=== PATIENT | male | born 1935 | race Caucasian/White ===

== ENCOUNTER → 2018-12-11 10:19 | Outpatient (CLI) | payer MEDICARE, SELFPAY ==
--- NOTE | 2018-12-11 10:28 | XR_ITS ---
XR foot wt bearing LT 3V HISTORY: Pain, ulceration ITS.REASON: Pressure ulcer ORDERING PHYSICIAN: La Colon DPM PATIENT AGE: 83 years COMPARISON: None FINDINGS: There is generalized vascular calcification. There is some increased density within Kagers fat pad suggesting some underlying inflammation or fluid. A small focal defect is present involving the first or aspect of the cuboid as seen on the lateral view. This does appear present well-circumscribed and may be chronic. Mild osteoarthritic changes are present at the first metatarsal tarsal joint. Normal alignment. No fracture or dislocation. IMPRESSION: Nonspecific findings with no definite acute finding
--- NOTE | 2018-12-11 10:28 | XR_ITS ---
XR calcaneus LT min 2V CLINICAL INDICATION: Pain, evaluate foreign body ITS.REASON: Pain, r/o FB ORDERING PHYSICIAN: La Colon DPM PATIENT AGE: 83 years Comparison: None FINDINGS: No radio opaque foreign body is evident over the calcaneus. There are small surgical clips along the lower tibia. There is vascular calcification noted. No evidence of osteomyelitis of the calcaneus. IMPRESSION: No acute finding of the calcaneus
== END ==
PROVIDERS: PCP Internal Medicine; Visit Provider Podiatrist
DX: L97.922 Non-pressure chronic ulcer of unspecified part of left lower leg with fat layer exposed (principal); L89.629 Pressure ulcer of left heel, unspecified stage
CPT/HCPCS: 73630; 73650

== ENCOUNTER → 2019-04-08 11:16 | Outpatient (CLI) | payer MEDICARE, SELFPAY ==
--- NOTE | 2019-04-08 11:33 | XR_ITS ---
XR chest 2V HISTORY: ITS.REASON: CHEST PAIN,HTN ORDERING PHYSICIAN: Oseas Kemp PATIENT AGE: 83 years COMPARISON: 12/12/1716 FINDINGS: There has been a prior median sternotomy and CABG. There is COPD with scattered fibrotic changes with elevation of the right hemidiaphragm. No lobar consolidation or collapse. The atelectatic/fibrotic changes appear slightly worse in the right lung base. 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 IMPRESSION: COPD with scattered fibrotic changes which appear slightly worse in the right lung base
[2019-04-08 14:26] LABS: Basophils % 0.4 % (0.1-2.0); Eosinophils # 0.1 K/mm3 (0.0-0.4); Eosinophils % 1.8 % (0.1-12.0); Hematocrit 40.4 % (42.0-52.0); Hemoglobin 12.6 g/dL (14.1-18.0); Lymphocytes # 1.6 K/mm3 (0.7-4.5); Lymphocytes % 25.8 % (10-50); Mean Corpuscular HGB Conc 31.3 g/dL (31.8-35.4); Mean Corpuscular Hemoglobin 30.4 pg (27.0-31.2); Mean Corpuscular Volume 97.1 fl (80-94); Monocytes # 0.5 K/mm3 (0.1-1.0); Monocytes % 7.5 % (1.7-9.3); Neutrophils # 4.1 K/mm3 (1.8-7.8); Neutrophils % 64.6 % (37.0-80.0); Platelet Count 193 K/mm3 (142-424); Red Blood Count 4.16 M/mm3 (4.60-6.20); Red Cell Distribution Width 12.7 % (11.5-17.5); White Blood Count 6.3 K/mm3 (4.8-10.8)
[2019-04-08 15:24] LABS: Glucose 105 mg/dL (74-106)
[2019-04-08 15:31] LABS: Anion Gap 12.1 mEq/L (5-15); Blood Urea Nitrogen 41 mg/dL (7-18); Calcium 8.9 mg/dL (8.5-10.1); Carbon Dioxide 27 mmol/L (21.0-32.0); Chloride 103 mmol/L (98-107); Creatinine,Serum 2.07 mg/dL (0.70-1.30); Estimated Glomerular Filt Rate 31 ml/min (>60); GFR (African American) 37 ML/MIN (>60); Potassium 5.1 mmoL/L (3.5-5.1); Sodium 137 mmol/L (136-145)
== END ==
PROVIDERS: PCP Internal Medicine; Visit Provider Internal Medicine
DX: R07.9 Chest pain, unspecified (principal); I25.10 Atherosclerotic heart disease of native coronary artery without angina pectoris; I10 Essential (primary) hypertension
CPT/HCPCS: 36415; 71046; 80048; 84484; 85025; 93005

== ENCOUNTER → 2021-05-19 14:57 | Outpatient (CLI) | payer MEDICARE, SELFPAY ==
--- NOTE | 2021-05-19 15:03 | XR_ITS ---
PROCEDURE: XR CERVICAL SPINE 5V CLINICAL INDICATION: LT NECK PAIN COMPARISON: No exams were available for comparison FINDINGS: There is slight reversal of the cervical lordosis. There is 3 mm anterolisthesis of C3 on C4 and 2 mm anterolisthesis of C2 on C3. Degenerative disc disease present at C4-C5 and C5-C6 with loss of disc space and anterior osteophytes. C7 is not well visualized despite a swimmer's view. Foraminal narrowing is present on the right from C3-T1 and on the left from C2-T1. Prominent facet hypertrophic changes are present from C3 to the C7. the patient's head is tilted toward the left. Incidental carotid artery calcifications noted on the left. No obvious acute fracture or dislocation. No lytic or blastic change. IMPRESSION: Multilevel cervical spondylosis as described above. Dictated by: Suman Finney MD 05/19/2021 15:35 Suman Finney MD in [facility] 05/19/2021 15:35
[2021-05-19 18:15] LABS: Basophils % 0.4 % (0.1-2.0); Eosinophils # 0.1 K/mm3 (0.0-0.4); Eosinophils % 0.9 % (0.1-12.0); Hematocrit 38.9 % (42.0-52.0); Hemoglobin 12.8 g/dL (14.1-18.0); Lymphocytes # 1.9 K/mm3 (0.7-4.5); Lymphocytes % 27.4 % (10-50); Mean Corpuscular HGB Conc 32.9 g/dL (31.8-35.4); Mean Corpuscular Hemoglobin 32.3 pg (27.0-31.2); Mean Corpuscular Volume 98.3 fl (80-94); Mean Platelet Volume 10.6 fl (7.4-10.4); Monocytes # 0.5 K/mm3 (0.1-1.0); Monocytes % 6.5 % (1.7-9.3); Neutrophils # 4.4 K/mm3 (1.8-7.8); Neutrophils % 64.8 % (37.0-80.0); Platelet Count 188 K/mm3 (142-424); Red Blood Count 3.96 M/mm3 (4.60-6.20); Red Cell Distribution Width 13.3 % (11.5-17.5); White Blood Count 6.9 K/mm3 (4.8-10.8)
[2021-05-19 19:14] LABS: Anion Gap 14.9 mEq/L (5-15); Blood Urea Nitrogen 49 mg/dl (9-20); Calcium 8.9 mg/dl (8.4-10.2); Carbon Dioxide 22 mmol/L (22.0-30.0); Chloride 108 mmol/L (98-107); Estimated Glomerular Filt Rate 39 ml/min (>60); GFR (African American) 47 ML/MIN (>60); Glucose 97 mg/dl (74-100); Potassium 4.9 mmoL/L (3.5-5.1); Sodium 140 mmol/L (136-145)
[2021-05-19 21:57] LABS: Erythrocyte Sedimentation Rate 26 mm/hr (0-20)
== END ==
PROVIDERS: PCP Internal Medicine; Visit Provider Internal Medicine
DX: M54.2 Cervicalgia (principal)
CPT/HCPCS: 72050; 80048; 85025; 85651

== ENCOUNTER → 2021-06-01 14:42 | Outpatient (CLI) | payer MEDICARE, SELFPAY ==
--- NOTE | 2021-06-01 14:47 | MR_ITS ---
PROCEDURE: MR HEAD/BRAIN WO CON CLINICAL INDICATION: HEADACHE WITH JAW PAIN Left-sided headache COMPARISON: No exams were available for comparison TECHNIQUE: Routine multiplanar multi echo sequences are performed without gadolinium enhancement. FINDINGS: No midline shift, mass effect, intracranial hemorrhage, or hydrocephalus evident. The cerebellopontine angles, cerebellum, and brainstem have an unremarkable appearance. There are a few T2 white matter hyperintensities in the periventricular region and 1 in the right basal ganglia consistent with ischemic gliotic changes from microvascular disease. No evidence of acute infarction. The pituitary, optic chiasm, corpus callosum, and craniocervical junction have an unremarkable appearance. No mastoid effusion or sinus air-fluid level. IMPRESSION: No acute intracranial findings. Dictated by: Suman Finney MD 06/02/2021 08:06 Suman Finney MD in [facility] 06/02/2021 08:06
== END ==
PROVIDERS: PCP Internal Medicine; Visit Provider Internal Medicine
DX: R51.9 Headache, unspecified (principal); R68.84 Jaw pain
CPT/HCPCS: 70551

== ENCOUNTER → 2021-08-18 12:26 | Outpatient (CLI) | payer MEDICARE, SELFPAY ==
[2021-08-18 12:57] LABS: Basophils % 0.2 % (0.1-2.0); Eosinophils # 0.1 K/mm3 (0.0-0.4); Eosinophils % 1.6 % (0.1-12.0); Hematocrit 34.5 % (42.0-52.0); Hemoglobin 11.5 g/dL (14.1-18.0); Lymphocytes # 1.5 K/mm3 (0.7-4.5); Lymphocytes % 25.6 % (10-50); Mean Corpuscular HGB Conc 33.3 g/dL (31.8-35.4); Mean Corpuscular Hemoglobin 33.2 pg (27.0-31.2); Mean Corpuscular Volume 99.9 fl (80-94); Mean Platelet Volume 10.5 fl (7.4-10.4); Monocytes # 0.4 K/mm3 (0.1-1.0); Monocytes % 7.3 % (1.7-9.3); Neutrophils # 3.7 K/mm3 (1.8-7.8); Neutrophils % 65.2 % (37.0-80.0); Platelet Count 176 K/mm3 (142-424); Red Blood Count 3.45 M/mm3 (4.60-6.20); Red Cell Distribution Width 12.8 % (11.5-17.5); White Blood Count 5.7 K/mm3 (4.8-10.8)
[2021-08-18 13:34] LABS: Alanine Aminotransferase 4 U/L (12-78); Albumin Level 3.4 g/dl (3.5-5.0); Albumin/Globulin Ratio 1.4 (1.1-1.8); Alkaline Phosphatase 64 U/L (38-126); Anion Gap 9.5 mEq/L (5-15); Aspartate Amino Transferase 20 U/L (17-59); Bilirubin,Total 0.5 mg/dl (0.2-1.3); Blood Urea Nitrogen 34 mg/dl (9-20); Calcium 8.7 mg/dl (8.4-10.2); Carbon Dioxide 29 mmol/L (22.0-30.0); Chloride 108 mmol/L (98-107); Chol/HDL Ratio 3.2 (1-3.5); Cholesterol 108 mg/dl (140-200); Estimated Glomerular Filt Rate 38 ml/min (>60); GFR (African American) 47 ML/MIN (>60); Globulin 2.5 g/dL (1.3-3.2); Glucose 92 mg/dl (74-100); HDL Cholesterol 34 mg/dl (40-60); Potassium 4.5 mmoL/L (3.5-5.1); Sodium 142 mmol/L (136-145); Total Protein,Serum 5.9 g/dl (6.3-8.2); Triglycerides 98 mg/dl (30-150); VLDL Cholesterol 20 mg/dL (0-40)
[2021-08-18 13:37] LABS: Carbamazepine (Tegretol) < 3.0 ug/ml (4.0-12.0)
[2021-08-18 13:42] LABS: Direct LDL Cholesterol 52.64 mg/dL (100-129)
[2021-08-18 16:33] LABS: Hemoglobin A1C 5.5 % (4.0-6.0)
== END ==
PROVIDERS: Visit Provider Internal Medicine
DX: I25.110 Atherosclerotic heart disease of native coronary artery with unstable angina pectoris (principal); I10 Essential (primary) hypertension; E78.5 Hyperlipidemia, unspecified; R73.01 Impaired fasting glucose; N18.2 Chronic kidney disease, stage 2 (mild); G50.0 Trigeminal neuralgia; B02.8 Zoster with other complications; Z51.81 Encounter for therapeutic drug level monitoring
CPT/HCPCS: 80053; 80061; 80156; 83036; 85025

== ENCOUNTER → 2021-11-26 16:12 | Outpatient (CLI) | payer MEDICARE, SELFPAY ==
[2021-11-26 16:25] LABS: Microscopic, Urine URINE MICROSCOPIC (MICROSCOPIC)
--- NOTE | 2021-11-26 16:35 | CT_ITS ---
PROCEDURE INFORMATION: Exam: CT Abdomen And Pelvis Without Contrast Exam date and time: 11/26/2021 4:35 PM Age: 86 years old Clinical indication: Abdominal pain; Localized; Left lower quadrant (llq); Prior surgery; Surgery type: Appendix; Patient HX: Llq pain; Additional info: Pain in abd TECHNIQUE: Imaging protocol: Computed tomography of the abdomen and pelvis without contrast. Radiation optimization: All CT scans at this facility use at least one of these dose optimization techniques: automated exposure control; mA and/or kV adjustment per patient size (includes targeted exams where dose is matched to clinical indication); or iterative reconstruction. COMPARISON: No relevant prior studies available. FINDINGS: Tubes, catheters and devices: There are sternal wires consistent with previous sternotomy incision. Lungs: Scarring/atelectasis at the lung bases without acute findings. Diaphragm: There is nonspecific elevation of the right hemidiaphragm. A small hiatal hernia is present. Liver: Normal. No mass. Gallbladder and bile ducts: Normal. No calcified stones. No ductal dilation. Pancreas: Normal. No ductal dilation. Spleen: Normal. No splenomegaly. Adrenal glands: Normal. No mass. Kidneys and ureters: Subcentimeter right renal hypodense lesions are too small to characterize but most probably benign representing cysts. The right kidney is otherwise unremarkable. The right ureter is normal. The left ureter is normal. The left kidney is normal. Stomach and bowel: Right upper quadrant colonic and gastric interposition. Diffusely air-filled loops of large bowel, as can be seen with bloating. No bowel obstruction. Colonic diverticulosis. No bowel wall thickening. Appendix: A normal appendix is identified. Intraperitoneal space: No free fluid, fluid collections, or pneumoperitoneum. Vasculature: The vasculature demonstrates diffuse marked atherosclerotic calcification. Lymph nodes: No retroperitoneal, pelvic, or mesenteric adenopathy. Urinary bladder: The bladder is decompressed. Reproductive: Unremarkable as visualized. Bones/joints: Prior lumbosacral spine fixation without discrete complications. No acute skeletal pathology. Severe multilevel degenerative changes of the spine, as manifested by multilevel anterior osteophytes and multilevel decrease in intervertebral disc space. Soft tissues: No acute body wall soft tissue findings. IMPRESSION: 1. Bloating and constipation without bowel obstruction or bowel inflammatory changes. 2. No other acute abdominopelvic pathology identified. 3. Incidental findings as above. COMMENTS: Consistent with the [employer]'s Incidental Findings Committee white paper (J Am Tyra Radiol 2018): Any incidental renal lesion less than 1 cm or classified as too small to characterize, or any incidental cystic renal lesion characterized as simple-appearing, is likely benign. No follow-up imaging is recommended for these lesions per consensus recommendations based on imaging criteria.
[2021-11-26 16:53] LABS: Appearance,Urine CLEAR (Clear); Bilirubin,Urine Negative (Negative); Blood, Urine 1+ (Negative); Color,Urine YELLOW (Yellow); Glucose,Urine (UA) Negative (Negative); Ketones,Urine Negative (Negative); Leukocyte Esterase,Urine Negative (Negative); Nitrate,Urine Negative (Negative); Protein,Urine Negative (Negative)
[2021-11-26 17:06] LABS: WBC,Urine Occasional #/hpf (0-3)
[2021-11-26 17:07] LABS: Bacteria,Urine Trace /lpf
[2021-11-26 17:10] LABS: Basophils % 0.5 % (0.1-2.0); Eosinophils # 0.1 K/mm3 (0.0-0.4); Eosinophils % 0.6 % (0.1-12.0); Hematocrit 41.1 % (42.0-52.0); Hemoglobin 13.5 g/dL (14.1-18.0); Lymphocytes # 2.7 K/mm3 (0.7-4.5); Lymphocytes % 31.7 % (10-50); Mean Corpuscular HGB Conc 32.8 g/dL (31.8-35.4); Mean Corpuscular Hemoglobin 32.7 pg (27.0-31.2); Mean Corpuscular Volume 99.8 fl (80-94); Mean Platelet Volume 10.1 fl (7.4-10.4); Monocytes # 0.6 K/mm3 (0.1-1.0); Monocytes % 7.2 % (1.7-9.3); Neutrophils # 5.2 K/mm3 (1.8-7.8); Platelet Count 205 K/mm3 (142-424); Red Blood Count 4.12 M/mm3 (4.60-6.20); Red Cell Distribution Width 12.5 % (11.5-17.5); White Blood Count 8.6 K/mm3 (4.8-10.8)
== END ==
PROVIDERS: PCP Internal Medicine; Visit Provider Internal Medicine
DX: R10.32 Left lower quadrant pain (principal)
CPT/HCPCS: 36415; 74176; 81001; 85025

== ENCOUNTER → 2022-02-15 11:42 | Outpatient (CLI) | payer MEDICARE, SELFPAY ==
[2022-02-15 14:32] LABS: Alanine Aminotransferase 12 U/L (12-78); Albumin Level 3.4 g/dl (3.5-5.0); Albumin/Globulin Ratio 1.3 (1.1-1.8); Alkaline Phosphatase 70 U/L (38-126); Anion Gap 13.1 mEq/L (5-15); Aspartate Amino Transferase 18 U/L (17-59); Bilirubin,Total 0.4 mg/dl (0.2-1.3); Blood Urea Nitrogen 41 mg/dl (9-20); Calcium 8.4 mg/dl (8.4-10.2); Carbon Dioxide 24 mmol/L (22.0-30.0); Chloride 106 mmol/L (98-107); Chol/HDL Ratio 3.1 (1-3.5); Cholesterol 113 mg/dl (140-200); Estimated Glomerular Filt Rate 41 ml/min (>60); GFR (African American) 50 ML/MIN (>60); Globulin 2.6 g/dL (1.3-3.2); Glucose 97 mg/dl (74-100); HDL Cholesterol 37 mg/dl (40-60); Potassium 4.1 mmoL/L (3.5-5.1); Sodium 139 mmol/L (136-145); Triglycerides 85 mg/dl (30-150); VLDL Cholesterol 17 mg/dL (0-40)
== END ==
PROVIDERS: PCP Internal Medicine; Visit Provider Internal Medicine
DX: I25.10 Atherosclerotic heart disease of native coronary artery without angina pectoris (principal); I10 Essential (primary) hypertension; E78.5 Hyperlipidemia, unspecified; N18.30 Chronic kidney disease, stage 3 unspecified
CPT/HCPCS: 80053; 80061

== ENCOUNTER → 2022-05-17 15:45 | Outpatient (CLI) | payer MEDICARE, SELFPAY | PROVIDERS: PCP Internal Medicine; Visit Provider Internal Medicine | DX: U07.1 COVID-19 (principal) | CPT/HCPCS: C9803; U0003; U0005 ==

== ENCOUNTER → 2022-08-31 13:56 | Outpatient (CLI) | payer MEDICARE, SELFPAY ==
[2022-08-31 15:48] LABS: Basophils % 0.4 % (0.1-2.0); Eosinophils # 0.1 K/mm3 (0.0-0.4); Eosinophils % 1.5 % (0.1-12.0); Hematocrit 35.8 % (42.0-52.0); Hemoglobin 11.8 g/dL (14.1-18.0); Lymphocytes # 2.1 K/mm3 (0.7-4.5); Lymphocytes % 30.9 % (10-50); Mean Corpuscular Hemoglobin 33.2 pg (27.0-31.2); Mean Corpuscular Volume 100.6 fl (80-94); Mean Platelet Volume 10.4 fl (7.4-10.4); Monocytes # 0.6 K/mm3 (0.1-1.0); Neutrophils % 58.2 % (37.0-80.0); Platelet Count 191 K/mm3 (142-424); Red Blood Count 3.56 M/mm3 (4.60-6.20); Red Cell Distribution Width 12.8 % (11.5-17.5); White Blood Count 6.8 K/mm3 (4.8-10.8)
[2022-08-31 16:42] LABS: Alanine Aminotransferase 13 U/L (12-78); Albumin Level 3.7 g/dl (3.5-5.0); Albumin/Globulin Ratio 1.4 (1.1-1.8); Alkaline Phosphatase 98 U/L (38-126); Anion Gap 13.5 mEq/L (5-15); Aspartate Amino Transferase 19 U/L (17-59); Bilirubin,Total 0.6 mg/dl (0.2-1.3); Blood Urea Nitrogen 39 mg/dl (9-20); Calcium 8.5 mg/dl (8.4-10.2); Carbon Dioxide 26 mmol/L (22.0-30.0); Chloride 105 mmol/L (98-107); Chol/HDL Ratio 3.2 (1-3.5); Cholesterol 125 mg/dl (140-200); Estimated Glomerular Filt Rate 36 ml/min (>60); GFR (African American) 44 ML/MIN (>60); Globulin 2.6 g/dL (1.3-3.2); Glucose 92 mg/dl (74-100); HDL Cholesterol 39 mg/dl (40-60); Potassium 4.5 mmoL/L (3.5-5.1); Sodium 140 mmol/L (136-145); Total Protein,Serum 6.3 g/dl (6.3-8.2); Triglycerides 115 mg/dl (30-150); VLDL Cholesterol 23 mg/dL (0-40)
[2022-08-31 16:53] LABS: Direct LDL Cholesterol 58.16 mg/dL (100-129)
[2022-08-31 17:11] LABS: Prostate Specific Ag Screen 0.4 ng/ml (0.0-4.0)
[2022-08-31 23:50] LABS: Folate 5.94 ng/mL; Vitamin B12 239 pg/mL (239-931)
== END ==
PROVIDERS: PCP Internal Medicine; Visit Provider Internal Medicine
DX: I25.10 Atherosclerotic heart disease of native coronary artery without angina pectoris (principal); I10 Essential (primary) hypertension; E78.5 Hyperlipidemia, unspecified; D75.89 Other specified diseases of blood and blood-forming organs; N40.1 Benign prostatic hyperplasia with lower urinary tract symptoms; Z12.5 Encounter for screening for malignant neoplasm of prostate
CPT/HCPCS: 80053; 80061; 82607; 82746; 85025; G0103

== ENCOUNTER → 2023-02-28 12:30 | Outpatient (CLI) | payer MEDICARE, SELFPAY ==
[2023-02-28 16:21] LABS: Basophils % 0.3 % (0.1-2.0); Eosinophils # 0.2 K/mm3 (0.0-0.4); Eosinophils % 3.2 % (0.1-12.0); Hematocrit 33.8 % (42.0-52.0); Hemoglobin 10.8 g/dL (14.1-18.0); Lymphocytes # 1.3 K/mm3 (0.7-4.5); Lymphocytes % 22.4 % (10-50); Mean Corpuscular Volume 100.3 fl (80-94); Mean Platelet Volume 10.1 fl (7.4-10.4); Monocytes # 0.4 K/mm3 (0.1-1.0); Monocytes % 7.7 % (1.7-9.3); Neutrophils # 3.8 K/mm3 (1.8-7.8); Neutrophils % 66.5 % (37.0-80.0); Platelet Count 130 K/mm3 (142-424); Red Blood Count 3.37 M/mm3 (4.60-6.20); Red Cell Distribution Width 12.5 % (11.5-17.5); White Blood Count 5.8 K/mm3 (4.8-10.8)
[2023-02-28 16:48] LABS: Alanine Aminotransferase 15 U/L (12-78); Albumin Level 3.3 g/dl (3.5-5.0); Albumin/Globulin Ratio 1.4 (1.1-1.8); Alkaline Phosphatase 68 U/L (38-126); Anion Gap 15.4 mEq/L (5-15); Aspartate Amino Transferase 18 U/L (17-59); Bilirubin,Total 0.5 mg/dl (0.2-1.3); Blood Urea Nitrogen 47 mg/dl (9-20); Calcium 7.8 mg/dl (8.4-10.2); Carbon Dioxide 24 mmol/L (22.0-30.0); Chloride 107 mmol/L (98-107); Chol/HDL Ratio 2.5 (1-3.5); Cholesterol 96 mg/dl (140-200); Estimated Glomerular Filt Rate 36 ml/min (>60); GFR (African American) 44 ML/MIN (>60); Globulin 2.4 g/dL (1.3-3.2); Glucose 93 mg/dl (74-100); HDL Cholesterol 38 mg/dl (40-60); Potassium 4.4 mmoL/L (3.5-5.1); Sodium 142 mmol/L (136-145); Total Protein,Serum 5.7 g/dl (6.3-8.2); Triglycerides 87 mg/dl (30-150); VLDL Cholesterol 17 mg/dL (0-40)
[2023-02-28 16:59] LABS: Direct LDL Cholesterol 45.75 mg/dL (100-129)
== END ==
PROVIDERS: PCP Internal Medicine; Visit Provider Internal Medicine
DX: I25.10 Atherosclerotic heart disease of native coronary artery without angina pectoris (principal); I10 Essential (primary) hypertension; E78.5 Hyperlipidemia, unspecified; M15.0 Primary generalized (osteo)arthritis; N18.9 Chronic kidney disease, unspecified
CPT/HCPCS: 80053; 80061; 85025

== ENCOUNTER → 2023-08-30 11:54 | Outpatient (CLI) | payer MEDICARE, SELFPAY ==
[2023-08-30 14:27] LABS: Alanine Aminotransferase 14 U/L (12-78); Albumin Level 3.6 g/dl (3.5-5.0); Albumin/Globulin Ratio 1.4 (1.1-1.8); Alkaline Phosphatase 58 U/L (38-126); Anion Gap 10.4 mEq/L (5-15); Aspartate Amino Transferase 18 U/L (17-59); Bilirubin,Total 0.6 mg/dl (0.2-1.3); Blood Urea Nitrogen 44 mg/dl (9-20); Calcium 7.8 mg/dl (8.4-10.2); Carbon Dioxide 26 mmol/L (22.0-30.0); Chloride 106 mmol/L (98-107); Chol/HDL Ratio 2.4 (1-3.5); Cholesterol 92 mg/dl (140-200); Estimated Glomerular Filt Rate 34 ml/min (>60); GFR (African American) 41 ML/MIN (>60); Globulin 2.5 g/dL (1.3-3.2); Glucose 98 mg/dl (74-100); HDL Cholesterol 39 mg/dl (40-60); Potassium 4.4 mmoL/L (3.5-5.1); Sodium 138 mmol/L (136-145); Total Protein,Serum 6.1 g/dl (6.3-8.2); Triglycerides 69 mg/dl (30-150); VLDL Cholesterol 14 mg/dL (0-40)
[2023-08-30 14:38] LABS: Direct LDL Cholesterol 46.41 mg/dL (100-129)
[2023-08-30 14:57] LABS: Prostate Specific Ag Screen 0.4 ng/ml (0.0-4.0)
== END ==
PROVIDERS: PCP Internal Medicine; Visit Provider Internal Medicine
DX: I25.10 Atherosclerotic heart disease of native coronary artery without angina pectoris (principal); I10 Essential (primary) hypertension; E78.5 Hyperlipidemia, unspecified; M15.0 Primary generalized (osteo)arthritis; N40.1 Benign prostatic hyperplasia with lower urinary tract symptoms; Z12.5 Encounter for screening for malignant neoplasm of prostate
CPT/HCPCS: 80053; 80061; G0103

== ENCOUNTER 2023-12-11 15:36 | Outpatient (CLI) | payer MEDICARE, SELFPAY ==
[2023-12-11 16:00] LABS: Basophils % 0.4 % (0.1-2.0); Eosinophils # 0.1 K/mm3 (0.0-0.4); Eosinophils % 1.1 % (0.1-12.0); Hematocrit 34.9 % (42.0-52.0); Hemoglobin 11.3 g/dL (14.1-18.0); Lymphocytes # 1.2 K/mm3 (0.7-4.5); Lymphocytes % 19.8 % (10-50); Mean Corpuscular HGB Conc 32.4 g/dL (31.8-35.4); Mean Corpuscular Hemoglobin 34.3 pg (27.0-31.2); Mean Corpuscular Volume 105.8 fl (80-94); Mean Platelet Volume 10.4 fl (7.4-10.4); Monocytes # 0.4 K/mm3 (0.1-1.0); Monocytes % 5.7 % (1.7-9.3); Neutrophils # 4.5 K/mm3 (1.8-7.8); Neutrophils % 73.1 % (37.0-80.0); Platelet Count 142 K/mm3 (142-424); Red Cell Distribution Width 12.9 % (11.5-17.5); White Blood Count 6.1 K/mm3 (4.8-10.8)
--- NOTE | 2023-12-11 16:03 | XR_ITS ---
FINAL REPORT CLINICAL HISTORY: HEADACHE; SHORTNESS OF BREATH; COUGH COMPARISON: 04/08/2019 FINDINGS: Two views of the chest were obtained. There is cardiomegaly. The patient is status post median sternotomy. There is elevation of the right hemidiaphragm. Right basilar opacities are favored to represent atelectasis over pneumonia. There is no pneumothorax. The bony thorax is intact. IMPRESSION: Right basilar opacities are favored to represent atelectasis over pneumonia. Reviewed, Interpreted and Dictated by Chilango Canales III, MD Transcribed by Aria Schultz Authenticated and [facility]
[2023-12-11 16:11] LABS: Alanine Aminotransferase 13 U/L (12-78); Albumin Level 3.7 g/dl (3.5-5.0); Albumin/Globulin Ratio 1.3 (1.1-1.8); Alkaline Phosphatase 66 U/L (38-126); Anion Gap 12.2 mEq/L (5-15); Aspartate Amino Transferase 17 U/L (17-59); Blood Urea Nitrogen 41 mg/dl (9-20); Calcium 8.9 mg/dl (8.4-10.2); Carbon Dioxide 23 mmol/L (22.0-30.0); Chloride 109 mmol/L (98-107); Estimated Glomerular Filt Rate 34 ml/min (>60); GFR (African American) 41 ML/MIN (>60); Globulin 2.9 g/dL (1.3-3.2); Glucose 109 mg/dl (74-100); Potassium 4.2 mmoL/L (3.5-5.1); Sodium 140 mmol/L (136-145); Total Protein,Serum 6.6 g/dl (6.3-8.2)
[2023-12-11 16:22] LABS: NT Pro Brain Natriuretic Pep. 6980 pg/mL (0-450)
[2023-12-11 17:04] LABS: Erythrocyte Sedimentation Rate 53 mm/hr (0-20)
== END 2023-12-11 23:59 ==
LOC: LAB 15:38
PROVIDERS: PCP Internal Medicine; Visit Provider Internal Medicine
DX: R06.02 Shortness of breath (principal); R05.1 Acute cough; R51.9 Headache, unspecified
CPT/HCPCS: 36415; 71046; 80053; 83880; 85025; 85651

== ENCOUNTER 2023-12-16 20:12 | Emergency (ER) | payer MEDICARE, SELFPAY ==
[2023-12-16 20:20] VITALS: BP 160/80; PULSE 104; RESP 24; TEMP 36.4; O2SAT 94; BMI 33.5
--- NOTE | 2023-12-16 20:23 | ECG_ITS ---
APPROVED REPORT Exam: Resting ECG HR:105 bpm ECG Measurements Heart Rate 105 AXES TX 148 P 45 QRSd 85 QRS 45 QT 339 T 2 QTc 400 Critical Notification Critical Value: No Conclusion SINUS TACHYCARDIA WITH FREQUENT VENTRICULAR PREMATURE COMPLEXES NONSPECIFIC T-WAVE ABNORMALITY ABNORMAL RHYTHM ECG Electronically signed by : ABRAHAN COMBS, 12/17/2023 01:48:06
--- NOTE | 2023-12-16 20:35 | XR_ITS ---
PROCEDURE INFORMATION: Exam: XR Right Shoulder Exam date and time: 12/16/2023 9:30 PM Age: 88 years old Clinical indication: Pain; Shoulder; Right; Additional info: Severe atraumatic pain TECHNIQUE: Imaging protocol: Radiologic exam of the right shoulder. Views: 2 or more views. COMPARISON: CT SHOULDER RT W CON 12/16/2023 9:13 PM FINDINGS: Bones/joints: Severe degenerative change of the acromioclavicular and glenohumeral joints. No fracture or destructive lesion. Soft tissues: Normal. IMPRESSION: Severe degenerative change of the acromioclavicular and glenohumeral joints.
--- NOTE | 2023-12-16 20:35 | CT_ITS ---
PROCEDURE INFORMATION: Exam: CTA Chest With Contrast Exam date and time: 12/16/2023 9:13 PM Age: 88 years old Clinical indication: Pain; Right-sided; Additional info: Recent cap R, severe R upper and shoulder pain TECHNIQUE: Imaging protocol: Computed tomographic angiography of the chest with contrast. Exam focused on the arteries. 3D rendering (Not supervised by radiologist): MIP and/or 3D reconstructed images were created by the technologist. Radiation optimization: All CT scans at this facility use at least one of these dose optimization techniques: automated exposure control; mA and/or kV adjustment per patient size (includes targeted exams where dose is matched to clinical indication); or iterative reconstruction. Contrast material: ISOVUE 370; Contrast volume: 70 ml; Contrast route: INTRAVENOUS (IV); COMPARISON: CR XR CHEST 2V 12/11/2023 4:05 PM FINDINGS: Limitations: Significant motion artifact could obscure segmental or subsegmental pulmonary emboli. Pulmonary arteries: Normal caliber pulmonary arteries. No central pulmonary emboli. Aorta: Mild thoracic aortic and arch vessel atherosclerotic disease without aneurysm or dissection. Lungs: Bibasilar atelectasis, right greater than left. Elevated right hemidiaphragm. Pleural spaces: Unremarkable. No pneumothorax. No pleural effusion. Heart: Unremarkable. No cardiomegaly. No pericardial effusion. Heart RV/LV ratio: 1.0. Coronary arteries: Status post CABG. Densely calcified [place] coronary arteries. Lymph nodes: Calcified subcarinal and left hilar lymph nodes. No adenopathy. Bones/joints: Severe degenerative change of the right acromioclavicular and bilateral glenohumeral joints. Sternal wires in place. Soft tissues: Unremarkable. IMPRESSION: 1. Significant motion artifact could obscure segmental or subsegmental pulmonary emboli. 2. Normal caliber pulmonary arteries. No central pulmonary emboli. 3. Bibasilar atelectasis. 4. Status post CABG.
--- NOTE | 2023-12-16 20:42 | ED_ITS ---
Discharge Plan Disposition Patient Disposition: Home, Self-Care Prescriptions Prescriptions: New prednisone 50 mg tablet 50 mg PO DAILY 5 Days Qty: 5 0RF methocarbamol 500 mg tablet 1,000 mg PO Q8H PRN (Reason: muscle spasm) Qty: 30 0RF No Action finasteride 5 mg tablet 5 mg PO DAILY atorvastatin 40 mg tablet 40 mg PO DAILY naproxen 500 mg tablet 500 mg PO BID esomeprazole magnesium 40 mg capsule,delayed release(DR/EC) 40 mg PO DAILY metoprolol tartrate 100 mg tablet 100 mg PO BID doxazosin 2 mg tablet 2 mg PO DAILY lisinopril 20 mg tablet 20 mg PO DAILY hydrochlorothiazide 25 mg tablet 25 mg PO DAILY aspirin [Adult Low Dose Aspirin] 81 mg tablet,delayed release (DR/EC) 81 mg PO DAILY Referrals Follow up/Referrals: Oseas Kemp MD [Primary Care Provider] - See instructions Dominic Colunga DO [Staff Physician] - See instructions Activity Restrictions/Add. Instructions Additional Instructions/Restrictions: At this time it was felt you are safe to be discharged home. If new or worsening symptoms please do not hesitate to return the emergency department. Please call and schedule appoint with Dr. Colunga as soon as you are able. Please take your medication as prescribed. Clinical Impressions Clinical Impression: Acute shoulder pain, Joint effusion Discharge ED Provider: Praneeth Montilla Adult HPI General Chief complaint: Extremity Injury, Upper Stated complaint: RT shoulder pain Time Seen by Provider: 12/16/23 20:22 Mode of Arrival: Family Vehicle Source of Information: Patient Limitations: No Limitations Description of Symptoms (Recalled from ER Triage Doc. by RN): 88 yo male presents with right shoulder pain with movement. PMH: includes arthritis in that area, however he states that he typically wakes up sore and once he moves it some he is pretty independent. Today however without injuring the arm, he has woken up with 10/10 pain with movement. Recent dx: atelectasis vs pneumonia on 12/10 CXR. Patient is currently taking antibiotics per his pcp. Denies injury/fall. History of Present Illness HPI narrative: Patient is a 88-year-old male with past medical history of arthritis, CKD, hypertension, hyperlipidemia, previous coronary artery bypass who presents emergency department for evaluation of shoulder pain. Patient intermittently does have some pain with arthritis in his shoulder however he is typically able to range it freely without significant symptoms. Patient denies trauma. His functional baseline is poor with difficulty ambulating. He awoke today with spontaneous right shoulder pain which has significantly limited his range of motion. Even the slightest movement causes excruciating pain in his right shoulder. Denies chest pain, abdominal pain, other extremity pain. Due to persistent symptoms he presents here for continued evaluation. Related Data Home Medications Medication Instructions Recorded Confirmed aspirin 81 mg tablet,delayed 81 mg PO DAILY 11/27/18 12/11/18 release (Adult Low Dose Aspirin) atorvastatin 40 mg tablet 40 mg PO DAILY 11/27/18 12/11/18 doxazosin 2 mg tablet 2 mg PO DAILY 11/27/18 12/11/18 esomeprazole magnesium 40 mg 40 mg PO DAILY 11/27/18 12/11/18 capsule,delayed release finasteride 5 mg tablet 5 mg PO DAILY 11/27/18 12/11/18 hydrochlorothiazide 25 mg tablet 25 mg PO DAILY 11/27/18 12/11/18 lisinopril 20 mg tablet 20 mg PO DAILY 11/27/18 12/11/18 metoprolol tartrate 100 mg tablet 100 mg PO BID 11/27/18 12/11/18 naproxen 500 mg tablet 500 mg PO BID 11/27/18 12/11/18 Previous Rx's Medication Instructions Recorded prednisone 50 mg tablet 50 mg PO DAILY 5 days #5 tabs 12/16/23 methocarbamol 500 mg tablet 1,000 mg (2 x 500 mg) PO Q8H PRN 12/17/23 muscle spasm #30 tabs Allergies Allergy/AdvReac Type Severity Reaction Status Date / Time No Known Allergies Allergy Verified 12/11/18 09:54 [facility] Disclaimer: The information contained in this section may have been updated after the patient was seen, as this information can be updated by other users. Social History Smoking Status: Unknown if ever smoked alcohol intake: never current occupational status: retired Travel in the last 8 weeks: None ROS Obtained: Yes Systems reviewed as appropriate & no additional complaints except as documented Physical Exam General General appearance: alert and other (Appearing in pain in bed.) Head Head exam: atraumatic and normocephalic Eye Eye exam: Present PERRL ENT ENT exam: Present mucous membranes moist Neck Neck exam: Present normal inspection Chest Chest inspection: Present normal inspection and symmetric chest wall rise Respiratory Respiratory exam: Present normal lung sounds bilaterally; Absent respiratory distress Cardiovascular Cardiovascular exam: Present regular rate, normal rhythm and other (Palpable right radial pulse.) Abdominal Exam Abdominal exam: Present soft; Absent tenderness Extremities Exam Extremities exam: Present normal inspection and other (Severely limited range of motion right shoulder secondary to pain. No tenderness or limited range of motion at the right elbow, wrist, hand.) Neurological Exam Neurological exam: Present alert Psychiatric Psychiatric exam: Present normal affect Skin Skin exam: Present warm and dry Medical Decision Making Jerome Inquiry Pt receiving controlled substance: No Vital Signs: 12/16/23 20:20 12/16/23 22:01 12/16/23 22:35 Temperature 97.6 F Temperature Source Oral Pulse Rate 85 75 Pulse Rate [Left Radial] 104 H Respiratory Rate 24 Blood Pressure 187/76 H 158/68 H Blood Pressure [Left Arm] 160/80 H Blood Pressure Mean 89 98 Blood Pressure Mean [Left Arm] 106 Blood Pressure Source [Left Arm] Automatic Cuff Blood Pressure Position [Left Arm] Sitting 02 Sat by Pulse Oximetry 94 L 94 L 96 Oxygen Delivery Method Room Air Room Air Room Air 12/16/23 23:00 12/16/23 23:30 12/17/23 00:00 Temperature Temperature Source Pulse Rate 76 75 98 H Pulse Rate [Left Radial] Respiratory Rate Blood Pressure 135/78 133/76 146/69 H Blood Pressure [Left Arm] Blood Pressure Mean 97 107 105 Blood Pressure Mean [Left Arm] Blood Pressure Source [Left Arm] Blood Pressure Position [Left Arm] 02 Sat by Pulse Oximetry 95 93 L 94 L Oxygen Delivery Method Lab Data Lab Results 12/16/23 20:29: WBC 10.5, RBC 3.30 L, Hgb 11.2 L, Hct 34.9 L, MCV 105.7 H, MCH 33.9 H, MCHC 32.1, RDW 13.0, Plt Count 144, MPV 10.4, Neut % (Auto) 76.6, Lymph % (Auto) 14.1, [place] % (Auto) 9.0, Eos % (Auto) 0.1, Baso % (Auto) 0.2, Neut # (Auto) 8.1 H, Lymph # (Auto) 1.5, [place] # (Auto) 0.9, Eos # (Auto) 0.0, Baso # (Auto) 0.0, ESR 55 H, Sodium 140, Potassium 4.1, Chloride 110 H, Carbon Dioxide 26, Anion Gap 8.1, BUN 34 H, Creatinine 2.00 H, Estimated Creat Clear 40, E stimated GFR 32 L, Est GFR ( Amer) 38 L, Glucose 116 H, Calcium 8.8, Total Bilirubin 1.0, AST 25, ALT 19, Alkaline Phosphatase 67, Troponin I 0.07 H, Total Protein 6.6, Albumin 3.7, Globulin 2.9, Albumin/Globulin Ratio 1.3 12/16/23 23:30: Troponin I 0.08 H 12/16/23 20:29 12/16/23 20:29 Orders (Tests/Meds): ED MEDICATIONS Generic Name Dose Route Start Last Admin Trade Name Freq PRN Reason Stop Dose Admin Methocarbamol 1,000 mg 12/17/23 00:28 12/17/23 00:29 Methocarbamol 500mg Tablet PO 12/17/23 00:29 1,000 mg ONCE ONE Administration Discontinued Medications Generic Name Dose Route Start Last Admin Trade Name Freq PRN Reason Stop Dose Admin Acetaminophen 1,000 mg 12/16/23 20:35 12/16/23 20:46 Acetaminophen 1,000mg/100ml Vial IV 12/16/23 20:36 1,000 mg ONCE ONE Administration Iopamidol 70 ml 12/16/23 21:42 12/16/23 21:45 Iopamidol-370 (76%);100ml Bottle IV 12/16/23 21:43 70 ml ONCE ONE Administration Morphine Sulfate 4 mg 12/16/23 20:35 12/16/23 20:46 Morphine 4mg/Ml Syringe IV 12/16/23 20:36 4 mg ONCE ONE Administration Prednisone 40 mg 12/16/23 23:55 12/17/23 00:26 Prednisone 20mg Tab PO 12/16/23 23:56 Not Given ONCE ONE Sodium Chloride 10 ml 12/16/23 21:42 12/16/23 21:45 Sodium Chloride 0.9% 10ml Syr (Rad Only) IV 12/16/23 21:43 10 ml ONCE ONE Administration Sodium Chloride 50 ml 12/16/23 21:42 12/16/23 21:45 0.9 % Sodium Chloride 50 Ml Vial IV 03/23/24 21:43 50 ml ONCE ONE Administration ORDERS Category Date Time Status CT angio chest PE protocol Stat Cat Scan 12/16/23 20:[address] shoulder RT w con Stat Cat Scan 12/16/23 20:46 Completed Shoulder XR right miminum 2 views [XR shoulder RT min Exams 12/16/23 20:35 Completed 2V] Stat CBC w/Auto Diff [Complete Blood Count Auto Diff] Stat Lab 12/16/23 20:29 Completed CMP [Comprehensive Metabolic Panel] Stat Lab 12/16/23 20:29 Completed ESR [Erythrocyte Sedimentation Rate] Stat Lab 12/16/23 20:29 Completed Trop I [Troponin I] Stat Lab 12/16/23 20:29 Completed Troponin I Q3H Lab 12/16/23 23:30 Completed Troponin I Q3H Lab 12/17/23 02:45 Ordered Troponin I Q3H Lab 12/17/23 02:46 Ordered ECG Data Tracing #1: Independently interpreted by me, rate is 105, rhythm is irregular, sinus with frequent PVCs, QTc 400, no ST elevation in anatomical contiguous leads. Medical Decision Narrative: In summary patient is 88-year-old male with past medical history described above presents emergency department for evaluation of atraumatic right shoulder pain. Patient is hemodynamically stable and appearing in significant pain upon arrival, slight tachycardia. Given patient was diagnosed with pneumonia could be that he has upper lobe pneumonia with resultant inflammatory changes extending in his shoulder, he may have adhesive capsulitis however this severe precipitous decline makes that less likely. Septic arthritis is on the differential as well as atypical ACS and pulmonary embolism. Workup will be conducted with hematologic labs, CTA chest, plain film right shoulder. Initial inventions include Tylenol, morphine. Initial workup reviewed by me, hematologic labs are nonactionable, ESR is mildly elevated at 55, stable CKD. Initial troponin is elevated in the setting of CKD however patient does not have chest pain and will be trended. CT imaging shows no evidence of dissection or pulmonary embolus, status post CABG. CT shoulder shows severe degenerative disc disease, intra-articular osseous bodies in the glenohumeral joint with a moderate right glenohumeral joint effusion. Patient's shoulder is not red or hot. The case was discussed with orthopedics who agrees that it is very unlikely to represent septic arthritis or crystal arthropathy. Given this patient will be placed in a sling for comfort and will follow-up with orthopedics on an outpatient basis. Serial troponins have no significant delta. Patient has no chest pain and has never had chest pain. Given this ACS is incredibly unlikely and further workup or imaging is not indicated at this time. Patient is appropriate for discharge at this time will be discharged with a course of steroids and methocarbamol. Critical Care Critical Care Time Critical Care Time: No
[2023-12-16] MEDS: MORPHINE 4MG/ML SYRINGE 4 MG IV (20:46)
[2023-12-16] MEDS: ACETAMINOPHEN 1,000MG/100ML VIAL 1000 MG IV (20:46)
--- NOTE | 2023-12-16 20:46 | CT_ITS ---
PROCEDURE INFORMATION: Exam: CT Right Upper Extremity With Contrast, Shoulder Exam date and time: 12/16/2023 9:13 PM Age: 88 years old Clinical indication: Pain; Shoulder; Right; Additional info: Severe pain atraumatic TECHNIQUE: Imaging protocol: Computed tomography of the right upper extremity with contrast. Exam focused on the shoulder Radiation optimization: All CT scans at this facility use at least one of these dose optimization techniques: automated exposure control; mA and/or kV adjustment per patient size (includes targeted exams where dose is matched to clinical indication); or iterative reconstruction. Contrast material: ISOVUE; Contrast volume: 70 ml; Contrast route: IV; COMPARISON: CT ANGIO CHEST PE PROTOCOL 12/16/2023 9:13 PM FINDINGS: Bones/joints: Severe degenerative joint disease of the right acromioclavicular and glenohumeral joints. No fracture or destructive lesion. Moderate right glenohumeral joint effusion. Several intra-articular osseous loose bodies in the glenohumeral joint. Soft tissues: Normal. IMPRESSION: 1. Severe degenerative joint disease of the right acromioclavicular and glenohumeral joints. 2. No fracture or destructive lesion. Moderate right glenohumeral joint effusion. 3. Several intra-articular osseous loose bodies in the glenohumeral joint.
[2023-12-16 21:00] LABS: Basophils % 0.2 % (0.1-2.0); Eosinophils % 0.1 % (0.1-12.0); Hematocrit 34.9 % (42.0-52.0); Hemoglobin 11.2 g/dL (14.1-18.0); Lymphocytes # 1.5 K/mm3 (0.7-4.5); Lymphocytes % 14.1 % (10-50); Mean Corpuscular HGB Conc 32.1 g/dL (31.8-35.4); Mean Corpuscular Hemoglobin 33.9 pg (27.0-31.2); Mean Corpuscular Volume 105.7 fl (80-94); Mean Platelet Volume 10.4 fl (7.4-10.4); Monocytes # 0.9 K/mm3 (0.1-1.0); Neutrophils # 8.1 K/mm3 (1.8-7.8); Neutrophils % 76.6 % (37.0-80.0); Platelet Count 144 K/mm3 (142-424); White Blood Count 10.5 K/mm3 (4.8-10.8)
[2023-12-16 21:01] LABS: Chloride 110 mmol/L (98-107); Potassium 4.1 mmoL/L (3.5-5.1); Sodium 140 mmol/L (136-145)
[2023-12-16 21:03] LABS: Alanine Aminotransferase 19 U/L (12-78); Aspartate Amino Transferase 25 U/L (17-59); Blood Urea Nitrogen 34 mg/dl (9-20); Creatinine Clearance Estimated 40 mL/min (50-200); Estimated Glomerular Filt Rate 32 ml/min (>60); GFR (African American) 38 ML/MIN (>60)
[2023-12-16 21:04] LABS: Albumin Level 3.7 g/dl (3.5-5.0); Albumin/Globulin Ratio 1.3 (1.1-1.8); Alkaline Phosphatase 67 U/L (38-126); Anion Gap 8.1 mEq/L (5-15); Calcium 8.8 mg/dl (8.4-10.2); Carbon Dioxide 26 mmol/L (22.0-30.0); Globulin 2.9 g/dL (1.3-3.2); Glucose 116 mg/dl (74-100); Total Protein,Serum 6.6 g/dl (6.3-8.2)
--- NOTE | 2023-12-16 21:12 | PC.NURSE ---
rounded on patient, states he is feeling better
[2023-12-16 21:16] LABS: Troponin I 0.07 ng/ml (0.00-0.034)
--- NOTE | 2023-12-16 21:22 | PC.NURSE ---
pt to radiology at this time
--- NOTE | 2023-12-16 21:23 | PC.NURSE ---
pat to ct
[2023-12-16 21:45] LABS: Erythrocyte Sedimentation Rate 55 mm/hr (0-20)
[2023-12-16] MEDS: SODIUM CHLORIDE 0.9% 10ML SYR (RAD ONLY) 10 ML IV (21:45)
[2023-12-16] MEDS: 0.9 % SODIUM CHLORIDE 50 ML VIAL IV (21:45)
[2023-12-16] MEDS: IOPAMIDOL-370 (76%);100ML BOTTLE 70 ML IV (21:45)
[2023-12-16 22:01] VITALS: BP 187/76; PULSE 85; O2SAT 94
[2023-12-16 22:35] VITALS: BP 158/68; PULSE 75; O2SAT 96
--- NOTE | 2023-12-16 22:44 | PC.NURSE ---
rounded on pt at this time, pt given bottle of water
[2023-12-16 23:00] VITALS: BP 135/78; PULSE 76; O2SAT 95
--- NOTE | 2023-12-16 23:24 | PC.NURSE ---
Adenike from lab drawing 2nd trop at this time
[2023-12-16 23:30] VITALS: BP 133/76; PULSE 75; O2SAT 93
[2023-12-17] VITALS: BP 146/69; PULSE 98; O2SAT 94
--- NOTE | 2023-12-17 00:03 | PC.NURSE ---
per Adenike in lab, 2nd trop should be ready in 6 mins
[2023-12-17 00:09] LABS: Troponin I 0.08 ng/ml (0.00-0.034)
[2023-12-17] MEDS: METHOCARBAMOL 500MG TABLET 1000 MG PO (00:29)
[2023-12-17 00:41] VITALS: BP 146/69; PULSE 88; RESP 20; TEMP 36.4; O2SAT 92
== END 2023-12-17 00:42 | disposition home or self-care (01) ==
PROVIDERS: Emergency Medicine; Emergency Provider Emergency Medicine; PCP Internal Medicine
DX: M25.511 Pain in right shoulder (principal); M25.411 Effusion, right shoulder; I49.3 Ventricular premature depolarization; I12.9 Hypertensive chronic kidney disease with stage 1 through stage 4 chronic kidney disease, or unspecified chronic kidney disease; E78.5 Hyperlipidemia, unspecified; N18.9 Chronic kidney disease, unspecified
CPT/HCPCS: 36415; 71275; 73030; 73201; 80053; 84484; 85025; 85651; 93005; 96374; 96375; 99285; J0131; Q9967

== ENCOUNTER 2024-01-18 14:52 | Outpatient (RCR) | payer MEDICARE, SELFPAY ==
--- NOTE | 2024-01-18 16:04 | HMH.PTOPEV ---
PT Outpatient Evaluation Rehab PT Outpatient Evaluation Start: 01/18/24 15:01 Freq: Status: Active Protocol: Document 01/18/24 15:01 PDESEROUX (Rec: 01/18/24 16:03 PDESEROUX [id number]) E-signed By Nima Paz, PT Outpatient Therapy Subjective History Subjective History Pt. is a 88 year old male who presents to [facility] Outpatient Physical Therapy Services in [place] for the initial evaluation this date(01/18/24) w/ c/o subacute and intermittnet RUE shldr and LLE hip P!, decreased endurance, and muscle weakness of insidious onset that has progressively been getting worse since 1 month ago. Pt. reports, I sit in my recliner for most of the day because that's where it doesn't hurt. Pt. reports having an increase in LLE hip P! w/ ambulation and getting up and down. Pt. reports requiring his rollator w/ ADLs otherwise I can't get around. Pt. also c/o intermittent LLE numbness. See chart for current list of medications. PMH includes S/P L-spine fusion, S/P B/L TKA, Coronary Artery Bypass Surgeries x 4, Appendectomy, hernia repair, CTS. New diagnosis of cancer in past 12 No months? Chief Complaint Pain,Stiff,Gives out/Unstable, Paresthesia,Weakness Symptom Type Ache,Sharp,Stabbing Symptoms Relieved By Rest/Positioning Symptoms Aggravated By Supine,Standing,Physical Activity,Walking Prior Functional Limitations None Current Functional Limitations Standing,Walking,Stairs Symptom Description Activity Dependent Level of pain today (0-10) 0 Pain scale - at its best (0-10) 0 Pain scale - at its worst (0-10) 7 Hip/Knee Eval Gait Observation General Gait Pattern Observation Antalgic Gait,Decrease Weight Bear (L),Decrease Stride Lngth (R) Assistive Device Assistive Devices Rolling / Wheeled Walker Palpation Tenderness left Knee Palpation Overall Comment L greater trochanter, piriformis mm. Hip Palpation Findings Tenderness,Trigger Point MMT bilateral Hip Flexion Strength Grade 4- Good- Hip Abduction Strength Grade 4- Good- Hip Adduction Strength Grade 4- Good- Hip Extension Strength Grade 4- Good- Gluteus Guerrero Strength Grade 4- Good- Hip External Rotation Strength Grade 4- Good- Hip Internal Rotation Strength Grade 4- Good- Knee Extension Strength Grade 4- Good- Knee Flexion Strength Grade 4- Good- Hip Extensors Muscle Tone Description Severe Hypertonicity Hip Flexors Muscle Tone Description Severe Hypertonicity Outpatient Therapy Assessment Impairments Problems/Impairmments Palpation Tenderness,Impaired Range of Motion,Impaired Strength,Impaired Endurance, Impaired Transfers,Impaired Gait Pattern,Impaired Walking, Impaired Standing,Impaired Household Care,Impaired Squatting,Subjective C/O Pain, Impaired Self Care/Self Management Prognosis Rehab Potential Good Comment w/ HEP compliancy Clinical Impression Consistent with Diagnosis Yes Consistent with generalized weakness, OA, strength Short Term Goals Number of Weeks 2 Improve Self Care/Self Management Yes Usp Goals Number of Weeks 4-6 Increase Strength Yes: 4+ to 5/5 BLE MMT scores grossly Improve Transfers Yes Improve Gait Pattern without Assistive Yes Device Increase Ability to Walk Yes Increase Ability to Stand Yes Improve Incline Stepping Ability Yes: Pt. will be able to negotiate ramp to enter/exit house using AD w/o difficu Improve LEFI Score Yes Improve Self Care/Self Management Yes Patient to be Ind w/ Advanced HEP Yes Outpatient Therapy Plan of Care Treatment Plan May Include Therapeutic Exercise Including Home Yes Exercise Program Manual Therapy Techniques Yes Neuromuscular Re-education Yes Therapeutic Activities to Return to Yes Previous Functional/Work Level Gait Training Yes ADL/Self Care Education Yes Thermal Modalities Yes Electrical Stimulation Yes Ultrasound/Phonophoresis Yes Iontophoresis Yes Vasopneumatic Compression Pump Yes Massage Yes Eval/Re-Eval Yes Frequency Times per week 2 Duration Number of Weeks 4-6 Addendums This patient is a candidate for social No or vocational rehab? Patient/Guardian verbally acknowledges Yes understanding of treatment program and consents to further treatment? Patient/Guardian verbally acknowledges Yes understanding of diagnosis, prognosis and goals for treatment? Eval Complexity PT Charges 55559 - Low Complexity Shoulder/Elbow Eval Shoulder Objective Measurements Elbow Objective Measurements PHYSICIAN CERTIFICATION: I certify the specified therapy services for Douglas Hughes are required, authorized, and reviewed every 30 days.
== END 2024-02-13 17:55 | disposition home or self-care (01) ==
LOC: PT 14:52
PROVIDERS: Visit Provider Internal Medicine
DX: R53.1 Weakness (principal)
CPT/HCPCS: 97110; 97163

== ENCOUNTER 2024-01-30 10:56 | Outpatient (CLI) | payer MEDICARE, SELFPAY ==
--- NOTE | 2024-01-30 10:59 | FL_ITS ---
FINAL REPORT CLINICAL HISTORY: 2.49 min 43.89 mGy FINDINGS: MODIFIED BARIUM SWALLOW History: Dysphagia FINDINGS: Fluoroscopy was provided for the speech pathologist to evaluate the swallowing mechanism. The patient was given several different consistencies of barium while the swallow was visualized fluoroscopically. The report of the speech pathologist should be consulted prior to making dietary decisions. Fluoroscopy time: 2.49 minutes Radiation exposure in Reference air Kerma: 43.89 mGy IMPRESSION: Modified barium swallow under fluoroscopic guidance. Please see the report of the speech pathologist for Dietary recommendations. Films reviewed , interpreted and dictated by Dr. Canales Transcribed by Luis Whelan PA-C. Reviewed, Interpreted and Dictated by Chilango Canales III, MD Transcribed by BASIA Wahl Authenticated and [facility]
--- NOTE | 2024-01-30 11:56 | HMH.SLMBS2 ---
Speech & Language Evaluation Speech/Language Mod Barium Swallow Start: 01/30/24 11:41 Freq: once Status: Complete Protocol: Document 01/30/24 11:41 SRAVANI (Rec: 01/30/24 11:56 [facility] [id number]) General Information General Current Food Consistancy Regular,Thin Liquids Dentition Good Dentition Oxygen Status Room Air Patient Orientation Person,Place,Time,Situation Ability to Follow Directions Good Communication Ability No Impairment MBS Recommendations Diet Dietary Recommendations Regular,Thin Liquids Treatment/Strategies Treatment Recommendation Compens. Strategy Educat. Strategy/Precaution Recommend Sitting Upright (90 deg), Double Swallow,No Straw,Small Bites and Sips,Alternate Liquids/Solids Referrals/Other Recommended Referrals GI Consult Other Recommendations GI consult 2' complaints of globus sensation Mod Barium Swallow Impressions Summary and Impressions Oral Phase Impression Mild Impairment Oral Phase Summary Mild impairment of the oral preparatory and oral transit phases of the swallow 2' increased latency time with mastication of solids, oral residual present after initial swallow and decreased tongue ROM. Pharyngeal Phase Impression Moderate Impairment Pharyngeal Phase Summary Mild to oderate impairment of the pharyngeal phase of the swallow. Diffuse residuals across the pharynx was noted when presented with a straw sip of thin liquids, gabriele residuals noted in vallecular space with consecutive sips of a thin liquid. Pt performed better when presented with smaller sips and no straw. Premature spillage and A/P spills noted when presented with solids causing gabriele residual in vallecular space. Residuals also observed on BOT and pyriform sinus. They were cleared with a secondary swallow. Education provided to both patient and son regarding compensatory strategies, aspiration precautions, and GI consult referrall. They expressed understanding. No aspiration noted, however, trace penetration seen with barium tablet. Speech/Language MBS Assessment/Goals/Plan Assessment Date of Evaluation: 01/30/24 Evaluation Type Initial Certification Assessment/Problems difficulty swallowing/ aspiration concerns per MD order. Does Patient Qualify for Service No Qualify/Failure Comment With implementation of compensatory strategies and compliance with aspiration precautions no further skilled speech therapy services are warranted at this time. Pt would benefit from GI consult to further asseess globus sensation concerns. Recommendations PHYSICIAN CERTIFICATION: The specified therapy services are required, authorized, and reviewed every 30 days. Diet Recommendations Normal Liquid Type Recommendations Normal/Thin SL Swallow Guidelines Alt bite w/sip thru meal, Standard Aspiration Prec.,Eat at slow rate,Reflux precautions Dysphagia Swallow Precautions/Strategies Sitting Upright (90 deg), Double Swallow,No Straw,Small Bites and Sips,Alternate Liquids/Solids Plan Pt/Guardian verbally ack understanding Yes of dx/prognosis/goals G -code Required No Education Instructions provided Discussed compensatory strategies, aspiration precautions, and GI consult referrall with pt and son both of which expressed understanding. Pt/Caregiver able to recall information Able to recall/restate Reinforcement needed No Mod Barium Swallow Setup Exam Setup Radiologist Chilango Canales Level of Consciousness Awake,Alert,Appropriate, Follows Commands Mod Barium Swallow-Lat View Textures Lateral View Food Presentation Thin Liquid via Cup,Thin Liquid via Straw,Pureed Food- Thin,Mech. Soft Food- Regular, Barium Tablet,Regular Food, Pudding Oral Phase Labial Closure No Impairment (WFL) Bolus Formation Pooling L/R No Impairment (WFL) Bolus Formation Scattered Loss Minimal Impairment Mastication Rotary Chew Mild Impairment Mastication Munching Mild Impairment Mastication Lateralization Mild Impairment Lingual Movement Mild Impairment Residue Clearing Mild Impairment Pharyngeal Phase A/P Lingual Propulsion Spills Moderate Impairment Swallow Response Delay Moderate Impairment Base of Tongue Mild Impairment Epiglottic Coverage Mild Impairment Laryngeal Elevation Mild Impairment Vallecular Retention Clearing Moderate Impairment Pharyn. Wall Residue Clearing Minimal Impairment Piriform Sinus Retention Minimal Impairment Aspiration? No Silent aspiration? No Mod Barium Swallow-AP View Performed Mod Barium Swallow A/P View Test Not Applicable/Performed PHYSICIAN CERTIFICATION: I certify the specified therapy services for Douglas Hughes are required, authorized, and reviewed every 30 days.
== END 2024-01-30 23:59 | disposition home or self-care (01) ==
LOC: RAD 10:56
PROVIDERS: PCP Internal Medicine; Visit Provider Internal Medicine
DX: R13.10 Dysphagia, unspecified (principal)
CPT/HCPCS: 70371; 92611

== ENCOUNTER 2024-02-12 09:54 | Outpatient (POV) | payer MEDICARE, SELFPAY ==
--- NOTE | 2024-02-12 11:21 | EXP.PAIN.OV ---
HPI Data of Consult Patient: new to practice Consult date: 02/12/24 Requesting Physician: Juliann Colunga APRN Primary Care Provider: Oseas Kemp MD Consult Narrative Reason for consult: Low back pain history, left hip pain, left buttocks pain History of present illness: Mr. Hughes is a 88 year old male who presents today as a new patient. He has a referral from Bayron Colunga's office. Today he rates his pain a 9 out of 10. He describes it as a sharp pain sensation that has been going on the last 2 months unrelated to any specific injury or trauma. Patient does state he has a history of low back issues and has had back surgery with rods placed. Patient does state the pain interferes with his ability perform activities of daily living such as cooking or cleaning. He states that it is much worse with any type of pressure and so he is very limited on how he can even sit. Patient states that he has to change positions frequently and has to put more pressure on the right side due to the pain all along the left buttocks and hip area. Patient has tried [id number] medications such as Tylenol along with heat and ice and topicals with minimal relief. Patient states he has had multiple steroid packs with minimal relief. Physical therapy made his pain worse. Patient is interested in any help we may be able to provide. He did recently have a bursa injection at his orthopedic doctor's office however this made no Additional change. He is interested in any help we may be able to provide. He does state he has even tried muscle relaxers. He was recently given tramadol. His Jerome has been reviewed and is appropriate. CC: Juliann Colunga APRN [facility] Disclaimer: The information contained in this section may have been updated after the patient was seen, as this information can be updated by other users. Social History Smoking Status: Unknown if ever smoked alcohol intake: never current occupational status: retired Travel in the last 8 weeks: None Review of Systems Review of Systems Review of systems:: pertinent systems reviewed and negative unless documented below Review of systems (narrative): Review of Systems: General: No recent weight changes, no fever, no sleep disturbances Respiratory: No cough, no shortness of air, no recurring pulmonary infections Cardiovascular/peripheral vascular: No chest pain, no palpitations, no edema, no shortness of breath Gastrointestinal: No new onset incontinence, normal bowel movements reported Genitourinary: No new onset incontinence Musculoskeletal: Left buttocks pain, left hip pain Psychiatric: [Normal mood/affect] Neurological: [Denies weakness in extremities], [denies balance issues] Meds Home Medications and Allergies Home Medications Medication Instructions Recorded Confirmed Type aspirin 81 mg tablet,delayed 81 mg PO DAILY 11/27/18 01/25/24 History release (Adult Low Dose Aspirin) atorvastatin 40 mg tablet 40 mg PO DAILY 11/27/18 01/25/24 History doxazosin 2 mg tablet 2 mg PO DAILY 11/27/18 01/25/24 History esomeprazole magnesium 40 mg 40 mg PO DAILY 11/27/18 01/25/24 History capsule,delayed release finasteride 5 mg tablet 5 mg PO DAILY 11/27/18 01/25/24 History hydrochlorothiazide 25 mg tablet 25 mg PO DAILY 11/27/18 01/25/24 History lisinopril 20 mg tablet 20 mg PO DAILY 11/27/18 01/25/24 History metoprolol tartrate 100 mg tablet 100 mg PO BID 11/27/18 01/25/24 History methocarbamol 500 mg tablet 1,000 mg (2 x 500 mg) PO Q8H PRN 12/17/23 01/25/24 Rx muscle spasm #30 tabs methylprednisolone 4 mg tablets in See Rx Instructions PO PER PKG DIR 01/25/24 01/25/24 Rx a dose pack (Medrol (Dusty)) #21 tabs methylprednisolone 4 mg tablets in See Rx Instructions PO PER PKG DIR 01/25/24 01/25/24 Rx a dose pack (Medrol (Dusty)) #21 tabs New Prescriptions to Start Prescriptions: Allergies Allergy/AdvReac Type Severity Reaction Status Date / Time No Known Allergies Allergy Verified 01/25/24 13:43 Objective Narrative: Physical Exam: General: Alert and oriented x3, no acute distress, pleasant and cooperative Lungs: Respirations even and unlabored, symmetrical chest expansion Eyes: PERRL Musculoskeletal: Flexion and extension of lumbar [spine] somewhat guarded secondary to pain, [antalgic gait noted] point tenderness along left piriformis muscle Neurological: Speech clear, no gross sensory deficit Assessment and Plan *Assessment and plan (1) Low back pain: Status: Acute Qualifiers: Chronicity: chronic Back pain laterality: left Sciatica presence: without sciatica Qualified Code(s): M54.50 - Low back pain, unspecified; G89.29 - Other chronic pain Category: Medical Code(s): M54.50 - Low back pain, unspecified (2) Left buttock pain: Status: Acute Category: Medical Code(s): M79.18 - Myalgia, other site (3) Left hip pain: Status: Acute Category: Medical Code(s): M25.552 - Pain in left hip Plan Patient is experiencing significant pain in and around his low back, left hip and left buttocks. Patient did have limited range of motion of his lumbar spine and point tenderness along the left piriformis muscle. I have discussed with patient that he may benefit from a left piriformis injection. Risk and benefits were discussed with the patient and he would like to proceed forward with this option. I will also order the patient compounded cream. Patient has not had any updated imaging for his low back or hip. I will order x-ray of his lumbar spine, left hip and left SI joint as well as advanced imaging without contrast of his hip and lumbar spine. Patient will be scheduled for a left piriformis muscle injection. I will also send in 2-week dose of baclofen 10 mg 3 times daily. Patient has been instructed to contact the clinic with any concerns before the next appointment. Dr. Chavez has reviewed this note and agrees with this plan of care. This note was dictated using voice recognition software and make contain errors or omissions.
[2024-02-12 12:36] VITALS: BP 140/65; PULSE 80; RESP 18; O2SAT 95; BMI 32.1
== END 2024-02-12 23:59 | disposition home or self-care (01) ==
PROVIDERS: PCP Internal Medicine; Visit Provider Nurse Practitioner Family
DX: M54.50 Low back pain, unspecified (principal); G89.29 Other chronic pain; M79.18 Myalgia, other site; M25.552 Pain in left hip
CPT/HCPCS: 99202; G0463

== ENCOUNTER 2024-02-12 11:13 | Outpatient (CLI) | payer MEDICARE, SELFPAY ==
--- NOTE | 2024-02-12 11:17 | XR_ITS ---
FINAL REPORT CLINICAL HISTORY: LOW BACK PAIN,LT HIP PAIN FINDINGS: LEFT HIP 2 views were obtained. There is no acute fracture or dislocation. Patient is status post interbody fusion at L3-4 and L4-5. There are advanced degenerative changes at L5-S1. There is a sclerotic focus in the right iliac wing measuring 1.8 x 1.2 cm which is indeterminate but stable from prior exam. Visualized joint spaces are normally aligned. Soft tissues are unremarkable. IMPRESSION: No acute bony abnormality. Reviewed, Interpreted and Dictated by Jassi Chaudhry MD Transcribed by Fatou Yoder Authenticated and [facility]
--- NOTE | 2024-02-12 11:17 | XR_ITS ---
FINAL REPORT CLINICAL HISTORY: LOW BACK PAIN,LT HIP PAIN FINDINGS: LUMBAR SPINE 5 views were obtained. There is no acute fracture. There is posterior fusion hardware bridging L3-4 and L4-5. There is moderate vacuum disc phenomenon at L5-S1. There is minimal spondylolisthesis of L4 on L5 which is probably degenerative. There is no malalignment. There is no soft tissue abnormality. IMPRESSION: Postoperative and degenerative changes with no acute bony abnormality. Reviewed, Interpreted and Dictated by Jassi Chaudhry MD Transcribed by Aria Schultz Authenticated and [facility][1]
--- NOTE | 2024-02-12 11:17 | XR_ITS ---
FINAL REPORT CLINICAL HISTORY: LOW BACK PAIN,LT HIP PAIN COMPARISON: CT performed November 2021 FINDINGS: SI JOINTS 3 views were obtained. There is no acute fracture or dislocation. Patient is status post interbody fusion at L3-4 and L4-5. There are advanced degenerative changes at L5-S1. There is a sclerotic focus in the right iliac wing measuring 1.8 x 1.2 cm which is indeterminate but stable from prior exam. Visualized joint spaces are normally aligned. Soft tissues are unremarkable. IMPRESSION: No acute bony abnormality. Reviewed, Interpreted and Dictated by Jassi Chaudhry MD Transcribed by Fatou Yoder Authenticated and [facility]
== END 2024-02-12 23:59 | disposition home or self-care (01) ==
LOC: RAD 11:14
PROVIDERS: PCP Internal Medicine; Visit Provider Anesthesiology
DX: M54.50 Low back pain, unspecified (principal); G89.29 Other chronic pain; M79.18 Myalgia, other site; M25.552 Pain in left hip
CPT/HCPCS: 72110; 72202; 73502; 99202; G0463

== ENCOUNTER 2024-02-27 11:47 | Day surgery (SDC) | payer MEDICARE, SELFPAY ==
--- OUTSIDE RECORDS SUMMARY | 2024-02-27 11:50 | XMS_ITS ---
Author Name Unknown Organization Unknown ALLERGIES AND ADVERSE REACTIONS No information ASSESSMENT No information CHIEF COMPLAINT No information MEDICATIONS No information OBJECTIVE DATA No information PHYSICAL EXAMINATION No information TREATMENT PLAN Planned Care Start Date Provider Encounter for Check-up [id number] [facility] PROBLEMS No information RESULTS No information REVIEW OF SYSTEMS No information SUBJECTIVE DATA No information VITAL SIGNS No information
[2024-02-27 12:02] VITALS: BP 134/58; PULSE 80; RESP 20; TEMP 36.7; O2SAT 95; BMI 32.1
[2024-02-27] MEDS: BUPIVACAINE 0.25% 10ML INJ 25 MG IJ (12:03)
[2024-02-27] MEDS: methylPREDNISolone ACETATE 80MG/ML VIAL 80 MG (12:04)
[2024-02-27] MEDS: LIDOCAINE 1% 5ML PF VIAL 5 ML (12:04)
--- NOTE | 2024-02-27 12:09 | EXP.PAIN.PRO ---
Procedure Date: 02/27/24 Time: 12:00 Anesthesiologist:: Nima Benz CRNA Complications:: None Pre-procedure Diagnosis:: Left buttock pain. 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 Post-procedure Diagnosis:: Same. Indications for Procedure:: Patient is a 88-year-old male that comes our clinic today for a left piriformis injection. However, patient presents in a wheelchair and is unable to access the fluoroscopy table. I discussed in detail with the patient regarding the injection. He agrees to me giving him the shot without fluoroscopy guidance. Patient has a left low lumbar back pain. Left buttock pain. Left lateral calf pain. He describes these areas as constant, dull, aching. He reports sitting in his recliner does help with the pain. However, ambulation is out of the question due to the pain. Procedure Details:: Details of the procedure explained to the patient. The patient to procedure room placed in the standing position leaning over the fluoroscopy table. The left buttock was cleaned using chlorhexidine as a cleansing solution. Using a 22-gauge 3 and half inch spinal needle the inferior margin of the sacroiliac joint was palpated and the needle was inserted at this level. After the needle came into contact with bone it was gently walked off inferiorly. After negative aspiration 6 cc of a solution containing 60 cc of 1% lidocaine and 40 mg of Depo-Medrol. The needle was removed. Band-Aid applied. Patient tolerated procedure without difficulty. There are no complications. Plan and Disposition:: Patient was discharged without incident.
[2024-02-27 12:11] VITALS: BP 129/85; PULSE 107; RESP 20; O2SAT 95
== END 2024-02-27 12:12 | disposition home or self-care (01) ==
PROVIDERS: PCP Internal Medicine; Visit Provider Nurse Anesthetist, Certified Registered
DX: M79.18 Myalgia, other site (principal)
CPT/HCPCS: 20552; J1010

== ENCOUNTER 2024-02-29 10:53 | Outpatient (CLI) | payer MEDICARE, SELFPAY ==
--- NOTE | 2024-02-29 10:56 | MR_ITS ---
FINAL REPORT CLINICAL HISTORY: HIP PAIN LEFT FINDINGS: Multiplanar MR imaging of the left hip was performed without contrast. There are mild degenerative changes. There is no evidence of fracture or dislocation. There is no evidence of avascular necrosis. No bony mass is identified. There are bilateral superior labral tears. A paralabral cyst is seen on the right measuring 15 mm. There is a small left hip joint effusion. No significant right hip joint effusion is seen. There is a chronic partial tear of the distal left gluteus minimus tendon. Small chronic tears are seen at the origin of the left hamstring tendons. The musculature is intact. No soft tissue mass or cyst is identified. IMPRESSION: Bilateral superior labral tears with right paralabral cyst measuring 15 mm. 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 Chronic tear at the origin of the left hamstring tendons. Reviewed, Interpreted and Dictated by Chilango Canales III, MD Transcribed by Fatou Yoder Authenticated and [facility]
--- NOTE | 2024-02-29 10:56 | MR_ITS ---
FINAL REPORT CLINICAL HISTORY: LBP FINDINGS: Multiplanar MR imaging of the lumbar spine was performed without contrast. On the sagittal T2-weighted images, disc degeneration is seen throughout. There is mild retrolisthesis of L2 on L3. Endplate changes are seen at multiple levels. There are postoperative changes of fusion from L3-L5. There is no evidence of fracture. No bony mass is identified. The conus is seen at approximately the L1 level and has an unremarkable appearance. L1-2: Annular disc bulge with facet arthropathy and osteophytes. There is severe bilateral neuroforaminal narrowing. L2-3: Annular disc bulge with facet arthropathy and osteophytes. There is severe bilateral neuroforaminal narrowing. L2 laminectomies are noted. L3-4: Postoperative changes of fusion with L3 laminectomies. There is mild left neuroforaminal narrowing. L4-5: Postoperative changes of fusion and L4 laminectomies. There is severe bilateral neuroforaminal narrowing. L5-S1: Annular disc bulge with facet arthropathy and osteophytes. There is a central superiorly extruded disc which contacts the S1 nerve root. There is severe bilateral neuroforaminal narrowing. IMPRESSION: Multilevel postoperative and degenerative changes with central superiorly extruded disc at L5-S1 which contacts the S1 nerve root with severe bilateral neuroforaminal narrowing at this level. Reviewed, Interpreted and Dictated by Chilango Canales III, MD Transcribed by Fatou Yoder Authenticated and [facility]
== END 2024-02-29 23:59 | disposition home or self-care (01) ==
LOC: RAD 10:53
PROVIDERS: PCP Internal Medicine; Visit Provider Nurse Practitioner Family
DX: M25.552 Pain in left hip (principal); M54.50 Low back pain, unspecified
CPT/HCPCS: 72148; 73721

== ENCOUNTER 2024-03-18 10:25 | Outpatient (POV) | payer MEDICARE, SELFPAY ==
[2024-03-18 10:34] VITALS: BP 125/78; PULSE 71; RESP 18; TEMP 36.8; O2SAT 98; BMI 32.1
--- NOTE | 2024-03-18 10:54 | EXP.PAIN.SOA ---
[facility] Pain Management SOAP Note Subjective:: Patient is a pleasant 88-year-old male who presents today for follow-up left piriformis injection on 02/27/2024. Today he rates his pain a 3 out of 10 however states his pain will get much worse when he gets up and walks. He states he continues to have significant weakness all along his left leg. Patient states the pain is unbearable even for the simplest activity. He states he gets up and walks to the bathroom By the time he gets back he is in excruciating pain. Patient is here for imaging follow-up of his left hip and lumbar spine. Patient does state that he is on a fluid pill however he only takes this from time to time. Patient does have significant complaints on his lower left calf. He does state interferes with his ability perform activities of daily living such as cooking and cleaning. Patient is interested in manage healthy negative for provide. Patient states he is not interested in surgery. He has continued at home exercise and stretching with no additional change. His Jerome has been reviewed and is appropriate. Review of Systems: General: No recent weight changes, no fever, no sleep disturbances Respiratory: No cough, no shortness of air, no recurring pulmonary infections Cardiovascular/peripheral vascular: No chest pain, no palpitations, no edema, no shortness of breath Gastrointestinal: No new onset incontinence, normal bowel movements reported Genitourinary: No new onset incontinence Musculoskeletal: Low back pain, left leg pain Psychiatric: [Normal mood/affect] Neurological: [Denies weakness in extremities], [denies balance issues] Objective:: Physical Exam: General: Alert and oriented x3, no acute distress, pleasant and cooperative Lungs: Respirations even and unlabored, symmetrical chest expansion Eyes: PERRL Musculoskeletal: Flexion and extension of lumbar [spine] somewhat guarded secondary to pain, [antalgic gait noted] positive left leg raise with decreased sensation to light touch and decreased reflexes Neurological: Speech clear, no gross sensory deficit Skin: Bilateral lower extremities have pitting edema 2+ Assessment:: Degenerative disc disease of lumbar spine with lumbar radiculopathy symptoms, lumbar spinal stenosis, lumbar postlaminectomy syndrome, left buttocks pain, left hip pain Plan:: I did review over the MRI findings of his left hip and lumbar spine. Patient did have limited range of motion of his lumbar spine with a positive left leg raise and decreased sensation to light touch and decreased reflexes. Patient did also have 2+ pitting edema in his bilateral lower extremities during today's exam. Patient was counseled due to his worsening pain with weakness and numbness down his entire left extremity that he may benefit from a left transforaminal epidural steroid injection. Risk and benefits were discussed with patient and he would like to proceed forward with this plan of care. Patient is not on any blood thinners. Patient has tried and failed conservative therapies with continued at home exercising and stretching between injections. I did discuss with the patient that I can always send him over to orthopedics for he has chronic tears noted around his left hip or neurosurgery for his chronic degenerative disc with multilevel severe neuroforaminal narrowing. Patient and his sons are not interested in surgical intervention. I did veterans rehabilitation counselor the patient with the extent of edema in his legs that I do recommend that he follow-up with primary care and take his fluid pill daily and that it may still need additional adjustment by his PCP. Patient was also counseled to elevate his legs above the level of his heart as frequently as possible and that compression socks may be helpful in addition. Patient and family acknowledge understanding. Will send in a 2-week dose of [place] 5 mg twice daily. Patient will be scheduled for a left transforaminal epidural steroid injection L4-L5 and L5-S1. Risks and benefits of the medication have been explained in detail to the patient. The patient does understand the risk of dependence on the medication when given over a prolonged period. Patient has been advised of risks of oversedation with the prescribed medication. Narcan has been offered to the paitent in the event of oversedation. Patient has been advised that a family member should also be educated regarding administration of Narcan. The patient has been advised to consult with his/her primary care provider and pharmacist regarding drug-drug interaction of medications currently prescribed. Patient has been prescribed a controlled substance after being counseled on the medication, medication safety, and possible side effects. Opioid contract was reviewed and signed by the patient, and that they have agreed to all of the terms set forth by our compliance program. Patient has been instructed to contact the clinic with any concerns before the next appointment. Dr. Chavez has reviewed this note and agrees with this plan of care. This note was dictated using voice recognition software and make contain errors or omissions. [facility] Disclaimer: The information contained in this section may have been updated after the patient was seen, as this information can be updated by other users. Medical History Thrombocytopenia Kidney failure Primary osteoarthritis, right shoulder Primary generalized (osteo)arthritis Constipation Atherosclerotic heart disease of [place] coronary artery without angina pectoris HTN (hypertension) GERD (gastroesophageal reflux disease) HLD (hyperlipidemia) Family History Other Unknown family medical history Social History Smoking Status: Unknown if ever smoked alcohol intake: never current occupational status: other Travel in the last 8 weeks: None
== END 2024-03-18 23:59 | disposition home or self-care (01) ==
PROVIDERS: PCP Internal Medicine; Visit Provider Nurse Practitioner Family
DX: M25.552 Pain in left hip (principal); M51.36 Other intervertebral disc degeneration, lumbar region; M54.16 Radiculopathy, lumbar region; M96.1 Postlaminectomy syndrome, not elsewhere classified; M48.061 Spinal stenosis, lumbar region without neurogenic claudication
CPT/HCPCS: 99212; G0463

== ENCOUNTER 2024-03-27 12:52 | Outpatient (CLI) | payer MEDICARE, SELFPAY ==
--- NOTE | 2024-03-27 12:52 | CA_ITS ---
FINAL REPORT TECHNIQUE: Color Doppler, duplex Doppler and compression sonography of the left lower extremity deep venous systems was performed. CLINICAL HISTORY: Pain and swelling left leg x 4 months. Denies trauma, states he walked up and down steps at [employer] November 2023 and had pain in left hip and back since. HTN, HLD. FINDINGS: There is no evidence of deep venous thrombosis from the level of the groin to the calf. The veins are patent and compressible. IMPRESSION: No evidence of deep venous thrombosis left lower extremity. Reviewed, Interpreted and Dictated by Chilango Canales III, MD Transcribed by Aria Schultz Authenticated and [facility]
== END 2024-03-27 23:59 | disposition home or self-care (01) ==
LOC: RT 12:52
PROVIDERS: PCP Internal Medicine; Visit Provider Internal Medicine
DX: M79.605 Pain in left leg (principal)
CPT/HCPCS: 93971

== ENCOUNTER → 2024-04-09 09:47 | Day surgery (SDC) | payer MEDICARE, SELFPAY ==
[2024-04-09 10:13] VITALS: BP 122/61; PULSE 70; RESP 18; TEMP 36.3; O2SAT 95; BMI 32.1
--- NOTE | 2024-04-09 10:42 | A.OFFVIS_ITS ---
[facility] Disclaimer: The information contained in this section may have been updated after the patient was seen, as this information can be updated by other users. Medical History Thrombocytopenia Kidney failure Primary osteoarthritis, right shoulder Primary generalized (osteo)arthritis Constipation Atherosclerotic heart disease of [place] coronary artery without angina pectoris HTN (hypertension) GERD (gastroesophageal reflux disease) HLD (hyperlipidemia) Family History Other Unknown family medical history Social History Smoking Status: Unknown if ever smoked alcohol intake: never substance use type: denies use current occupational status: other Travel in the last 8 weeks: None PM Subjective & Objective Subjective Subjective:: Patient arrives today for transforaminal epidural steroid injection bilateral L4-5, L5-S1 on the left. However, patient refuses to be on the table in a prone position. An alternative would be an intralaminar lumbar epidural steroid injection at the L4-5. This would not require C arm. We will seek approval for interlaminar L4-5 epidural steroid injection. He will return next Monday. Pain at rest (0-10 scale): 10 Objective Has patient had previous pain injection?: No Conservative treatment options previously tried: NSAIDS (Meloxicam) Length of treatment: DC'd due to kidneys and Home exercise plan Length of treatment: 10 Meds Home Medications and Allergies Home Medications Medication Instructions Recorded Confirmed Type aspirin 81 mg tablet,delayed 81 mg PO DAILY 11/27/18 03/26/24 History release (Adult Low Dose Aspirin) doxazosin 2 mg tablet 2 mg PO DAILY 11/27/18 03/26/24 History esomeprazole magnesium 40 mg 40 mg PO DAILY 11/27/18 03/26/24 History capsule,delayed release finasteride 5 mg tablet 5 mg PO DAILY 11/27/18 03/26/24 History lisinopril 20 mg tablet 20 mg PO DAILY 11/27/18 03/26/24 History metoprolol tartrate 100 mg tablet 100 mg PO BID 11/27/18 03/26/24 History methocarbamol 500 mg tablet 1,000 mg (2 x 500 mg) PO Q8H PRN 12/17/23 03/26/24 Rx muscle spasm #30 tabs baclofen 10 mg tablet 10 mg PO TID #42 tabs 02/12/24 03/26/24 Rx carbamazepine 100 mg 100 mg PO DAILY #30 tabs 02/16/24 03/26/24 Rx tablet,extended release,12 hr furosemide 40 mg tablet 40 mg PO Q OTHER DAY #15 tabs 02/16/24 03/26/24 Rx isosorbide dinitrate 30 mg tablet 30 mg PO BID #60 tabs 02/16/24 03/26/24 Rx hydrochlorothiazide 25 mg tablet 25 mg PO DAILY #90 tabs 03/05/24 03/26/24 Rx hydrocodone 5 mg-acetaminophen 325 1 tab PO BID #28 tabs 03/18/24 03/26/24 Rx mg tablet atorvastatin 40 mg tablet 40 mg PO DAILY #90 tabs 03/20/24 03/26/24 Rx zinc oxide 10 %-white petrolatum See Rx Instructions topical BID 03/26/24 03/26/24 Rx 78 % topical cream ([place] #99 grams Moist Barrier-Zinc) hydrocodone 5 mg-acetaminophen 325 1 tab PO BID #60 tabs 04/08/24 Rx mg tablet New Prescriptions to Start Prescriptions: Allergies Allergy/AdvReac Type Severity Reaction Status Date / Time No Known Allergies Allergy Verified 03/26/24 16:41
== END ==
LOC: SC.PAINP 09:49
PROVIDERS: PCP Internal Medicine; Visit Provider Nurse Anesthetist, Certified Registered
DX: M51.16 Intervertebral disc disorders with radiculopathy, lumbar region (principal); M48.062 Spinal stenosis, lumbar region with neurogenic claudication; M96.1 Postlaminectomy syndrome, not elsewhere classified; M25.552 Pain in left hip; Z53.8 Procedure and treatment not carried out for other reasons

== ENCOUNTER 2024-04-16 08:26 | Day surgery (SDC) | payer MEDICARE, SELFPAY ==
[2024-04-16 08:38] VITALS: BP 118/58; PULSE 59; RESP 18; TEMP 36.5; O2SAT 96; BMI 32.1
[2024-04-16] MEDS: methylPREDNISolone ACETATE 80MG/ML VIAL 80 MG (08:51)
--- NOTE | 2024-04-16 08:54 | EXP.PAIN.PRO ---
Procedure Date: 04/16/24 Time: 08:30 Anesthesiologist:: Nima Benz CRNA Complications:: None Pre-procedure Diagnosis:: Degenerative disc lumbar spine multilevels. Lumbar radiculopathy. Lumbar postlaminectomy syndrome. Post-procedure Diagnosis:: Same. Indications for Procedure:: Patient is a pleasant 88-year-old male comes to clinic today for lumbar epidural steroid injection. Patient describes low back pain as constant, dull, aching. He also reports right hip and leg radicular symptoms. He rates his pain 7/10. Procedure Details:: Procedure: Lumbar epidural steroid injection under fluoroscopy Informed consent was obtained and the risks and benefits of the procedure were explained to the patient. The patient was taken to the procedure room and noninvasive monitors placed, including noninvasive blood pressure cuff and pulse oximeter. The back was viewed using C-arm Fluoroscopy and prepped using Chloraprep as a cleansing solution and the L4-L5 interspace was palpated. Skin and subcutaneous tissues were anesthetized using lidocaine 1.5% and a 25-gauge needle. After this, an 18-gauge Touhy epidural needle was placed into the L4-L5 interspace and advanced using fluoroscopic guidance and loss of resistance to air until the epidural space was encountered. After confirmation of needle placement in the epidural space, with dye, a solution containing normal saline, 3 mL and Depo-Medrol 80 mg were incrementally injected into the lumbar epidural space. The patient tolerated the procedure well with no complications. The patient was observed in the Pain Clinic and then discharged home neurologically intact. Plan and Disposition:: Patient was discharged without incident.
[2024-04-16 08:58] VITALS: BP 118/68; PULSE 55; RESP 18; TEMP 36.6; O2SAT 96
== END 2024-04-16 08:53 | disposition home or self-care (01) ==
PROVIDERS: PCP Internal Medicine; Visit Provider Nurse Anesthetist, Certified Registered
DX: M54.16 Radiculopathy, lumbar region (principal)
CPT/HCPCS: 62323; J1010

== ENCOUNTER 2024-04-25 13:22 | Outpatient (POV) | payer MEDICARE, SELFPAY ==
[2024-04-25 14:11] VITALS: BP 105/44; PULSE 74; RESP 18; O2SAT 95; BMI 30.7
--- NOTE | 2024-04-25 14:23 | A.OFFVIS_ITS ---
[facility] Disclaimer: The information contained in this section may have been updated after the patient was seen, as this information can be updated by other users. Medical History Thrombocytopenia Kidney failure Primary osteoarthritis, right shoulder Primary generalized (osteo)arthritis Constipation Atherosclerotic heart disease of [place] coronary artery without angina pectoris HTN (hypertension) GERD (gastroesophageal reflux disease) HLD (hyperlipidemia) Family History Other Unknown family medical history Social History Smoking Status: Unknown if ever smoked alcohol intake: never substance use type: denies use current occupational status: retired Travel in the last 8 weeks: None PM Subjective & Objective Subjective Subjective:: Patient is a pleasant 88-year-old male who presents today for follow-up of lumbar epidural steroid injection L4-L5 on 04/16/2024. Today he rates his pain a 4 out of 10. Patient denies any new trauma or injury. He does state that he has had at least 50 to 60% improvement and feels like it still helping. He states he does still have a little discomfort in his left hip however it is very minimal and that he will have some pain in and around his lower left calf. Patient has been doing stretching exercise at home but is questioning whether or not if he may benefit from physical therapy now that the pain is improved. His Jerome has been reviewed and is appropriate. Review of Systems: General: No recent weight changes, no fever, no sleep disturbances Respiratory: No cough, no shortness of air, no recurring pulmonary infections Cardiovascular/peripheral vascular: No chest pain, no palpitations, no edema, no shortness of breath Gastrointestinal: No new onset incontinence, normal bowel movements reported Genitourinary: No new onset incontinence Musculoskeletal: Low back pain, leg pain Psychiatric: [Normal mood/affect] Neurological: [Denies weakness in extremities], [denies balance issues] Pain at rest (0-10 scale): 4 Objective Objective:: Physical Exam: General: Alert and oriented x3, no acute distress, pleasant and cooperative Lungs: Respirations even and unlabored, symmetrical chest expansion Eyes: PERRL Musculoskeletal: Flexion and extension of lumbar [spine] somewhat guarded seco ndary to pain, [antalgic gait noted] Neurological: Speech clear, no gross sensory deficit Has patient had previous pain injection?: Yes Percent improvement in pain since last injection: 50 to 60% Conservative treatment options previously tried: Home exercise plan Length of treatment: Longer than 6 weeks Meds Home Medications and Allergies Home Medications ?Medication ?Instructions ?Recorded ?Confirmed ?Type aspirin 81 mg tablet,delayed 81 mg PO DAILY 11/27/18 04/25/24 History release (Adult Low Dose Aspirin) doxazosin 2 mg tablet 2 mg PO DAILY 11/27/18 04/25/24 History finasteride 5 mg tablet 5 mg PO DAILY 11/27/18 04/25/24 History metoprolol tartrate 100 mg tablet 100 mg PO BID 11/27/18 04/25/24 History methocarbamol 500 mg tablet 1,000 mg (2 x 500 mg) PO Q8H PRN 12/17/23 04/25/24 Rx muscle spasm #30 tabs baclofen 10 mg tablet 10 mg PO TID #42 tabs 02/12/24 04/25/24 Rx carbamazepine 100 mg 100 mg PO DAILY #30 tabs 02/16/24 04/25/24 Rx tablet,extended release,12 hr furosemide 40 mg tablet 40 mg PO Q OTHER DAY #15 tabs 02/16/24 04/25/24 Rx hydrochlorothiazide 25 mg tablet 25 mg PO DAILY #90 tabs 03/05/24 04/25/24 Rx atorvastatin 40 mg tablet 40 mg PO DAILY #90 tabs 03/20/24 04/25/24 Rx zinc oxide 10 %-white petrolatum See Rx Instructions topical BID 03/26/24 04/25/24 Rx 78 % topical cream ([place] #99 grams Moist Barrier-Zinc) hydrocodone 5 mg-acetaminophen 325 1 tab PO BID #60 tabs 04/08/24 04/25/24 Rx mg tablet esomeprazole magnesium 40 mg See Rx Instructions .Route 04/15/24 04/25/24 Rx capsule,delayed release .COMPLEX #90 caps lisinopril 20 mg tablet See Rx Instructions .Route 04/15/24 04/25/24 Rx .COMPLEX #90 tabs isosorbide dinitrate 30 mg tablet 30 mg PO BID #60 tabs 04/18/24 04/25/24 Rx cyanocobalamin (vitamin B-12) 1,000 mcg PO DAILY #100 caps 04/19/24 04/25/24 Rx 1,000 mcg capsule polyethylene glycol 3350 17 17 g PO DAILY #510 grams 04/19/24 04/25/24 Rx gram/dose oral powder New Prescriptions to Start Prescriptions: Allergies Allergy/AdvReac Type Severity Reaction Status Date / Time No Known Allergies Allergy Verified 03/26/24 16:41 Assessment and Plan *Assessment and plan (1) Low back pain: Status: Acute Qualifiers: Chronicity: chronic Back pain laterality: left Sciatica presence: without sciatica Qualified Code(s): M54.50 - Low back pain, unspecified; G89.29 - Other chronic pain Category: Medical Code(s): M54.50 - Low back pain, unspecified (2) Lumbar radicular pain: Status: Acute Category: Medical Code(s): M54.16 - Radiculopathy, lumbar region Plan Patient has had significant improvement following his lumbar epidural and does not require any additional injection therapy at this time. I have discussed with the patient that I will order in physical therapy and we will have him follow back up in 1 month for reevaluation of symptoms and plan of care. Patient has been instructed to contact the clinic with any concerns before the next appointment. Dr. Chavez has reviewed this note and agrees with this plan of care. This note was dictated using voice recognition software and make contain errors or omissions. All injections are used with Lidocaine or Bupivacaine and Depo Medrol.
== END 2024-04-25 23:59 | disposition home or self-care (01) ==
LOC: SC.PAIN 13:23
PROVIDERS: PCP Internal Medicine; Visit Provider Nurse Practitioner Family
DX: M54.50 Low back pain, unspecified (principal); G89.29 Other chronic pain; M54.16 Radiculopathy, lumbar region
CPT/HCPCS: 62368; 99212; G0463

== ENCOUNTER 2024-06-11 13:00 | Outpatient (RCR) | payer MEDICARE, SELFPAY ==
--- NOTE | 2024-05-07 13:59 | HMH.PTOPEV ---
PT Outpatient Evaluation Rehab PT Outpatient Evaluation Start: 05/07/24 12:53 Freq: Status: Active Protocol: Document 05/07/24 12:53 PDESEROUX (Rec: 05/07/24 13:58 PDESEROUX Desktop) E-signed By Nima Paz, PT Outpatient Therapy Subjective History Subjective History Pt. is a 88 year old male who presents to [facility] Outpatient Physical Therapy Services in [place] for the initial evaluation this date( 05/07/24) w/ c/o chronic and intermittent lumbar and LLE P! , weakness, and numbness of insidious since the end of November. Pt. reports having one treatment of Physical Therapy previously for symptom complaint, however, vocalizes made his symptoms worse. Therefore, pt. reports being instructed by MD to discontinue Physical Therapy and receive a consult w/ the Pain Management Clinic. Pt. reports he's been having some symptom relief w/ most recent injection coupled w/ previous exercises he was given. Pt. reports nothing is broke after previous diagnostic imaging. Pt. RTMD 06/05/24. Pt . reports having a functional decline since symptom onset. Pt. reports he is unable to ambulate for longer distances secondary to getting short of breathe and too weak. Pt. reports he doesn't cook himself supper anymore secondary to not being able to stand on his feet for a prolonged period of time. Pt. reports fear of falling in the middle of the night secondary to weakness because he lives alone. Pt. reports his son assists pt. w/ ADLs daily. Current medication list includes Lisinopril, Aspirin, Atorvastatin, Metoprolol, Doxazosin, Finasteride, Esomeprazole. PMH includes S/P L-spine fusion, S/P B/L TKA, Coronary Artery Bypass Surgeries x 4, Appendectomy, hernia repair, CTS. New diagnosis of cancer in past 12 No months? Chief Complaint Pain,Swelling,Gives out/ Unstable,Paresthesia,Decreased Coordination Symptom Type Ache,Throb,Sharp,Stabbing, Shooting Symptoms Relieved By Rest/Positioning,Ice, Prescription Meds Symptoms Aggravated By Standing,Bending/Stooping, Physical Activity,Walking, Lifting Prior Functional Limitations None Current Functional Limitations Housework,Desk Work/Reading, Driving,Standing,Recreation Activity,Walking,Balance, Bending/Stooping Symptom Description Constant but Variable,Activity Dependent Level of pain today (0-10) 0 Pain scale - at its best (0-10) 0 Pain scale - at its worst (0-10) 9 Lumbopelvic Eval Posture Thoracic Spine Posture Standing Position Increased Kyphosis Lumbar Spine Posture Standing Position Fixed Scoliosis on (L),Flexed Assistive device Assistive Devices Rolling / Wheeled Walker Gait Observation General Gait Pattern Observation Antalgic Gait,Decrease Weight Bear (L),Decrease Stride Lngth (R) Palapation tenderness left lumbar spinal tenderness Yes: L4-S1 buttock tenderness Yes: piriformis/glute med mms. Lumbar/Sacral Palpation Findings Tenderness,Spasm Lumbar/Sacral Palpation Overall Comment grade 4 +TTP to TTP assessment above Accessory Movement L-spine Vertebrae Accessory Movements Central P/A Fifty Six,Left P/A that Elicit Symptoms [place] L4 bilateral L5 bilateral S1 bilateral Range of Motion Lumbar Spine Active Flexion Range of 33 Motion (degrees) Lumbar Spine Active Extension Range of 3 Motion (degrees) Left Lumbar Spine Lateral Flexion Active 4 Range of Motion (degrees) Right Lumbar Spine Lateral Flexion 6 Active Range of Motion (degrees) Lumbar Spine ROM Limitations Soft Tissue Tightness,Muscle Tone,Pain Manual Muscle Test Left Knee Extension Strength Grade 3+ Fair+ Knee Flexion Strength Grade 3+ Fair+ Hip Flexion Strength Grade 3+ Fair+ Hip Abduction Strength Grade 4- Good- Hip Adduction Strength Grade 4- Good- Hip External Rotation Strength Grade 3+ Fair+ Hip Internal Rotation Strength Grade 3+ Fair+ Hip Extension Strength Grade 4- Good- Gluteus Guerrero Strength Grade 4- Good- Extensor Hallucis Longus Strength Grade 4- Good- Ankle Dorsiflexion Strength Grade 4- Good- Gastronemius/Soleus Strength Grade 4- Good- Altered Sensation LE Dermatome Level L4,L5,S1 Comment decreased light touch sensation in above patterns of LLE compared to RLE Special Tests Lumbar Spine Screen Positive Hip Piriformis Test Positive Left Sciatic Nerve Tension Test Positive Left Crossed Straight Leg Raise Test Positive Left Outpatient Therapy Assessment Impairments Problems/Impairmments Palpation Tenderness,Impaired Range of Motion,Impaired Strength,Impaired Endurance, Impaired Transfers,Impaired Gait Pattern,Impaired Walking, Impaired Standing,Impaired Household Care,Impaired Incline Stepping,Impaired Bending,Impaired Recreational Activities,Impaired Balance, Subjective C/O Pain,Impaired Self Care/Self Management Prognosis Rehab Potential Good Comment w/ HEP compliancy Clinical Impression Consistent with Diagnosis Yes Consistent with lumbago w/ radiculopathy(L>R) Short Term Goals Number of Weeks 2 Decreased Palpation Tenderness Yes: grade 1-2 +TTP to TTP assessment above Decrease Subjective C/O Pain Yes: worse:02/01 Patient to be Ind w/ HEP Yes [place] Goals Number of Weeks 4-6 Decreased Palpation Tenderness Yes: grade 1 +TTP to TTP assessment above Increase Range of Motion Yes: 5% norms lumbar AROM in all planes of motion Increase Strength Yes: 4+ to 5/5 LLE MMT scores grossly Improve Gait Pattern with Assistive Yes Device Increase Ability to Walk Yes: 5' w/ rollator w/o difficulty to improve ADLs Increase Ability to Stand Yes: 5' w/ rollator w/o difficulty to improve ADLs Improve Ability to Dress Self Yes Improve Ability to Shower/Bathe Self Yes Return to Recreational Activities Yes: 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 Improve Oswestry Score Yes Improve LEFI Score Yes Decrease Subjective C/O Pain Yes: worse:-11/04 Patient to be Ind w/ Advanced HEP Yes Outpatient Therapy Plan of Care Treatment Plan May Include Therapeutic Exercise Including Home Yes Exercise Program Manual Therapy Techniques Yes Neuromuscular Re-education Yes Therapeutic Activities to Return to Yes Previous Functional/Work Level Gait Training Yes ADL/Self Care Education Yes Mechanical Traction Yes Dry Needling Yes Thermal Modalities Yes Electrical Stimulation Yes Ultrasound/Phonophoresis Yes Iontophoresis Yes Vasopneumatic Compression Pump Yes Massage Yes Eval/Re-Eval Yes Frequency Times per week 2 Duration Number of Weeks 4-6 Addendums This patient is a candidate for social No or vocational rehab? Patient/Guardian verbally acknowledges Yes understanding of treatment program and consents to further treatment? Patient/Guardian verbally acknowledges Yes understanding of diagnosis, prognosis and goals for treatment? Eval Complexity PT Charges 55567 - Moderate Complexity Shoulder/Elbow Eval Shoulder Objective Measurements Elbow Objective Measurements PHYSICIAN CERTIFICATION: I certify the specified therapy services for [facility] are required, authorized, and reviewed every 30 days.
== END 2024-06-25 11:23 | disposition home or self-care (01) ==
LOC: PT 13:00
PROVIDERS: Visit Provider Nurse Practitioner Family
DX: M54.50 Low back pain, unspecified (principal); M79.604 Pain in right leg; M79.605 Pain in left leg
CPT/HCPCS: 97110; 97163; 97530

== ENCOUNTER 2024-06-18 09:52 | Day surgery (SDC) | payer MEDICARE, SELFPAY ==
[2024-06-18 10:03] VITALS: BP 113/56; PULSE 78; RESP 16; TEMP 36.8; O2SAT 98; BMI 32.1
[2024-06-18] MEDS: LIDOCAINE 1% 5ML PF VIAL 5 ML (10:39)
[2024-06-18] MEDS: BUPIVACAINE 0.25% 10ML INJ 25 MG IJ (10:39)
[2024-06-18] MEDS: methylPREDNISolone ACETATE 80MG/ML VIAL 80 MG (10:39)
--- NOTE | 2024-06-18 10:44 | P.PCN_ITS ---
Procedure Date: 06/18/24 Time: 10:30 Anesthesiologist:: Nima Benz CRNA Complications:: None Pre-procedure Diagnosis:: DJD right shoulder. Chronic right shoulder pain. Post-procedure Diagnosis:: Same. Indications for Procedure:: Patient is a very pleasant 88-year-old male who comes our clinic today for a right intra-articular shoulder injection of cortisone and local anesthetic. Patient describes the right shoulder pain as constant, dull, aching. Patient has 5/5 strength in the right arm. However, limited range of motion due to right shoulder pain. He rates his pain 8/10. Procedure Details:: Informed consent was obtained risk and benefits of the procedure were explained to the patient. Patient was taken to the procedure room. The right shoulder was prepped using ChloraPrep. A 25-gauge needle was used first anteriorly, late rally, and then posteriorly to inject 10 mL bupivacaine 0.25% and Depo-Medrol 40 mg. Patient tolerated procedure well with no complications. Plan and Disposition:: Patient was discharged without incident.
[2024-06-18 10:51] VITALS: BP 107/52; PULSE 56; RESP 18; O2SAT 96
== END 2024-06-18 10:51 | disposition home or self-care (01) ==
PROVIDERS: PCP Internal Medicine; Visit Provider Nurse Anesthetist, Certified Registered
DX: M19.011 Primary osteoarthritis, right shoulder (principal); M25.511 Pain in right shoulder; G89.29 Other chronic pain
CPT/HCPCS: 20610; J1010

== ENCOUNTER 2024-07-15 13:39 | Outpatient (POV) | payer MEDICARE, SELFPAY ==
--- NOTE | 2024-07-15 14:34 | A.OFFVIS_ITS ---
[facility] Disclaimer: The information contained in this section may have been updated after the patient was seen, as this information can be updated by other users. Medical History Thrombocytopenia Kidney failure Primary osteoarthritis, right shoulder Primary generalized (osteo)arthritis Constipation Atherosclerotic heart disease of [place] coronary artery without angina pectoris HTN (hypertension) GERD (gastroesophageal reflux disease) HLD (hyperlipidemia) Family History Other Unknown family medical history Social History Smoking Status: Unknown if ever smoked alcohol intake: never substance use type: denies use current occupational status: retired Travel in the last 8 weeks: None PM Subjective & Objective Subjective Subjective:: Patient is a pleasant 89-year-old male who presents today for follow-up of right shoulder intra-articular injection on 06/18/2024. Today he rates his pain a 5 out of 10. Patient denies any new trauma or injury. He does state that he had 2 weeks of really good improvement with at least 90 to 100% relief. He states that it is still helping a little however he does have more issues with range of motion and has a lot more pain first thing when he wakes up. Patient does state that when it gets more severe and does interfere with his ability to perform activities of daily living such as cooking and cleaning. He states if he starts to move around it does seem to ease up a little bit. He also states he does still feel very weak in his legs and hips but does not walk around like what he used to. Patient did previously have physical therapy that really seem to help. He states he is always open to additional therapy. Patient is prescribed Peterson 5 mg twice a day from our office. Patient states that he did use this from time to time and then it did help somewhat. He denies any side effects from it. Patient has been tried on compounded cream in the past with minimal relief his Jerome has been reviewed and is appropriate. Review of Systems: General: No recent weight changes, no fever, no sleep disturbances Respiratory: No cough, no shortness of air, no recurring pulmonary infections Cardiovascular/peripheral vascular: No chest pain, no palpitations, no edema, no shortness of breath Gastrointestinal: No new onset incontinence, normal bowel movements reported Genitourinary: No new onset incontinence Musculoskeletal: Right shoulder pain Psychiatric: [Normal mood/affect] Neurological: [Denies weakness in extremities], [denies balance issues] Pain at rest (0-10 scale): 5 Objective Objective:: Physical Exam: General: Alert and oriented x3, no acute distress, pleasant and cooperative Lungs: Respirations even and unlabored, symmetrical chest expansion Eyes: PERRL Musculoskeletal: Flexion and extension of right shoulder somewhat guarded secondary to pain, [antalgic gait noted] Neurological: Speech clear, no gross sensory deficit Has patient had previous pain injection?: Yes Percent improvement in pain since last injection: 90 to 100% Conservative treatment options previously tried: Home exercise plan Length of treatment: Longer than 12 weeks Meds Home Medications and Allergies Home Medications ?Medication ?Instructions ?Recorded ?Confirmed ?Type aspirin 81 mg tablet,delayed 81 mg PO DAILY 11/27/18 06/18/24 History release (Adult Low Dose Aspirin) doxazosin 2 mg tablet 2 mg PO DAILY 11/27/18 06/18/24 History finasteride 5 mg tablet 5 mg PO DAILY 11/27/18 06/18/24 History methocarbamol 500 mg tablet 1,000 mg (2 x 500 mg) PO Q8H PRN 12/17/23 06/18/24 Rx muscle spasm #30 tabs baclofen 10 mg tablet 10 mg PO TID #42 tabs 02/12/24 06/18/24 Rx carbamazepine 100 mg 100 mg PO DAILY #30 tabs 02/16/24 06/18/24 Rx tablet,extended release,12 hr hydrochlorothiazide 25 mg tablet 25 mg PO DAILY #90 tabs 03/05/24 06/18/24 Rx atorvastatin 40 mg tablet 40 mg PO DAILY #90 tabs 03/20/24 06/18/24 Rx zinc oxide 10 %-white petrolatum See Rx Instructions topical BID 03/26/24 06/18/24 Rx 78 % topical cream (Royal #99 grams Moist Barrier-Zinc) esomeprazole magnesium 40 mg See Rx Instructions .Route 04/15/24 06/18/24 Rx capsule,delayed release .COMPLEX #90 caps lisinopril 20 mg tablet See Rx Instructions .Route 04/15/24 06/18/24 Rx .COMPLEX #90 tabs isosorbide dinitrate 30 mg tablet 30 mg PO BID #60 tabs 04/18/24 06/18/24 Rx cyanocobalamin (vitamin B-12) 1,000 mcg PO DAILY #100 caps 04/19/24 06/18/24 Rx 1,000 mcg capsule polyethylene glycol 3350 17 17 g PO DAILY #510 grams 04/19/24 06/18/24 Rx gram/dose oral powder furosemide 40 mg tablet See Rx Instructions .Route 05/22/24 06/18/24 Rx .COMPLEX #90 tabs metoprolol succinate 50 mg See Rx Instructions .Route 06/04/24 06/18/24 Rx tablet,extended release 24 hr .COMPLEX #90 tabs hydrocodone 5 mg-acetaminophen 325 1 tab PO BID #60 tabs 06/05/24 06/18/24 Rx mg tablet New Prescriptions to Start Prescriptions: Allergies Allergy/AdvReac Type Severity Reaction Status Date / Time No Known Allergies Allergy Verified 06/18/24 10:04 Assessment and Plan *Assessment and plan (1) Right shoulder pain: Status: Acute Category: Medical Code(s): M25.511 - Pain in right shoulder Plan Patient did have significant improvement following his right intra-articular injection however is still having limited range of motion and pain in this area. I did discuss with patient that he may benefit from a right suprascapular nerve block. Risk and benefits were discussed with patient and he would like to proceed forward with this plan of care. I did also discuss with the patient that I will order additional physical therapy to treat his right shoulder pain as well as his low back pain with bilateral lower extremity pain and weakness along with his hip pain. Patient acknowledges understanding agrees with this plan of care. I will send in a 2-week dose of Peterson 5 mg daily. Patient will be scheduled for a right suprascapular nerve block. Patient has tried and failed conservative therapy including continued at home stretching exercise for longer than 12 weeks. Risks and benefits of the medication have been explained in detail to the patient. The patient does understand the risk of dependence on the medication when given over a prolonged period. Patient has been advised of risks of oversedation with the prescribed medication. Narcan has been offered to the paitent in the event of oversed ation. Patient has been advised that a family member should also be educated regarding administration of Narcan. The patient has been advised to consult with his/her primary care provider and pharmacist regarding drug-drug interaction of medications currently prescribed. Patient has been prescribed a controlled substance after being counseled on the medication, medication safety, and possible side effects. Opioid contract was reviewed and signed by the patient, and that they have agreed to all of the terms set forth by our compliance program. Patient has been instructed to contact the clinic with any concerns before the next appointment. Dr. Chavez has reviewed this note and agrees with this plan of care. This note was dictated using voice recognition software and make contain errors or omissions.
[2024-07-15 14:56] VITALS: BP 104/50; PULSE 69; RESP 18; O2SAT 93; BMI 32.1
== END 2024-07-15 23:59 | disposition home or self-care (01) ==
PROVIDERS: PCP Internal Medicine; Visit Provider Nurse Practitioner Family
DX: M25.511 Pain in right shoulder (principal); Z73.89 Other problems related to life management difficulty; Z79.899 Other long term (current) drug therapy
CPT/HCPCS: 99212; G0463

== ENCOUNTER 2024-07-23 01:47 | Emergency (ER) | payer MEDICARE, SELFPAY ==
[2024-07-23 01:49] VITALS: BP 113/57; PULSE 66; RESP 22; TEMP 37; O2SAT 93; BMI 32.1
--- NOTE | 2024-07-23 01:56 | ECG_ITS ---
APPROVED REPORT Exam: Resting ECG HR:68 bpm ECG Measurements Heart Rate 68 AXES MT 210 P 88 QRSd 106 QRS 87 QT 405 T 31 QTc 422 Conclusion SINUS RHYTHM WITH FIRST DEGREE AV BLOCK ABNORMAL ECG UNCONFIRMED REPORT Electronically signed by : NAT DISLA, 07/23/2024 04:32:49
--- NOTE | 2024-07-23 02:04 | ED_ITS ---
Discharge Plan Disposition Patient Disposition: Home, Self-Care Prescriptions Prescriptions: New amoxicillin-pot clavulanate 875-125 mg tablet 1 tab PO BID 7 Days Qty: 14 0RF azithromycin 250 mg tablet 250 mg PO DAILY 6 Days Qty: 6 0RF Rx Instructions: start on day 2 of therapy No Action finasteride 5 mg tablet 5 mg PO DAILY doxazosin 2 mg tablet 2 mg PO DAILY aspirin [Adult Low Dose Aspirin] 81 mg tablet,delayed release (DR/EC) 81 mg PO DAILY Royal Moist Barrier-Zinc 10-78 % cream See Rx Instructions topical BID Qty: 99 5RF Rx Instructions: Apply a thin layer to places on buttock twice a day carbamazepine 100 mg tablet extended release 12 hr 100 mg PO DAILY Qty: 30 2RF hydrochlorothiazide 25 mg tablet 25 mg PO DAILY Qty: 90 1RF atorvastatin 40 mg tablet 40 mg PO DAILY Qty: 90 1RF esomeprazole magnesium 40 mg capsule,delayed release(DR/EC) See Rx Instructions .ROUTE .COMPLEX Qty: 90 1RF Dose Instruction: TAKE 1 CAPSULE BY MOUTH EVERY MORNING Rx Instructions: TAKE 1 CAPSULE BY MOUTH EVERY MORNING lisinopril 20 mg tablet See Rx Instructions .ROUTE .COMPLEX Qty: 90 1RF Dose Instruction: TAKE ONE TABLET BY MOUTH ONCE A DAY Rx Instructions: TAKE ONE TABLET BY MOUTH ONCE A DAY isosorbide dinitrate 30 mg tablet 30 mg PO BID Qty: 60 2RF Rx Instructions: allow nitrate-free interval of 12-14 hrs per 24-hr period cyanocobalamin (vitamin B-12) 1,000 mcg capsule 1,000 mcg PO DAILY Qty: 100 3RF polyethylene glycol 3350 17 gram/dose powder 17 g PO DAILY Qty: 510 3RF furosemide 40 mg tablet See Rx Instructions .ROUTE .COMPLEX Qty: 90 1RF Dose Instruction: TAKE ONE TABLET BY MOUTH ONCE A DAY NEEDED FOR SWELLING Rx Instructions: TAKE ONE TABLET BY MOUTH ONCE A DAY NEEDED FOR SWELLING metoprolol succinate 50 mg tablet extended release 24 hr See Rx Instructions .ROUTE .COMPLEX Qty: 90 1RF Dose Instruction: TAKE ONE TABLET BY MOUTH ONCE A DAY Rx Instructions: TAKE ONE TABLET BY MOUTH ONCE A DAY methocarbamol 500 mg tablet 1,000 mg PO Q8H PRN (Reason: muscle spasm) Qty: 30 0RF baclofen 10 mg tablet 10 mg PO TID Qty: 42 0RF hydrocodone-acetaminophen 5-325 mg tablet 1 tab PO DAILY Qty: 30 0RF Referrals Follow up/Referrals: Oseas Kemp MD [Primary Care Provider] - See instructions Activity Restrictions/Add. Instructions Additional Instructions/Restrictions: Please follow-up with your primary care provider. Please take antibiotics as prescribed. Please return to the emergency department if you develop any new or worsening symptoms or become concerned for your health. Clinical Impressions Clinical Impression: Pneumonia due to COVID-19 virus Print Language Print Language: Fijian Discharge ED Provider: Terrence Valdez General Adult HPI General Chief complaint: Shortness of Breath/Dyspnea Stated complaint: trouble breathing, cough, congestion, vomiting Time Seen by Provider: 07/23/24 02:03 Mode of Arrival: Ambulatory Source of Information: Patient and Relative Limitations: No Limitations Description of Symptoms (Recalled from ER Triage Doc. by RN): pt reports yesterday he began feeling sick, he has a cough, runny nose and is short of breath with exertion. tonight he just became increasingly short of breath. pt son also began feeling sick tonight History of Present Illness HPI narrative: 89-year-old male presents with cough congestion and shortness of breath. He reports history of coronary artery disease, denies lung disease, previous smoker but quit 40 years ago. He reports that he and his family are all getting sick with cough and congestion. His son has had a fever though he has not. He reports that his shortness of breath has been worsening tonight so they present to the ER. His son has had vomiting but the patient did not. Related Data Home Medications ?Medication ?Instructions ?Recorded ?Confirmed aspirin 81 mg tablet,delayed 81 mg PO DAILY 11/27/18 07/15/24 release (Adult Low Dose Aspirin) doxazosin 2 mg tablet 2 mg PO DAILY 11/27/18 07/15/24 finasteride 5 mg tablet 5 mg PO DAILY 11/27/18 07/15/24 Previous Rx's ?Medication ?Instructions ?Recorded methocarbamol 500 mg tablet 1,000 mg (2 x 500 mg) PO Q8H PRN 12/17/23 muscle spasm #30 tabs baclofen 10 mg tablet 10 mg PO TID #42 tabs 02/12/24 carbamazepine 100 mg 100 mg PO DAILY #30 tabs 02/16/24 tablet,extended release,12 hr hydrochlorothiazide 25 mg tablet 25 mg PO DAILY #90 tabs 03/05/24 atorvastatin 40 mg tablet 40 mg PO DAILY #90 tabs 03/20/24 zinc oxide 10 %-white petrolatum See Rx Instructions topical BID 03/26/24 78 % topical cream ([place] #99 grams Moist Barrier-Zinc) esomeprazole magnesium 40 mg See Rx Instructions .Route 04/15/24 capsule,delayed release .COMPLEX #90 caps lisinopril 20 mg tablet See Rx Instructions .Route 04/15/24 .COMPLEX #90 tabs isosorbide dinitrate 30 mg tablet 30 mg PO BID #60 tabs 04/18/24 cyanocobalamin (vitamin B-12) 1,000 mcg PO DAILY #100 caps 04/19/24 1,000 mcg capsule polyethylene glycol 3350 17 17 g PO DAILY #510 grams 04/19/24 gram/dose oral powder furosemide 40 mg tablet See Rx Instructions .Route 05/22/24 .COMPLEX #90 tabs metoprolol succinate 50 mg See Rx Instructions .Route 06/04/24 tablet,extended release 24 hr .COMPLEX #90 tabs hydrocodone 5 mg-acetaminophen 325 1 tab PO DAILY #30 tabs 07/15/24 mg tablet amoxicillin 875 mg-potassium 1 tab PO BID 7 days #14 tabs 07/23/24 clavulanate 125 mg tablet azithromycin 250 mg tablet 250 mg PO DAILY 6 days #6 tabs 07/23/24 Allergies Allergy/AdvReac Type Severity Reaction Status Date / Time No Known Allergies Allergy Verified 06/18/24 10:04 [facility] Disclaimer: The information contained in this section may have been updated after the patient was seen, as this information can be updated by other users. Medical History Thrombocytopenia Kidney failure Primary osteoarthritis, right shoulder Primary generalized (osteo)arthritis Constipation Atherosclerotic heart disease of [place] coronary artery without angina pectoris HTN (hypertension) GERD (gastroesophageal reflux disease) HLD (hyperlipidemia) Family History Other Unknown family medical history Social History Smoking Status: Never smoker alcohol intake: never substance use type: denies use current occupational status: retired Travel in the last 8 weeks: None Other Medical History Have you received the Flu Vaccine for this season: No Have you received the Pneumonia Vaccine: Yes ROS Obtained: Yes All systems reviewed & no additional complaints except as documented Physical Exam General General appearance: alert and in no apparent distress Head Head exam: atraumatic and normocephalic Eye Eye exam: Present normal appearance, PERRL and EOMI ENT ENT exam: Present normal oropharynx and normal external ear exam Neck Neck exam: Present normal inspection and full ROM Chest Chest inspection: Present normal inspection and symmetric chest wall rise; Absent tenderness Respiratory Respiratory exam: Present normal lung sounds bilaterally; Absent respiratory distress Cardiovascular Cardiovascular exam: Present regular rate and normal rhythm Abdominal Exam Abdominal exam: Present soft; Absent distention, tenderness or guarding Extremities Exam Extremities exam: Present edema (Significant bilateral lower extremity edema, family reports that this is chronic for him); Absent joint swelling Back Exam Back exam: Present normal inspection; Absent tenderness Neurological Exam Neurological exam: Present alert and oriented X3; Absent motor sensory deficit Psychiatric Psychiatric exam: Present normal affect and normal mood Skin Skin exam: Present warm, dry and normal color Lymphatic Lymphatic Findings: no adenopathy Medical Decision Making Medical Records Medical records reviewed: Yes I reviewed the patient's medical records. Screening: Per USPSTF and CDC recommendations, given the prevalence of disease in our region, it is our hospital?s policy to screen for HIV and viral Hepatitis for all patients aged 18 and over and those with ongoing risk factors. Jerome Inquiry Pt receiving controlled substance: No Jerome was queried for this patient: No Vital Signs: 07/23/24 01:49 Temperature 98.6 F Temperature Source Oral Pulse Rate [Right] 66 Respiratory Rate 22 Blood Pressure [Right Radial Artery] 113/57 L Blood Pressure Mean [Right Radial Artery] 75 02 Sat by Pulse Oximetry 93 L Oxygen Delivery Method Room Air Lab Data Lab results reviewed: Yes I reviewed the patient's lab results. Lab Results 07/23/24 01:53: SARS-CoV-2 (PCR) Detected A, Influenza A Untype (PCR) Not detected, Influenza Type B (PCR) Not detected 07/23/24 02:00: WBC 9.2, RBC 3.17 L, Hgb 10.6 L, Hct 33.2 L, MCV 104.8 H, MCH 33.4 H, MCHC 31.9, RDW 12.7, Plt Count 133 L, MPV 10.4, Neut % (Auto) 84.0 H, L ymph % (Auto) 8.9 L, [place] % (Auto) 6.3, Eos % (Auto) 0.7, Baso % (Auto) 0.1, Neut # (Auto) 7.7, Lymph # (Auto) 0.8, [place] # (Auto) 0.6, Eos # (Auto) 0.1, Baso # (Auto) 0.0, Sodium 142, Potassium 4.6, Chloride 106, Carbon Dioxide 23, Anion Gap 17.6 H, BUN 50 H, Creatinine 1.90 H, Estimated Creat Clear 40, Estimated GFR 34 L, Est GFR ( Amer) 41 L, Glucose 115 H, Calcium 8.4, Total Bilirubin 0.8, AST 19, ALT 14, Alkaline Phosphatase 74, Troponin I 0.07 H, NT-Pro-B Natriuret Pep 8430 H, Total Protein 6.2 L, Albumin 3.6, Globulin 2.6, Albumin/Globulin Ratio 1.4, HIV 1&2 Antibody Rapid Nonreactive 07/23/24 02:18: VBG pH 7.32, VBG pCO2 43.9, VBG pO2 31.8, VBG HCO3 21.9 L, VBG Total CO2 23.3, VBG O2 Saturation 54.5, VBG Base Excess -4.3 L, VBG Lactic Acid 1.9 07/23/24 04:05: Troponin I 0.07 H 07/23/24 02:00 07/23/24 02:00 Orders (Tests/Meds): ED MEDICATIONS Discontinued Medications Generic Name Dose Route Start Last Admin Trade Name Freq PRN Reason Stop Dose Admin Amoxicillin/Clavulanate Potassium 1 each 07/23/24 04:08 07/23/24 04:33 Amoxicillin/Clavulanate Potassium 875/125mg Tablet PO 07/23/24 04:09 1 each ONCE ONE Administration Azithromycin 500 mg 07/23/24 04:08 07/23/24 04:33 Azithromycin 250mg Tablet PO 07/23/24 04:09 500 mg ONCE ONE Administration ORDERS Category Date Time Status CXR --portable [XR chest portable] Stat Exams 07/23/24 02:16 Completed BNP [NT Pro Brain Natriuretic Pep.] Stat Lab 07/23/24 02:00 Completed CBC w/Auto Diff [Complete Blood Count Auto Diff] Stat Lab 07/23/24 02:00 Completed CMP [Comprehensive Metabolic Panel] Stat Lab 07/23/24 02:00 Completed HIV (1&2) Antibody Rapid Stat Lab 07/23/24 02:00 Completed Hep C Ab with Reflex to RNA Stat Lab 07/23/24 01:58 Received Rapid PCR Covid and Flu A/B Stat Lab 07/23/24 01:53 Completed Troponin I Q3H Lab 07/23/24 02:00 Completed Troponin I Q3H Lab 07/23/24 04:05 Completed VBG [Venous Blood Gas] Stat RT 07/23/24 02:18 Completed ECG Data Tracing #1: I reviewed this ECG and interpreted as documented below: Sinus rhythm, rate of 68, prolonged [place] interval consistent with first- degree AV block. ECG initial impression date: 07/23/24 ECG initial impression time: 01:57 HEART Score History (anamnesis): Slightly suspicious ECG: Normal Age: >65 years Risk factors: Atherosclerosis history Troponin: 1-3x normal limit HEART Score: 5 Medical Decision Narrative: 89-year-old male presents for cough, congestion, worsening shortness of breath. He has had multiple recent sick contacts with family members sick with the same issue.. History was obtained via interactive discussion with patient, family. On arrival, patient is [afebrile, hemodynamically stable, satting mid 90s on room air, alert, oriented x4, GCS 15], moving all extremities spontaneously. Full physical exam performed and significant for clear lungs bilaterally, bilateral lower extremity edema which he reports is chronic for patient. Differential includes but is not limited to pneumonia, COVID, decompensated heart failure, Workup initiated including CBC CMP troponin EKG chest x-ray VBG BNP. On re-evaluation, patient [remains afebrile, HD stable.] Laboratory workup independently interpreted by me and significant for stable anemia, no significant leukocytosis, VBG within normal limits, creatinine 1.9, at baseline for patient. BNP elevated at 8400. Repeat troponin unchanged. Imaging independently interpreted by me and significant for right-sided airspace disease and small pleural effusion. See radiology read for full review of final results. Given patient history, exam and workup, patient's presentation most likely represents acute COVID infection. Given the abnormalities noted on x-ray, we will treat empirically for bacterial pneumonia as well with Augmentin and azithromycin. We considered inpatient admission for patient given his age, comorbidities and acute pneumonia. however, he is not hypoxic and has had normal vital signs throughout ER stay. He would also prefer to go home. He reports that he has follow-up with his PCP at 3:00 this afternoon, at about 12 hours. Given his hemodynamic stability and rapid follow-up, I think he is appropriate for discharge. He was given strict return precautions for any new or worsening symptoms. Procedures Risk/Benefits of Procedure(s) Were Explained: Yes Critical Care Critical Care Time Critical Care Time: No
--- NOTE | 2024-07-23 02:16 | XR_ITS ---
PROCEDURE INFORMATION: Exam: XR Chest Exam date and time: 07/23/2024 2:24 AM Age: 89 years old Clinical indication: Cough and shortness of breath; Additional info: SOA, cough TECHNIQUE: Imaging protocol: Radiologic exam of the chest. Views: 1 view. COMPARISON: CT ANGIO CHEST PE PROTOCOL 12/16/2023 9:13 PM FINDINGS: Lungs: Right lung base airspace disease. Pleural spaces: Right-sided pleural effusion. Heart/Mediastinum: Moderate cardiomegaly. Bones/joints: Median sternotomy. IMPRESSION: Right lung base airspace disease. Right-sided pleural effusion. Moderate cardiomegaly. Median sternotomy.
[2024-07-23 02:26] LABS: Lactate Venous 1.9 mmol/L (0.4-2.0); VBG Base Excess -4.3 mmol/L (-2.4-2.3); VBG HCO3 21.9 mmol/L (23-30); VBG Oxygen Saturation 54.5 % (50-70); VBG PCO2 43.9 mmol/L (35-51); VBG PH 7.32 mmol/L (7.31-7.41); VBG PO2 31.8 mmol/L (28-40); VBG Total CO2 23.3 mmol/L (23-27)
[2024-07-23 02:28] LABS: Basophils % 0.1 % (0.1-2.0); Eosinophils # 0.1 K/mm3 (0.0-0.4); Eosinophils % 0.7 % (0.1-12.0); Hematocrit 33.2 % (42.0-52.0); Hemoglobin 10.6 g/dL (14.1-18.0); Lymphocytes # 0.8 K/mm3 (0.7-4.5); Lymphocytes % 8.9 % (10-50); Mean Corpuscular HGB Conc 31.9 g/dL (31.8-35.4); Mean Corpuscular Hemoglobin 33.4 pg (27.0-31.2); Mean Corpuscular Volume 104.8 fl (80-94); Mean Platelet Volume 10.4 fl (7.4-10.4); Monocytes # 0.6 K/mm3 (0.1-1.0); Monocytes % 6.3 % (1.7-9.3); Neutrophils # 7.7 K/mm3 (1.8-7.8); Platelet Count 133 K/mm3 (142-424); Red Blood Count 3.17 M/mm3 (4.60-6.20); Red Cell Distribution Width 12.7 % (11.5-17.5); White Blood Count 9.2 K/mm3 (4.8-10.8)
[2024-07-23 02:30] LABS: Alanine Aminotransferase 14 U/L (12-78); Albumin Level 3.6 g/dl (3.5-5.0); Albumin/Globulin Ratio 1.4 (1.1-1.8); Alkaline Phosphatase 74 U/L (38-126); Anion Gap 17.6 mEq/L (5-15); Aspartate Amino Transferase 19 U/L (17-59); Bilirubin,Total 0.8 mg/dl (0.2-1.3); Blood Urea Nitrogen 50 mg/dl (9-20); Calcium 8.4 mg/dl (8.4-10.2); Carbon Dioxide 23 mmol/L (22.0-30.0); Chloride 106 mmol/L (98-107); Creatinine Clearance Estimated 40 mL/min (50-200); Estimated Glomerular Filt Rate 34 ml/min (>60); GFR (African American) 41 ML/MIN (>60); Globulin 2.6 g/dL (1.3-3.2); Glucose 115 mg/dl (74-100); Potassium 4.6 mmoL/L (3.5-5.1); Sodium 142 mmol/L (136-145); Total Protein,Serum 6.2 g/dl (6.3-8.2)
[2024-07-23 02:37] LABS: HIV (1&2) Antibody Rapid NONREACTIVE (NONREACTIVE)
[2024-07-23 02:39] LABS: Influenza A, PCR Not Detected (NotDetected); Influenza B, PCR Not Detected (NotDetected)
[2024-07-23 02:42] LABS: NT Pro Brain Natriuretic Pep. 8430 pg/mL (0-450); Troponin I 0.07 ng/ml (0.00-0.034)
[2024-07-23 03:29] LABS: Coronavirus 19, PCR Detected (NotDetected)
[2024-07-23 04:31] LABS: Troponin I 0.07 ng/ml (0.00-0.034)
[2024-07-23] MEDS: AMOXICILLIN/CLAVULANATE POTASSIUM 875/125MG TABLET 1 EACH PO (04:33)
[2024-07-23] MEDS: AZITHROMYCIN 250MG TABLET 500 MG PO (04:33)
[2024-07-23 04:35] VITALS: BP 115/78; PULSE 72; RESP 18; TEMP 37.1; O2SAT 98
[2024-07-24 08:25] LABS: HCV Ab Non Reactive (Non Reactive)
== END 2024-07-23 04:38 | disposition home or self-care (01) ==
PROVIDERS: Emergency Provider Emergency Medicine; PCP Internal Medicine
DX: U07.1 COVID-19 (principal)
CPT/HCPCS: 71045; 80053; 82803; 83880; 84484; 85025; 86803; 87389; 87636; 93005

== ENCOUNTER 2024-07-24 12:05 | Inpatient (IN) | payer MEDICARE, SELFPAY ==
[2024-07-24] VITALS (8 sets, daily range): BP systolic 104–123; BP diastolic 50–62; PULSE 66–90; RESP 16–20; TEMP 36.3–36.9; O2SAT 90–98; BMI 32.1; BMI 30.5
--- NOTE | 2024-07-24 13:07 | XR_ITS ---
PROCEDURE INFORMATION: Exam: XR Chest Exam date and time: 07/24/2024 1:13 PM Age: 89 years old Clinical indication: Condition or disease; Lung condition and disease; Pneumonia; Other: Covid; Additional info: Covid, pna TECHNIQUE: Imaging protocol: Radiologic exam of the chest. Views: 1 view. COMPARISON: CR XR CHEST PORTABLE 07/23/2024 2:24 AM FINDINGS: Lungs: There is unchanged atelectasis the right lung base with elevation right hemidiaphragm. Linear atelectasis or fibrosis is noted in the left perihilar region. Pleural spaces: Unremarkable. No pleural effusion. No pneumothorax. Heart/Mediastinum: Unremarkable. No cardiomegaly. Bones/joints: Unremarkable. IMPRESSION: Persistent opacity and volume loss at the right base.
[2024-07-24 13:15] LABS: Basophils % 0.5 % (0.1-2.0); Eosinophils # 0.1 K/mm3 (0.0-0.4); Eosinophils % 0.9 % (0.1-12.0); Hematocrit 30.1 % (42.0-52.0); Hemoglobin 9.7 g/dL (14.1-18.0); Lymphocytes % 15.4 % (10-50); Mean Corpuscular HGB Conc 32.2 g/dL (31.8-35.4); Mean Corpuscular Hemoglobin 33.1 pg (27.0-31.2); Mean Corpuscular Volume 102.9 fl (80-94); Mean Platelet Volume 10.5 fl (7.4-10.4); Monocytes # 0.6 K/mm3 (0.1-1.0); Monocytes % 8.8 % (1.7-9.3); Neutrophils % 74.4 % (37.0-80.0); Platelet Count 124 K/mm3 (142-424); Red Blood Count 2.93 M/mm3 (4.60-6.20); Red Cell Distribution Width 12.8 % (11.5-17.5); White Blood Count 6.7 K/mm3 (4.8-10.8)
--- NOTE | 2024-07-24 13:15 | ECG_ITS ---
APPROVED REPORT Exam: Resting ECG HR:72 bpm ECG Measurements Heart Rate 72 AXES ID 271 P -85 QRSd 110 QRS 72 QT 408 T -4 QTc 433 Conclusion ECTOPIC ATRIAL RHYTHM WITH FIRST DEGREE AV BLOCK NONSPECIFIC T-WAVE ABNORMALITY ABNORMAL ECG UNCONFIRMED REPORT Electronically signed by : NAT DISLA, 07/25/2024 06:50:24
[2024-07-24 13:17] LABS: Chloride 111 mmol/L (98-107)
[2024-07-24 13:18] LABS: Albumin Level 3.1 g/dl (3.5-5.0); Potassium 4.2 mmoL/L (3.5-5.1); Sodium 140 mmol/L (136-145)
[2024-07-24 13:20] LABS: Blood Urea Nitrogen 52 mg/dl (9-20); Creatinine Clearance Estimated 34 mL/min (50-200); Estimated Glomerular Filt Rate 28 ml/min (>60); GFR (African American) 34 ML/MIN (>60)
[2024-07-24 13:21] LABS: Alanine Aminotransferase 14 U/L (12-78); Albumin/Globulin Ratio 1.1 (1.1-1.8); Alkaline Phosphatase 68 U/L (38-126); Anion Gap 14.2 mEq/L (5-15); Aspartate Amino Transferase 21 U/L (17-59); Bilirubin,Total 0.6 mg/dl (0.2-1.3); Calcium 7.9 mg/dl (8.4-10.2); Carbon Dioxide 19 mmol/L (22.0-30.0); Globulin 2.7 g/dL (1.3-3.2); Glucose 109 mg/dl (74-100); Total Protein,Serum 5.8 g/dl (6.3-8.2)
[2024-07-24 13:30] LABS: NT Pro Brain Natriuretic Pep. 10100 pg/mL (0-450)
[2024-07-24] MEDS: METHYLPREDNISOLONE SOD SUCC 125MG VIAL 125 MG IV (13:31)
[2024-07-24] MEDS: IPRATROPIUM/ALBUTEROL 3 ML NEB 9 ML IH (13:31)
[2024-07-24 13:33] LABS: Troponin I 0.14 ng/ml (0.00-0.034)
--- NOTE | 2024-07-24 13:45 | ED_ITS ---
Discharge Plan Disposition Patient Disposition: Admitted Chief Complaint: Shortness of Breath/Dyspnea Prescriptions Prescriptions: No Action doxazosin 2 mg tablet 2 mg PO DAILY aspirin [Adult Low Dose Aspirin] 81 mg tablet,delayed release (DR/EC) 81 mg PO DAILY [place] Moist Barrier-Zinc 10-78 % cream See Rx Instructions topical BID Qty: 99 5RF Rx Instructions: Apply a thin layer to places on buttock twice a day carbamazepine 100 mg tablet extended release 12 hr 100 mg PO DAILY Qty: 30 2RF hydrochlorothiazide 25 mg tablet 25 mg PO DAILY Qty: 90 1RF atorvastatin 40 mg tablet 40 mg PO DAILY Qty: 90 1RF esomeprazole magnesium 40 mg capsule,delayed release(DR/EC) See Rx Instructions .ROUTE .COMPLEX Qty: 90 1RF Dose Instruction: TAKE 1 CAPSULE BY MOUTH EVERY MORNING Rx Instructions: TAKE 1 CAPSULE BY MOUTH EVERY MORNING lisinopril 20 mg tablet See Rx Instructions .ROUTE .COMPLEX Qty: 90 1RF Dose Instruction: TAKE ONE TABLET BY MOUTH ONCE A DAY Rx Instructions: TAKE ONE TABLET BY MOUTH ONCE A DAY isosorbide dinitrate 30 mg tablet 30 mg PO BID Qty: 60 2RF Rx Instructions: allow nitrate-free interval of 12-14 hrs per 24-hr period cyanocobalamin (vitamin B-12) 1,000 mcg capsule 1,000 mcg PO DAILY Qty: 100 3RF polyethylene glycol 3350 17 gram/dose powder 17 g PO DAILY Qty: 510 3RF furosemide 40 mg tablet See Rx Instructions .ROUTE .COMPLEX Qty: 90 1RF Dose Instruction: TAKE ONE TABLET BY MOUTH ONCE A DAY NEEDED FOR SWELLING Rx Instructions: TAKE ONE TABLET BY MOUTH ONCE A DAY NEEDED FOR SWELLING metoprolol succinate 50 mg tablet extended release 24 hr See Rx Instructions .ROUTE .COMPLEX Qty: 90 1RF Dose Instruction: TAKE ONE TABLET BY MOUTH ONCE A DAY Rx Instructions: TAKE ONE TABLET BY MOUTH ONCE A DAY finasteride 5 mg tablet See Rx Instructions .ROUTE .COMPLEX Qty: 90 1RF Dose Instruction: TAKE ONE TABLET BY MOUTH ONCE A DAY FOR PROSTATE Rx Instructions: TAKE ONE TABLET BY MOUTH ONCE A DAY FOR PROSTATE methocarbamol 500 mg tablet 1,000 mg PO Q8H PRN (Reason: muscle spasm) Qty: 30 0RF baclofen 10 mg tablet 10 mg PO TID Qty: 42 0RF hydrocodone-acetaminophen 5-325 mg tablet 1 tab PO DAILY Qty: 30 0RF amoxicillin-pot clavulanate 875-125 mg tablet 1 tab PO BID 7 Days Qty: 14 0RF azithromycin 250 mg tablet 250 mg PO DAILY 6 Days Qty: 6 0RF Rx Instructions: start on day 2 of therapy Referrals Follow up/Referrals: Oseas Kemp MD [Primary Care Provider] - See instructions Clinical Impressions Clinical Impression: CHF exacerbation, Generalized weakness Print Language Print Language: Nauruan Discharge ED Provider: Kadeem Matta HPI General Chief Complaint: Shortness of Breath/Dyspnea Stated Complaint: covid+, soa, headache, hallucinations Time Seen by Provider: 07/24/24 12:23 Mode of Arrival: Wheelchair Source of Information: Patient and Relative Limitations: No Limitations Description of Symptoms (Recalled from ER Triage Doc. by RN): Pt. presents to ED with complaints of shortness of breath. He tested positive for covid yesterday. He states he is fatigued and short of air on excertion. History of Present Illness HPI narrative: Please note that above description of symptoms, in this electronic medical record under categorization of recalled from ER triage doctor by RN are reflective of an initial nursing assessment, however, is not reflective of my full history and physical exam that was personally taken and clarified. Consequentially, this preceding description of symptoms, which may include the patient's categorized chief complaint in the EMR, do not reflect my personal clinical impression, and the ultimate description of history of present illness and patient stated complaints should be deferred to this section of the note. Unless stated otherwise or congruent with this section of the note, additional signs, symptoms, or incongruence should be interpreted as inaccurate with my clinical impression. Related Data Home Medications ?Medication ?Instructions ?Recorded ?Confirmed aspirin 81 mg tablet,delayed 81 mg PO DAILY 11/27/18 07/15/24 release (Adult Low Dose Aspirin) doxazosin 2 mg tablet 2 mg PO DAILY 11/27/18 07/15/24 Previous Rx's ?Medication ?Instructions ?Recorded methocarbamol 500 mg tablet 1,000 mg (2 x 500 mg) PO Q8H PRN 12/17/23 muscle spasm #30 tabs baclofen 10 mg tablet 10 mg PO TID #42 tabs 02/12/24 carbamazepine 100 mg 100 mg PO DAILY #30 tabs 02/16/24 tablet,extended release,12 hr hydrochlorothiazide 25 mg tablet 25 mg PO DAILY #90 tabs 03/05/24 atorvastatin 40 mg tablet 40 mg PO DAILY #90 tabs 03/20/24 zinc oxide 10 %-white petrolatum See Rx Instructions topical BID 03/26/24 78 % topical cream ([place] #99 grams Moist Barrier-Zinc) esomeprazole magnesium 40 mg See Rx Instructions .Route 04/15/24 capsule,delayed release .COMPLEX #90 caps lisinopril 20 mg tablet See Rx Instructions .Route 04/15/24 .COMPLEX #90 tabs isosorbide dinitrate 30 mg tablet 30 mg PO BID #60 tabs 04/18/24 cyanocobalamin (vitamin B-12) 1,000 mcg PO DAILY #100 caps 04/19/24 1,000 mcg capsule polyethylene glycol 3350 17 17 g PO DAILY #510 grams 04/19/24 gram/dose oral powder furosemide 40 mg tablet See Rx Instructions .Route 05/22/24 .COMPLEX #90 tabs metoprolol succinate 50 mg See Rx Instructions .Route 06/04/24 tablet,extended release 24 hr .COMPLEX #90 tabs hydrocodone 5 mg-acetaminophen 325 1 tab PO DAILY #30 tabs 07/15/24 mg tablet amoxicillin 875 mg-potassium 1 tab PO BID 7 days #14 tabs 07/23/24 clavulanate 125 mg tablet azithromycin 250 mg tablet 250 mg PO DAILY 6 days #6 tabs 07/23/24 finasteride 5 mg tablet See Rx Instructions .Route 07/23/24 .COMPLEX #90 tabs Allergies Allergy/AdvReac Type Severity Reaction Status Date / Time No Known Allergies Allergy Verified 06/18/24 10:04 [facility] Disclaimer: The information contained in this section may have been updated after the patient was seen, as this information can be updated by other users. Medical History Thrombocytopenia Kidney failure Primary osteoarthritis, right shoulder Primary generalized (osteo)arthritis Constipation Atherosclerotic heart disease of [place] coronary artery without angina pectoris HTN (hypertension) GERD (gastroesophageal reflux disease) HLD (hyperlipidemia) Family History Other Unknown family medical history Social History Smoking Status: Former smoker alcohol intake: never substance use type: denies use current occupational status: retired Travel in the last 8 weeks: None Other Medical History Have you received the Flu Vaccine for this season: No Have you received the Pneumonia Vaccine: Yes ROS Obtained: Yes All systems reviewed & no additional complaints except as documented Physical Exam General General appearance: alert Neck Neck exam: Present trachea midline Chest Chest inspection: Present normal inspection and symmetric chest wall rise Respiratory Respiratory exam: Present normal lung sounds bilaterally; Absent respiratory distress, wheezes, stridor, accessory muscle use or prolonged expiratory phase Cardiovascular Cardiovascular exam: Present regular rate, normal rhythm and other (Pulses equal and symmetric in upper and lower extremities) Extremities Exam Extremities exam: Present edema Neurological Exam Neurological exam: Present alert, oriented X3 and CN II-XII intact Skin Skin exam: Present warm and dry; Absent cyanosis, diaphoresis or pallor HEART Score HEART Score HEART Score assessment performed?: Yes HEART Score: 7 Critical Care Critical Care Time Critical Care Time: Yes (cardiac) Attestation: On 07/24/24, the high probability of a clinically significant, sudden or life threatening deterioration of the following system(s) required my full and direct attention, intervention and personal management. The time I documented below is in addition to time spent performing reported procedures but includes the following listed in this critical care notation. Total Time Total Critical Care Time: 45 Medical Decision Making Medical Records Medical records reviewed: Yes I reviewed the patient's medical records. Jerome Inquiry Pt receiving controlled substance: No Jerome was queried for this patient: No Vital Signs Vital Signs: 07/24/24 12:16 07/24/24 12:30 07/24/24 13:00 Temperature 98.4 F Temperature Source Oral Pulse Rate 74 74 Pulse Rate [Right Brachial] 74 Respiratory Rate 16 Blood Pressure 121/60 121/62 Blood Pressure [Right Arm] 117/58 L Blood Pressure Mean [Right Arm] 77 Blood Pressure Source [Right Arm] Automatic Cuff Blood Pressure Position [Right Arm] Sitting 02 Sat by Pulse Oximetry 95 94 L 94 L Oxygen Delivery Method Room Air 07/24/24 13:48 07/24/24 14:01 Temperature Temperature Source Pulse Rate 66 66 Pulse Rate [Right Brachial] Respiratory Rate Blood Pressure 123/54 L 108/50 L Blood Pressure [Right Arm] Blood Pressure Mean [Right Arm] Blood Pressure Source [Right Arm] Blood Pressure Position [Right Arm] 02 Sat by Pulse Oximetry 97 98 Oxygen Delivery Method Lab Data Labs: Lab Results 07/24/24 12:14: WBC 6.7 D, RBC 2.93 L, Hgb 9.7 L, Hct 30.1 L, MCV 102.9 H, MCH 33.1 H, MCHC 32.2, RDW 12.8, Plt Count 124 L, MPV 10.5 H, Neut % (Auto) 74.4, Lymph % (Auto) 15.4, [place] % (Auto) 8.8, Eos % (Auto) 0.9, Baso % (Auto) 0.5, Neut # (Auto) 5.0, Lymph # (Auto) 1.0, [place]alier # (Auto) 0.6, Eos # (Auto) 0.1, Baso # (Auto) 0.0, Sodium 140, Potassium 4.2, Chloride 111 H, Carbon Dioxide 19 L, Anion Gap 14.2, BUN 52 H, Creatinine 2.20 H, Estimated Creat Clear 34, Estimated GFR 28 L, Est GFR ( Amer) 34 L, Glucose 109 H, Calcium 7.9 L, Total Bilirubin 0.6, AST 21, ALT 14, Alkaline Phosphatase 68, Troponin I 0.14 H, N T-Pro-B Natriuret Pep 23575 H, Total Protein 5.8 L, Albumin 3.1 L D, Globulin 2.7, Albumin/Globulin Ratio 1.1 07/24/24 13:07: VBG pH 7.23 L, VBG pCO2 45.1, VBG pO2 49.4 H, VBG HCO3 18.6 L, V BG Total CO2 20.0 L, VBG O2 Saturation 77.2 H, VBG Base Excess -8.9 L, VBG Lactic Acid 3.6 H 07/24/24 12:14 07/24/24 12:14 Response Orders (Tests/Meds): ED MEDICATIONS Discontinued Medications Generic Name Dose Route Start Last Admin Trade Name Freq PRN Reason Stop Dose Admin Albuterol/Ipratropium 9 ml 07/24/24 13:21 07/24/24 13:31 Ipratropium/Albuterol 3 Ml Neb IH 07/24/24 13:22 9 ml ONCE ONE Administration Furosemide 60 mg 07/24/24 14:34 07/24/24 14:41 Furosemide 40mg/4ml Vial IV 07/24/24 14:35 60 mg ONCE ONE Administration Methylprednisolone Sodium Succinate 125 mg 07/24/24 13:22 07/24/24 13:31 Methylprednisolone Sod Succ 125mg Vial IV 07/24/24 13:23 125 mg ONCE ONE Administration ORDERS Category Date Time Status CXR --portable [XR chest portable] Stat Exams 07/24/24 13:07 Completed CBC w/Auto Diff [Complete Blood Count Auto Diff] Stat Lab 07/24/24 12:14 Completed CMP [Comprehensive Metabolic Panel] Stat Lab 07/24/24 12:14 Completed NT Pro Brain Natriuretic Pep. Stat Lab 07/24/24 12:14 Completed Trop I [Troponin I] Stat Lab 07/24/24 12:14 Completed Troponin I Q3H Lab 07/24/24 16:15 Ordered Troponin I Q3H Lab 07/24/24 19:15 Ordered Blood Culture Stat Micro 07/24/24 14:16 Received VBG [Venous Blood Gas] Stat RT 07/24/24 13:07 Completed MDM Narrative Medical Decision Narrative: 89-year-old male history of hypertension, hyperlipidemia, CAD, CABG, BPH, recent diagnosis of COVID-19 presenting with generalized weakness. Patient states that he is feeling generally weak, short of breath, largely unable to do much at home secondary to weakness. Lives alone. Son has been staying with him helping him, corroborate story. Patient has been coughing and sputum is clear to white intermittently. No fevers or chills, nausea or vomiting. Has had mild anorexia with decreased p.o. intake, but last bowel movement was today, still urinating without issue.. History was obtained via conversation with patient and son. On arrival, patient hemodynamically stable, alert, oriented x4, appropriate, GCS 15, moving all extremities spontaneously, pupils equal and reactive to light. Full physical exam performed and significant for chronically ill-appearing male who is in no acute distress. Lungs are clear with the exception of left upper lobe wheezes. Cardiac exam with right upper sternal border murmur. significant lower extremity edema. Abdomen soft, nontender, nondistended. Differential includes ACS, RI, pneumonia, pneumothorax, CHF, among others. Patient was given nebs and steroid for symptomatic management and correction of underlying abnormalities. Patient placed on continuous cardiac monitoring and continuous pulse ox with initial blood pressure 117/58, heart rate 74, saturation 95% on room air. Independent interpretation of EKG shows sinus rhythm first-degree AV block AK 271, QRS 110, QTc 433. No acute ischemic change. 72 beats a minute. Workup independently interpreted and significant for nonactionable CBC. VBG with metabolic acidosis, lactate 3.6. pH 7.23. DANIEL on CKD creatinine 2.2. Troponin elevated 0.14, BNP elevated 10,000. On independent interpretation of imaging, pulmonary vascular congestion, no overt edema or effusions. See radiology read for full review of final results. Heart/[id number]/Wells/PERC/Age adjusted/YEARS.On reevaluation, patient resting comfortably, 60 mg IV Lasix was administered. Hospital medicine contacted and case was discussed at length, to be admitted for CHF exacerbation. Given patient presentation, workup, history, this most likely represents CHF exacerbation and exertional dyspnea. Because patient high risk for clinical decompensation, deemed appropriate for inpatient admission. Results were relayed to patient who voiced understanding and patient was agreeable to inpatient admission and management. Patient was admitted to the hospital for further definitive management. Dealer Compliance Representative disclaimer Much of this encounter note is an electronic clothing supervisor spoken language to printed text. Electronic clothing supervisor of the spoken language may permit errors. Although I have reviewed the note, some errors may still exist.
[2024-07-24 13:56] LABS: VBG Base Excess -8.9 mmol/L (-2.4-2.3); VBG HCO3 18.6 mmol/L (23-30); VBG Oxygen Saturation 77.2 % (50-70); VBG PCO2 45.1 mmol/L (35-51); VBG PH 7.23 mmol/L (7.31-7.41); VBG PO2 49.4 mmol/L (28-40)
[2024-07-24 14:21] LABS: Lactate Venous 3.6 mmol/L (0.4-2.0)
[2024-07-24] MEDS: FUROSEMIDE 40MG/4ML VIAL 60 MG IV (14:41)
--- NOTE | 2024-07-24 14:49 | CA_ITS ---
APPROVED REPORT EXAM: Comprehensive 2D, Doppler, and color-flow Echocardiogram Blemish Remover: QUINTIN Vuong, RVS Ht: 5 ft 10 in Wt: 230lbs BSA: 2.21 BP: 121/62 mmHg Rhythm: Irregular Indications: CAD CABG, CHF, Edema, Murmur, SOB, Fatigue , Weakness Echo Enhancing Agent Comments: Patient scanned bedside / Supine 2D Dimensions Left Atrium 3.84 cm LA Volume 70.20 mL LA Volume Index 30.90 mL/m2 (M/F) 16-34 EF AP4 53.20 % GL Strain -18.0 % M-Mode Dimensions RVDd 4.86 cm (0.9-2.6) LA Diam 4.81 cm (1.9-4.0) LVDd 5.54 cm (3.5-5.7) LVDs 4.23 cm (3.5-5.7) IVSd 1.61 cm (0.6-1.1) PWd 1.23 cm (0.6-1.1) EF (Teich) 46.70% EPSs 0.13 cm FS 23.60% EDV (Teich) 149.90 mL TAPSE 1.32 (<1.7) ESV (Teich) 79.90 mL LV Diastology E Decel Time 240 (160-240 msec) E/A Ratio 1.52 MED A' 7.80 cm/s LAT A' 5.70 cm/s Aortic Valve TREVIN Index 1.04 cm2/m2 AoV Peak Danielito. 119.0 (50-130 cm/s) AO Peak GR. 5.60 mmHg AO Mean GR. 2.90 (<5 mmHg) AO VTI 21.8 (18-25 cm) TREVIN (VTI) 2.37 (2.5-4.5 cm2) Mitral Valve MV A Velocity 56.0 (40-130 cm/s) E/A Ratio 1.52 Pulmonary Valve MI End VMAX 163.0 cm/s Tricuspid Valve TR P. Velocity 238.00 cm/s RAP Estimate 10.00 mmHg RVSP 32.70 mmHg Left Ventricle The left ventricle is normal size. The left ventricular systolic function is low normal. There is increased LV wall thickness. Diastolic function is indeterminate. The septum is asynchronous. Regional wall motion cannot be evaluated due to technically difficult study. LVEF is 50%. Right Ventricle The right ventricle is not very well-visualized, but appears to be at least mildly dilated and at least mildly reduced in function. Atria The left atrium is mildly dilated. The right atrium is mildly dilated. There is no Doppler evidence of interatrial shunt. Aortic Valve The aortic valve is mildly thickened. There is no aortic valvular stenosis. Trace aortic regurgitation. Mitral Valve The mitral valve is mildly thickened. Trace mitral regurgitation. Tricuspid Valve Tricuspid valve is grossly normal in structure and function. Mild tricuspid regurgitation. RVSP is 15 mmHg + RA pressure. Pulmonic Valve The pulmonary valve is normal in structure. Trace pulmonic regurgitation. Great Vessels The aortic root is normal in size. The ascending aorta is not well-visualized. The IVC is not well-visualized. Pericardium There is no pericardial effusion. Other Information Study Quality: Technically Difficult Conclusion Technically difficult study due to poor acoustic windows. Low normal LV systolic function (LVEF 50%). Regional wall motion cannot be evaluated due to technically difficult study. RV not well-visualized, but appears to be at least mildly dilated with mildly reduced RV function. Biatrial dilation. Mild TR. In the setting of technically difficult study, future evaluations with TTE are suggested with administration of ultrasound enhancing agent. Electronically signed by : Ruchi Manriquez MD 07/25/2024 11:41:59
--- NOTE | 2024-07-24 15:10 | HMH.PHAINT1 ---
Pharmacy Intervention Comments: MEDICATION RECONCILIATION COMPLETED ON PATIENT USING EXTERNAL FILL HISTORY FROM PHARMACY AND NICOLAS REPORT. -HARRIS LAO, BENJID
--- NOTE | 2024-07-24 15:46 | PC.NURSE ---
arrived by w/c from ED
--- NOTE | 2024-07-24 16:40 | CT_ITS ---
PROCEDURE INFORMATION: Exam: CT Head Without Contrast Exam date and time: 07/24/2024 7:01 PM Age: 89 years old Clinical indication: Pain; Headache; Additional info: Posterior headache, moderate to severe TECHNIQUE: Imaging protocol: Computed tomography of the head without contrast. Radiation optimization: All CT scans at this facility use at least one of these dose optimization techniques: automated exposure control; mA and/or kV adjustment per patient size (includes targeted exams where dose is matched to clinical indication); or iterative reconstruction. COMPARISON: MR HEAD/BRAIN WO CON 06/01/2021 3:09 PM FINDINGS: Brain: No intracranial hemorrhage. Generalized atrophic changes of the ventricles and subarachnoid spaces. Chronic small-vessel ischemic changes noted. No mass, mass effect or midline shift. Intracranial atherosclerotic changes are noted. Interval development of a 15 x 9 mm low-density lesion in the posterior right basal ganglion centered on axial image 37 of series 3. Cerebral ventricles: See Brain finding. Paranasal sinuses: Visualized sinuses are unremarkable. No fluid levels. Mastoid air cells: Visualized mastoid air cells are well aerated. Bones: Unremarkable. No acute fracture. Soft tissues: Unremarkable. IMPRESSION: 1. Interval development of a 15 x 9 mm indeterminate low-density lesion in the right basal ganglion. This might reflect a subacute area small infarct. Other process not excluded. Further assessment with MRI of the brain with and without contrast advised as precise etiology indeterminate. 2. Otherwise stable noncontrast CT brain with chronic changes. No acute intracranial abnormality.
[2024-07-24] MEDS: LORazepam 1MG TABLET 2 MG PO (17:19)
[2024-07-24 17:38] LABS: Troponin I 0.12 ng/ml (0.00-0.034)
[2024-07-24 18:20] LABS: Reflex Lactic Add Lactic Reflex
--- NOTE | 2024-07-24 19:01 | EXP.HP ---
History of Present Illness *Admission Date: 07/24/24 *Reason for visit:: Shortness of breath, lower extremity edema *History of present illness: Douglas Hughes is a 89-year-old male with a medical history significant for CABG x3, hypertension, BPH who presents with 1 month onset of weakness, exertional dyspnea which has worsened over the past few days including new onset lower extremity edema. He states he has been having on and off exertional dyspnea for a few months, became mildly more prominent over the past month and progressively worsening over the past few days. He also notes that his legs have swollen over the past few days. Denies chest pain, fevers, recent sick contacts. No significant coughing. Vital signs stable on arrival, including oxygen saturation on room air. Workup in the ED significant for VBG pH 7.23, lactic acid 3.6, creatinine 2.2 (baseline around 1.9), troponin 0.14-0.12, proBNP 10,100. CXR shows persistent opacity and volume loss at the right base. Given Lasix 60 mg in the ED. Case discussed with ED provider and decision was made to admit patient for new onset decompensated heart failure. [facility] Disclaimer: The information contained in this section may have been updated after the patient was seen, as this information can be updated by other users. Medical History (Updated 07/24/24 @ 19:25 by Efren Rodas MD) Thrombocytopenia Kidney failure Primary osteoarthritis, right shoulder Primary generalized (osteo)arthritis Constipation Atherosclerotic heart disease of [place] coronary artery without angina pectoris HTN (hypertension) GERD (gastroesophageal reflux disease) HLD (hyperlipidemia) Family History Other Unknown family medical history Social History (Updated 07/24/24 @ 16:49 by Sandra Montesinos RN) Smoking Status: Former smoker alcohol intake: never substance use type: denies use current occupational status: retired Travel in the last 8 weeks: None Other Medical History Have you received the Flu Vaccine for this season: Yes Have you received the Pneumonia Vaccine: Yes Meds Home Medications and Allergies Home Medications ?Medication ?Instructions ?Recorded ?Confirmed ?Type aspirin 81 mg tablet,delayed 81 mg PO DAILY 11/27/18 07/24/24 History release (Adult Low Dose Aspirin) hydrochlorothiazide 25 mg tablet 25 mg PO DAILY #90 tabs 06/11/24 10/30/24 Rx atorvastatin 40 mg tablet 40 mg PO DAILY #90 tabs 03/20/24 07/24/24 Rx isosorbide dinitrate 30 mg tablet 30 mg PO BID #60 tabs 04/18/24 07/24/24 Rx cyanocobalamin (vitamin B-12) 1,000 mcg PO DAILY #100 caps 04/19/24 07/24/24 Rx 1,000 mcg capsule hydrocodone 5 mg-acetaminophen 325 1 tab PO DAILY #30 tabs 07/15/24 07/24/24 Rx mg tablet amoxicillin 875 mg-potassium 1 tab PO BID 7 days #14 tabs 07/23/24 07/24/24 Rx clavulanate 125 mg tablet azithromycin 250 mg tablet 250 mg PO DAILY 6 days #6 tabs 07/23/24 07/24/24 Rx doxazosin 4 mg tablet 4 mg PO DAILY 07/24/24 07/24/24 History esomeprazole magnesium 40 mg 40 mg PO DAILY 07/24/24 07/24/24 History capsule,delayed release finasteride 5 mg tablet 5 mg PO DAILY 07/24/24 07/24/24 History furosemide 40 mg tablet 40 mg PO DAILYP PRN Swelling 07/24/24 07/24/24 History lisinopril 20 mg tablet 20 mg PO DAILY 07/24/24 07/24/24 History metoprolol succinate 50 mg 50 mg PO DAILY 07/24/24 07/24/24 History tablet,extended release 24 hr New Prescriptions to Start Prescriptions: Allergies Allergy/AdvReac Type Severity Reaction Status Date / Time No Known Allergies Allergy Verified 06/18/24 10:04 Exam Data for Last 24 hours Vital signs and Labs for Last 24 Hours: Temp Pulse Resp BP Pulse Ox O2 Del Method 98.5 F 76 18 118/50 L 91 L Room Air 07/24/24 15:46 07/24/24 15:46 07/24/24 15:46 07/24/24 15:46 07/24/24 15:46 07/24/24 18:30 Laboratory Results - last 24 hr 07/24/24 12:14: WBC 6.7 D, RBC 2.93 L, Hgb 9.7 L, Hct 30.1 L, MCV 102.9 H, MCH 33.1 H, MCHC 32.2, RDW 12.8, Plt Count 124 L, MPV 10.5 H, Neut % (Auto) 74.4, Lymph % (Auto) 15.4, Sutter % (Auto) 8.8, Eos % (Auto) 0.9, Baso % (Auto) 0.5, Neut # (Auto) 5.0, Lymph # (Auto) 1.0, Sutter # (Auto) 0.6, Eos # (Auto) 0.1, Baso # (Auto) 0.0, Sodium 140, Potassium 4.2, Chloride 111 H, Carbon Dioxide 19 L, Anion Gap 14.2, BUN 52 H, Creatinine 2.20 H, Estimated Creat Clear 34, Estimated GFR 28 L, Est GFR ( Amer) 34 L, Glucose 109 H, Calcium 7.9 L, Total Bilirubin 0.6, AST 21, ALT 14, Alkaline Phosphatase 68, Troponin I 0.14 H, NT-Pro-B Natriuret Pep 05348 H, Total Protein 5.8 L, Albumin 3.1 L D, Globulin 2.7, Albumin/Globulin Ratio 1.1 07/24/24 13:07: VBG pH 7.23 L, VBG pCO2 45.1, VBG pO2 49.4 H, VBG HCO3 18.6 L, VBG Total CO2 20.0 L, VBG O2 Saturation 77.2 H, VBG Base Excess -8.9 L, VBG Lactic Acid 3.6 H 07/24/24 16:43: Troponin I 0.12 H I & O for Last 24 hours: Intake & Output 07/21/24 07/22/24 07/23/24 07/24/24 23:59 23:59 23:59 23:59 Intake Total 240 / 240 Output Total 0 / 0 Balance 240 / 240 Weight 99.053 kg Constitutional Constitutional: no acute distress and obese *Routine HEENT Exam Head: Present normocephalic Eye: Present EOMI and PERRL ENT: Present mucous membranes moist *Routine Neck Exam Neck: Present supple; Absent lymphadenopathy *Routine Respiratory Exam Respiratory: Present CTA bilaterally *Routine Cardiovascular Exam Cardiovascular: Present RRR *Routine Abdominal Exam Abdominal: Present soft and normoactive bowel sounds; Absent tenderness *Routine Rectal Exam Rectal:: deferred *Routine Genitalia Exam Genitalia:: deferred *Routine Extremities Exam Extremities: Present edema; Absent cyanosis or clubbing Comments: Lower extremity pitting edema to above the knees 3+. *Routine Skin Exam Skin: Present warm; Absent rash *Routine Neurological Exam Neurological: Present alert and oriented X3 Assessment and Plan *Assessment and plan (1) Generalized weakness: Status: Acute Category: Medical Code(s): R53.1 - Weakness (2) New onset of congestive heart failure: Status: Acute Category: Medical Code(s): I50.9 - Heart failure, unspecified (3) HTN (hypertension): Status: Acute Category: Medical Code(s): I10 - Essential (primary) hypertension (4) DANIEL (acute kidney injury): Status: Acute Category: Medical Code(s): N17.9 - Acute kidney failure, unspecified (5) CKD (chronic kidney disease): Status: Acute Category: Medical Code(s): N18.9 - Chronic kidney disease, unspecified Plan Douglas Hughes is a 89-year-old male with a medical history significant for CABG x3, hypertension, BPH who presents with 1 month onset of weakness, exertional dyspnea which has worsened over the past few days including new onset lower extremity edema. He states he has been having on and off exertional dyspnea for a few months, became mildly more prominent over the past month and progressively worsening over the past few days. He also notes that his legs have swollen over the past few days. Denies chest pain, fevers, recent sick contacts. No significant coughing. Vital signs stable on arrival, including oxygen saturation on room air. Workup in the ED significant for VBG pH 7.23, lactic acid 3.6, creatinine 2.2 (baseline around 1.9), troponin 0.14-0.12, proBNP 10,100. CXR shows persistent opacity and volume loss at the right base. Given Lasix 60 mg in the ED. Case discussed with ED provider and decision was made to admit patient for new onset decompensated heart failure. #Acute new onset decompensated heart failure, unknown type #Exertional dyspnea #Lower extremity pitting edema #History of CABG ? Initial BNP 10,100, troponins 0.14-0.12. Denies chest pain, and current shortness of breath. ? Significant peripheral pitting edema 3+. No significant pulmonary edema. ? Started IV Lasix 40 mg twice daily. Given IV Lasix 60 mg in the ED. ? Continue home aspirin 81 mg, atorvastatin 40 mg, metoprolol succinate 50 mg. ? Follow-up ECHO. ? Continuous cardiac telemetry. ? Cardiology consulted, pending recommendations. ? Follow-up A1c, TSH, lipid panel. ? Strict MARY's, fluid/salt restriction. Bed elevation. #DANIEL on CKD stage III ? Initial creatinine 2.2, baseline around 1.9. In the setting of fluid overload. Diuresis as above. ? Continue monitor renal function. #Metabolic acidosis #Lactic acidosis ? Initial lactic acid 3.6. In the setting of volume overload, third spacing. ? Diuresis as above. Continue to follow lactic acid. #Hypertension ? Resume home Isordil, lisinopril, hydrochlorothiazide once appropriate for BP. #BPH ? Resume home doxazosin, finasteride. #GERD ? Resume home PPI.
[2024-07-24 19:47] LABS: Lactic Acid Follow Up (RFLX 1) 2.2 mmol/L (0.7-2.1)
[2024-07-24 19:50] LABS: Troponin I 0.12 ng/ml (0.00-0.034)
[2024-07-24] MEDS: PANTOPRAZOLE 40MG TABLET 40 MG PO (20:22)
[2024-07-24 20:40] LABS: Adenovirus,PCR Not Detected (NotDetected); Bordetella Pertussis Not Detected (NotDetected); Chlamydophila Pneumoniae, PCR Not Detected (NotDetected); Coronavirus 229E Not Detected (NotDetected); Coronavirus NL63 Not Detected (NotDetected); Coronavirus OC43 Not Detected (NotDetected); Coronovirus HKU1,PCR Not Detected (NotDetected); Human Metapneumovirus Not Detected (NotDetected); Influenza A, PCR Not Detected (NotDetected); Influenza AH1, 2009 Not Detected (NotDetected); Influenza AH1, PCR Not Detected (NotDetected); Influenza AH3,PCR Not Detected (NotDetected); Influenza B, PCR Not Detected (NotDetected); Mycoplasma Pneumoniae, PCR Not Detected (NotDetected); Parainfluenza 1, PCR Not Detected (NotDetected); Parainfluenza 2, PCR Not Detected (NotDetected); Parainfluenza 3, PCR Not Detected (NotDetected); Parainfluenza 4, PCR Not Detected (NotDetected); Respiratory Syncytial Virus Not Detected (NotDetected); Rhinovirus/Enterovirus Not Detected (NotDetected)
[2024-07-24 21:24] LABS: Reflex Lactic (2 hrs) Add Lactic Reflex
[2024-07-24 22:11] LABS: Lactic Acid Follow up (RFLX 2) 1.2 mmol/L (0.7-2.1)
[2024-07-25] VITALS (7 sets, daily range): BP systolic 107–148; BP diastolic 51–71; PULSE 70–96; RESP 16–20; TEMP 36.4–36.9; O2SAT 92–98; BMI 30.9
[2024-07-25 01:32] LABS: Coronavirus 19, PCR Detected (NotDetected)
[2024-07-25] MEDS: GUAIFENESIN/DEXTROMETHORPHAN 200MG/20MG 10ML UDC 10 ML PO ×2 (05:56→22:11)
--- NOTE | 2024-07-25 06:13 | PC.NURSE ---
Pt A&OX4 and has tolerated room air. Lung sounds diminished and bowel sounds active. Pt has ambulated to bathroom with x1 assist with a walker. Pt has remained on droplet precaution. He did complain of a cough and was medicated per MAR. Currently laying in bed with call light within reach.
[2024-07-25 06:23] LABS: Basophils % 0.2 % (0.1-2.0); Eosinophils % 0.1 % (0.1-12.0); Hematocrit 31.2 % (42.0-52.0); Hemoglobin 10.2 g/dL (14.1-18.0); Lymphocytes # 0.4 K/mm3 (0.7-4.5); Lymphocytes % 10.8 % (10-50); Mean Corpuscular HGB Conc 32.6 g/dL (31.8-35.4); Mean Corpuscular Hemoglobin 33.6 pg (27.0-31.2); Mean Platelet Volume 10.4 fl (7.4-10.4); Monocytes # 0.2 K/mm3 (0.1-1.0); Monocytes % 4.2 % (1.7-9.3); Neutrophils # 3.4 K/mm3 (1.8-7.8); Neutrophils % 84.7 % (37.0-80.0); Platelet Count 123 K/mm3 (142-424); Red Blood Count 3.03 M/mm3 (4.60-6.20); Red Cell Distribution Width 12.5 % (11.5-17.5); White Blood Count 4.1 K/mm3 (4.8-10.8)
[2024-07-25 06:25] LABS: Albumin Level 3.3 g/dl (3.5-5.0); Chloride 109 mmol/L (98-107); Potassium 4.4 mmoL/L (3.5-5.1); Sodium 139 mmol/L (136-145)
[2024-07-25 06:28] LABS: Alanine Aminotransferase 15 U/L (12-78); Albumin/Globulin Ratio 1.3 (1.1-1.8); Alkaline Phosphatase 66 U/L (38-126); Anion Gap 16.4 mEq/L (5-15); Aspartate Amino Transferase 25 U/L (17-59); Bilirubin,Total 0.4 mg/dl (0.2-1.3); Blood Urea Nitrogen 53 mg/dl (9-20); Calcium 7.9 mg/dl (8.4-10.2); Carbon Dioxide 18 mmol/L (22.0-30.0); Creatinine Clearance Estimated 31 mL/min (50-200); Estimated Glomerular Filt Rate 27 ml/min (>60); GFR (African American) 33 ML/MIN (>60); Globulin 2.6 g/dL (1.3-3.2); Glucose 192 mg/dl (74-100); Total Protein,Serum 5.9 g/dl (6.3-8.2)
[2024-07-25 06:34] LABS: Hemoglobin A1C 5.8 % (4.0-6.0)
[2024-07-25 06:38] LABS: Chol/HDL Ratio 2.1 (1-3.5); Cholesterol 88 mg/dl (140-200); HDL Cholesterol 41 mg/dl (40-60); Triglycerides 57 mg/dl (30-150); VLDL Cholesterol 11 mg/dL (0-40)
[2024-07-25] MEDS: MAGNESIUM SULFATE IN WATER 2 GM/50 ML PIGGYBACK IV ×3 (06:46→09:59)
[2024-07-25 06:48] LABS: Direct LDL Cholesterol 32.25 mg/dL (100-129)
[2024-07-25 06:59] LABS: Thyroid Stimulating Hormone 1.15 uIU/mL (0.465-4.68)
--- NOTE | 2024-07-25 08:13 | MR_ITS ---
PROCEDURE INFORMATION: Exam: MR Head Without Contrast Exam date and time: 07/25/2024 12:07 PM Age: 89 years old Clinical indication: Stroke-like symptoms; Generalized weakness; Additional info: Follow up possible stroke on CT head TECHNIQUE: Imaging protocol: Magnetic resonance imaging of the head without contrast. COMPARISON: CT HEAD/BRAIN WO CON 07/24/2024 7:01 PM FINDINGS: Brain: Diffusion-weighted imaging demonstrates no evidence of increased signal to suggest an acute ischemic event. Moderate atrophy and small-vessel ischemic changes in the deep white matter without midline shift. No intracranial hemorrhage. Cerebral ventricles: Normal. No ventriculomegaly. Bones: Unremarkable. Paranasal sinuses: Normal as visualized. No acute sinusitis. Mastoid air cells: Normal as visualized. No mastoid effusion. Orbital cavities: Unremarkable. Soft tissues: Unremarkable. IMPRESSION: Chronic age-related changes without acute intracranial hemorrhage, infarct or mass.
[2024-07-25] MEDS: METOPROLOL SUCCINATE XL 50MG TABLET 50 MG PO (09:05)
[2024-07-25] MEDS: ENOXAPARIN 40MG/0.4ML SYRINGE 40 MG SUBCUT (09:05)
[2024-07-25] MEDS: DOXAZOSIN 4MG TAB 4 MG PO (09:05)
[2024-07-25] MEDS: ASPIRIN EC 81MG TABLET 81 MG PO (09:05)
[2024-07-25] MEDS: FINASTERIDE 5MG TABLET 5 MG PO (09:05)
[2024-07-25] MEDS: FUROSEMIDE 40MG/4ML VIAL 40 MG IV (09:06)
--- NOTE | 2024-07-25 09:08 | SW/DCPLANNER ---
Addendum entered by [facility] 07/26/24 14:06: Per patient will discharge to [facility] level of care today. Addendum entered by [facility] 07/26/24 13:19: Per [facility] patient has been approved SNF level of care. [facility]ina has also stated if patient is not ready for discharge today they could accept tomorrow. Addendum entered by [facility] 07/26/24 12:00: Updated patient information faxed to [facility]ina mooney/ [facility] to start precert today. Per patient could be ready for discharge later this afternoon or tomorrow. Addendum entered by [facility] 07/26/24 07:53: *Precert was not started yesterday due to patient not being medically stable for discharge. I will follow up w/ Paulina this AM. Addendum entered by Kerrie Fleetwood 07/25/24 11:18: Paulina w/ [facility] stated that she can accept this patient pending precert. Precert will be started today. Original Note: I spoke w/ this patient regarding plans once medically stable for discharge. PT/OT has been ordered today. Patient/family was working w/ [facility] prior to admission to transition care to their facility from home. Patient is agreeable for information to be faxed to [facility] at this time. I will fax information and follow up. Discharge date is unknown at this time.
--- NOTE | 2024-07-25 09:59 | HMH.PTEV ---
Physical Therapy Evaluation Rehab PT IP Evaluation Start: 07/25/24 08:10 Freq: ONCE Status: Active Protocol: Document 07/25/24 09:46 ALICIA (Rec: 07/25/24 09:59 ALICIA [id number]) Subjective/History History History Per H&P: Douglas Hughes is a 89-year-old male with a medical history significant for CABG x3, hypertension, BPH who presents with 1 month onset of weakness, exertional dyspnea which has worsened over the past few days including new onset lower extremity edema. He states he has been having on and off exertional dyspnea for a few months, became mildly more prominent over the past month and progressively worsening over the past few days. He also notes that his legs have swollen over the past few days . Denies chest pain, fevers, recent sick contacts. No significant coughing. Vital signs stable on arrival, including oxygen saturation on room air. Workup in the ED significant for VBG pH 7.23, lactic acid 3.6, creatinine 2. 2 (baseline around 1.9), troponin 0.14-0.12, proBNP 10, 100. CXR shows persistent opacity and volume loss at the right base. Given Lasix 60 mg in the ED. Case discussed with ED provider and decision was made to admit patient for new onset decompensated heart failure. Subjective Subjective Pt reports he lives alone in a home with a ramped entrance. Pt uses a rollator for IND ambulation. Pt reports he has been having more trouble with mobility lately. Pt has a son that checks in frequently. Pt reports he does not feel completely safe going home alone at this time. Pt was not driving prior to admission. New diagnosis of cancer in past 12 No months? Rehab PT IP Eval Objective Appearance Patient Behavior Appropriate,Cooperative Patient Orientation Person,Situation Difficulty following instructions none Speech Pattern Clear Ambulation Patient Able to Ambulate Yes Ambulation Observation IP General Gait Pattern Observation Wide Based Gait Ambulation Distance (feet) 30 Ambulation Assistive Device Rolling Walker Ambulation Ability Contact Guard/Hand Hold Balance Ability to Arise Able, uses arms to help Sitting Balance Steady, safe Standing Balance Steady, wide stance Dynamic Sitting Balance Ability Good Dynamic Standing Balance Ability Good Transfers Bed Transfer Ability Supervision/Stand by Sit to Stand Bed Transfer Ability Contact Guard/Hand Hold Rehab PT IP prob,goals,plan Problems Date of Evaluation: 10/31/24 PT IP Problems Bed Mobility,Transfers,Gait, Balance,Safety Rehab Potential Rehab Potential Good Equipment Needs Assistive Devices Rolling / Wheeled Walker Plan PT Intervention Plan Bed Mobility,Transfers,Gait, Balance,Safety,Therapeutic Exercise Other Intervention Plan 1-2 times PT Plan Frequency Daily Duration LOS Discharge Goals Bed Transfer Ability Independent Sit to Stand Chair Transfer Ability Supervision/Stand by Ambulation Assistive Device Rolling Walker Ambulation Distance (feet) 50 Discharge Plan PT Discharge Plan Initial physical therapy evaluation performed. Patient presents below baseline at this time in functional mobility, transfers, gait, and strength. Pt would benefit from skilled PT while at [facility] to prevent further functional decline and maximize safety with mobility. Pt may be safe to d/c home if son can provide assistance as needed. Though pt able to ambulate and stand with supervision/CGA, pt displayed impaired endurance, and required VCs for hand placement and RW proximity. Therefore, PT is concerned for pt returning home alone. If pt does not improve functionally (improved endurance, balance, and safety ) while at [facility] or not able to secure supervision/assistance as home, PT recommending rehab placement to address deficits . Eval Complexity Eval Charge Codes 90400 - Moderate Complexity PHYSICIAN CERTIFICATION: I certify the specified therapy services for Douglas Hughes are required, authorized, and reviewed every 30 days.
--- NOTE | 2024-07-25 10:25 | HMH.OTEV ---
OT Inpatient Evaluation Rehab OT IP Evaluation Start: 07/25/24 08:10 Freq: ONCE Status: Active Protocol: Document 07/25/24 09:51 ROBERT (Rec: 07/25/24 10:25 ROBERT [id number]) Rehab OT IP Assessment Subjective History Douglas Hughes is a 89-year- old male with a medical history significant for CABG x3, hypertension, BPH who presents with 1 month onset of weakness, exertional dyspnea which has worsened over the past few days including new onset lower extremity edema. He states he has been having on and off exertional dyspnea for a few months, became mildly more prominent over the past month and progressively worsening over the past few days. He also notes that his legs have swollen over the past few days. Denies chest pain, fevers, recent sick contacts. No significant coughing. Vital signs stable on arrival, including oxygen saturation on room air. Workup in the ED significant for VBG pH 7.23, lactic acid 3 .6, creatinine 2.2 (baseline around 1.9), troponin 0.14-0. 12, proBNP 10,100. CXR shows persistent opacity and volume loss at the right base. Given Lasix 60 mg in the ED. Case discussed with ED provider and decision was made to admit patient for new onset decompensated heart failure. Patient lives in 1 story home alone. Ramp to enter. Independent with ADLs and fx'l mobility with usage of rollator until ~2 months ago. Family has been assisting with ADLs as needed. is currently at [place] for nursing and medical care. Subjective I just try to get up. Instructed Patient on proper hand and foot placement to complete bed mobility from supine->sit @ EOB-> stand x2 with usage of RW with needing Min A x2. Patient required Max A for LB drsg and radha hygiene due to having diarrhea . Patient maneuver throughout environment with RW ~25ft with Min A. Left Patient sitting upright in bed with needs met. Objective Patient Orientation Person,Name,Age,Birthday,Year Right Upper Extremity Gross ROM WFL Left Upper Extremity Gross ROM WFL Bed Mobility bed mobility - supine/sit Assist Level Minimal x 1 (25% assist) Transfer Training Sit/Stand Transfer Assist Level Minimal x 1 (25% assist) Chair Transfer Ability Minimal x 1 (25% assist) Chair Transfer Technique Sit to/from Ambulatory Chair Transfer Assistive Devices None Lower Body Dressing Ability Maximum Assistance Rehab OT IP prob,goals,plan Problems Date of Evaluation: 07/25/24 OT IP Problems Bed Mobility,Transfers,Balance ,Self care,Safety Rehab Potential Rehab Potential Good Equipment Needs Assistive Devices Rolling / Wheeled Walker Plan OT intervention Plan Bed Mobility,Transfers,Balance ,Self care,Safety,Therapeutic Exercise OT Plan Frequency Daily Duration LOS Discharge Goals Bed Mobility Ability Assistance x1 Sit to Stand Chair Transfer Ability Contact Guard/Hand Hold Chair Transfer Ability Contact Guard/Hand Hold Chair Transfer Technique Sit to/from Ambulatory Chair Transfer Assistive Devices Rolling Walker Lower Body Dressing Ability Moderate Assistance Discharge Plan OT Discharge Plan Recommend patient to be d/c to rehabilitation. Patient is requiring increase assistance for ADLs and fx'l mobility at home from family. Patient would benefit from rehab in order to regain overall strength and improve balance to decrease fall risk. Eval Complexity Eval Charge Codes 00481 - Low Complexity PHYSICIAN CERTIFICATION: I certify the specified therapy services for Douglas Hughes are required, authorized, and reviewed every 30 days.
[2024-07-25] MEDS: LORazepam 1MG TABLET 2 MG PO (11:58)
--- NOTE | 2024-07-25 12:18 | PC.NURSE ---
PVR OF 28 ml.
--- NOTE | 2024-07-25 14:04 | P.CONCA_ITS ---
History of Present Illness History of Present Illness Consult date: 07/25/24 Requesting physician: Efren Rodas Consult reason: congestive heart failure Chief complaint: SOA, weakness History of present illness: 89 yo WM with hx of CAD s/p CABG 1996, followed by [facility] - last visit 1 mo ago everything was fine. Pt states 2 weeks ago developed worsening BORREGO, orthopnea, LE edema, productive cough. Came to ED for evaluation and noted to have lactic acid 3.6, Cre 2.2, Trop 0.14, 0.12, ProBNP 10k, CXR - persistant opacity and vol loss , EKG - SR, NSST. Pt admitted overnight for observation and medical management. ECHO here shows EF 50%, mildly reduced RV function, biatrial dilation. Pt found to be COVID positive. Started on Lasix 40mg BID, no significant urine output yet. [facility] Disclaimer: The information contained in this section may have been updated after the patient was seen, as this information can be updated by other users. Medical History Thrombocytopenia Kidney failure Primary osteoarthritis, right shoulder Primary generalized (osteo)arthritis Constipation Atherosclerotic heart disease of [place] coronary artery without angina pectoris HTN (hypertension) GERD (gastroesophageal reflux disease) HLD (hyperlipidemia) Family History Other Unknown family medical history Social History Smoking Status: Former smoker alcohol intake: never substance use type: denies use current occupational status: retired Travel in the last 8 weeks: None Review of Systems Constitutional Constitutional: Denies fatigue and Denies weakness Eyes Eyes: Denies loss of vision ENT Ears, Nose, Mouth, and Throat: Denies hearing loss and Denies vertigo *Cardiovascular Cardiovascular: Denies chest pain, Denies dyspnea and Denies syncope *Respiratory Respiratory: Denies cough and Denies dyspnea *Gastrointestinal Gastrointestinal: Denies change in stool character, Denies nausea and Denies vomiting *Genitourinary Genitourinary: Denies difficulty urinating *Musculoskeletal Musculoskeletal: Denies muscle weakness Integumentary/Breasts Skin/Breast: Denies changing lesions *Neurologic Neurologic: Denies loss of vision, Denies syncope, Denies vertigo and Denies weakness Endocrine Endocrine: Denies fatigue Exam Data for Last 24 hours Vital signs and Labs for Last 24 Hours: Temp Pulse Resp BP Pulse Ox O2 Del Method 97.7 F 78 20 148/66 H 92 L Room Air 07/25/24 12:00 07/25/24 12:00 07/25/24 12:00 07/25/24 12:00 07/25/24 12:00 07/25/24 13:49 Laboratory Results - last 24 hr 07/24/24 13:07: VBG pH 7.23 L, VBG pCO2 45.1, VBG pO2 49.4 H, VBG HCO3 18.6 L, VBG Total CO2 20.0 L, VBG O2 Saturation 77.2 H, VBG Base Excess -8.9 L, VBG Lactic Acid 3.6 H 07/24/24 16:43: Troponin I 0.12 H 07/24/24 19:16: Lactate 2.2 H, Troponin I 0.12 H 07/24/24 20:36: Chlamy pneumoniae PCR Not detected, Adenovirus (PCR) Not detected, B. pertussis DNA (PCR) Not detected, Coronavirus OC43 (PCR) Not detected, Coronavirus HKU1 (PCR) Not detected, Coronavirus 229E (PCR) Not detected, SARS-CoV-2 (PCR) Detected A, Coronavirus NL63 (PCR) Not detected, Human Metapneumovir PCR Not detected, Influenza A (H1) PCR Not detected, Influ A (H1N1/09) PCR Not detected, Influenza A (H3) PCR Not detected, Influenza Type A (PCR) Not detected, Influenza Type B (PCR) Not detected, M. pneumoniae (PCR) Not detected, Parainfluenza 1 (PCR) Not detected, Parainfluenza 2 (PCR) Not detected, Parainfluenza 3 (PCR) Not detected, Parainfluenza 4 (PCR) Not detected, RSV (PCR) Not detected, Entero/Rhino (PCR) Not detected 07/24/24 21:46: Lactate 1.2 07/25/24 05:43: WBC 4.1 L D, RBC 3.03 L, Hgb 10.2 L, Hct 31.2 L, MCV 103.0 H, MCH 33.6 H, MCHC 32.6, RDW 12.5, Plt Count 123 L, MPV 10.4, Neut % (Auto) 84.7 H , Lymph % (Auto) 10.8, [place] % (Auto) 4.2, Eos % (Auto) 0.1, Baso % (Auto) 0.2, Neut # (Auto) 3.4, Lymph # (Auto) 0.4 L, [place] # (Auto) 0.2, Eos # (Auto) 0.0, Baso # (Auto) 0.0, Sodium 139, Potassium 4.4, Chloride 109 H, Carbon Dioxide 18 L, Anion Gap 16.4 H, BUN 53 H, Creatinine 2.30 H, Estimated Creat Clear 31, Estimated GFR 27 L, Est GFR ( Amer) 33 L, Glucose 192 H D, Hemoglobin A1c 5.8, Calcium 7.9 L, Magnesium 1.0 L, Total Bilirubin 0.4, AST 25, ALT 15, Alkaline Phosphatase 66, Total Protein 5.9 L, Albumin 3.3 L, Globulin 2.6, Albumin/Globulin Ratio 1.3, Triglycerides 57, Cholesterol 88 L, LDL Cholesterol Direct 32.25 L, VLDL Cholesterol 11, HDL Cholesterol 41, Cholesterol/HDL Ratio 2.1, TSH 1.15 I & O for Last 24 hours: Intake & Output 07/22/24 07/23/24 07/24/24 07/25/24 23:59 23:59 23:59 23:59 Intake Total 240 / 490 1430 / 1430 Output Total 0 / 0 0 / 0 Balance 240 / 490 1430 / 1430 Weight 218 lb 6 oz 220 lb 11.2 oz Microbiology Reports for the Last 24 Hours: Microbiology 07/24/24 13:45 Blood Blood Culture - Preliminary NO GROWTH AFTER 24 HOURS Constitutional Constitutional: no acute distress and cooperative *Routine HEENT Exam Eye: Present PERRL *Routine Respiratory Exam Respiratory: Present CTA bilaterally; Absent accessory muscle use, wheezes or crackles Comments: bibasilar wheeze and reduced breath sounds *Routine Cardiovascular Exam Cardiovascular: Present RRR, Normal S1 and Normal S2; Absent murmur, gallop or rubs *Routine Abdominal Exam Abdominal: Present soft; Absent tenderness *Routine Extremities Exam Extremities: Present pulses intact; Absent cyanosis or edema *Routine Skin Exam Skin: Present intact; Absent erythema or wounds *Routine Neurological Exam Neurological: Present alert and oriented X3 Routine Psychiatric Exam Psychiatric: Present cooperative Meds Home Medications and Allergies Home Medications ?Medication ?Instructions ?Recorded ?Confirmed ?Type aspirin 81 mg tablet,delayed 81 mg PO DAILY 11/27/18 07/24/24 History release (Adult Low Dose Aspirin) hydrochlorothiazide 25 mg tablet 25 mg PO DAILY #90 tabs 03/05/24 07/24/24 Rx atorvastatin 40 mg tablet 40 mg PO DAILY #90 tabs 03/20/24 07/24/24 Rx isosorbide dinitrate 30 mg tablet 30 mg PO BID #60 tabs 04/18/24 07/24/24 Rx cyanocobalamin (vitamin B-12) 1,000 mcg PO DAILY #100 caps 04/19/24 07/24/24 Rx 1,000 mcg capsule hydrocodone 5 mg-acetaminophen 325 1 tab PO DAILY #30 tabs 07/15/24 07/24/24 Rx mg tablet amoxicillin 875 mg-potassium 1 tab PO BID 7 days #14 tabs 07/23/24 07/24/24 Rx clavulanate 125 mg tablet azithromycin 250 mg tablet 250 mg PO DAILY 6 days #6 tabs 07/23/24 07/24/24 Rx doxazosin 4 mg tablet 4 mg PO DAILY 07/24/24 07/24/24 History esomeprazole magnesium 40 mg 40 mg PO DAILY 07/24/24 07/24/24 History capsule,delayed release finasteride 5 mg tablet 5 mg PO DAILY 07/24/24 07/24/24 History furosemide 40 mg tablet 40 mg PO DAILYP PRN Swelling 07/24/24 07/24/24 History lisinopril 20 mg tablet 20 mg PO DAILY 07/24/24 07/24/24 History metoprolol succinate 50 mg 50 mg PO DAILY 07/24/24 07/24/24 History tablet,extended release 24 hr New Prescriptions to Start Prescriptions: Allergies Allergy/AdvReac Type Severity Reaction Status Date / Time No Known Allergies Allergy Verified 06/18/24 10:04 Assessment and Plan *Assessment and plan (1) Pneumonia due to COVID-19 virus: Status: Acute Category: Medical Code(s): U07.1 - COVID-19; J12.82 - Pneumonia due to coronavirus disease 2019 (2) New onset of congestive heart failure: Status: Acute Category: Medical Code(s): I50.9 - Heart failure, unspecified (3) Coronary artery disease: Status: Acute Category: Medical Code(s): I25.10 - Atherosclerotic heart disease of [place] coronary artery without angina pectoris Plan Acute on chronic HFpEF - normal EF here, mild RV dysfunction and biatrial dilation - change Lasix 40mg BID to Bumex 2mg q8h due to poor response to lasix thus far - strict I/O - no SGLT-2 due to acute infection CAD, [place] s/p CABG 1996 - CCS = 0 - EKG SR, no acute ischemia - cont ASA, Statin, BB, Nitrates COVID PNA - plans per primary service
--- NOTE | 2024-07-25 14:24 | PC.NURSE ---
Aox 4, up with assistance times one- two, on RA sats in the 90's, covid +, sputum sent, 20g R AC SL, sent down for MRI of the head.
[2024-07-25] MEDS: BUMETANIDE 1 MG TABLET 2 MG PO ×2 (14:38→22:10)
--- NOTE | 2024-07-25 15:39 | ECG_ITS ---
APPROVED REPORT Exam: Resting ECG HR:74 bpm ECG Measurements Heart Rate 74 AXES QRSd 107 QRS 2 QT 411 T -17 QTc 438 Conclusion SUPRAVENTRICULAR RHYTHM MINIMAL ST DEPRESSION [0.025+ mV ST DEPRESSION] ABNORMAL RHYTHM ECG UNCONFIRMED REPORT Electronically signed by : Eusebio Ocampo MD 07/26/2024 09:04:13
[2024-07-25 18:05] LABS: Chloride 105 mmol/L (98-107); Sodium 137 mmol/L (136-145)
[2024-07-25 18:06] LABS: Blood Urea Nitrogen 56 mg/dl (9-20); Carbon Dioxide 22 mmol/L (22.0-30.0); Creatinine Clearance Estimated 29 mL/min (50-200); Estimated Glomerular Filt Rate 24 ml/min (>60); GFR (African American) 30 ML/MIN (>60)
[2024-07-25 18:07] LABS: Calcium 8.3 mg/dl (8.4-10.2); Glucose 171 mg/dl (74-100); Magnesium 2.1 mg/dl (1.6-2.3)
[2024-07-25] MEDS: ATORVASTATIN 40MG TABLET 40 MG PO (20:13)
[2024-07-25] MEDS: PANTOPRAZOLE 40MG TABLET 40 MG PO (20:13)
[2024-07-25] MEDS: ACETAMINOPHEN 325MG TAB 650 MG PO (22:11)
--- NOTE | 2024-07-25 22:33 | EXP.PN ---
Subjective *Date: 07/31/24 *Time: 16:24 Exam Data for Last 24 hours Vital signs and Labs for Last 24 Hours: Temp Pulse Resp BP Pulse Ox O2 Del Method 98.4 F 74 16 107/51 L 96 Room Air 07/25/24 20:00 07/25/24 20:00 07/25/24 20:00 07/25/24 20:00 07/25/24 20:00 07/25/24 20:00 Laboratory Results - last 24 hr 07/24/24 20:36: Chlamy pneumoniae PCR Not detected, Adenovirus (PCR) Not detected, B. pertussis DNA (PCR) Not detected, Coronavirus OC43 (PCR) Not detected, Coronavirus HKU1 (PCR) Not detected, Coronavirus 229E (PCR) Not detected, SARS-CoV-2 (PCR) Detected A, Coronavirus NL63 (PCR) Not detected, Human Metapneumovir PCR Not detected, Influenza A (H1) PCR Not detected, Influ A (H1N1/09) PCR Not detected, Influenza A (H3) PCR Not detected, Influenza Type A (PCR) Not detected, Influenza Type B (PCR) Not detected, M. pneumoniae (PCR) Not detected, Parainfluenza 1 (PCR) Not detected, Parainfluenza 2 (PCR) Not detected, Parainfluenza 3 (PCR) Not detected, Parainfluenza 4 (PCR) Not detected, RSV (PCR) Not detected, Entero/Rhino (PCR) Not detected 07/25/24 05:43: WBC 4.1 L D, RBC 3.03 L, Hgb 10.2 L, Hct 31.2 L, MCV 103.0 H, MCH 33.6 H, MCHC 32.6, RDW 12.5, Plt Count 123 L, MPV 10.4, Neut % (Auto) 84.7 H, Lymph % (Auto) 10.8, [place] % (Auto) 4.2, Eos % (Auto) 0.1, Baso % (Auto) 0.2, Neut # (Auto) 3.4, Lymph # (Auto) 0.4 L, [place] # (Auto) 0.2, Eos # (Auto) 0.0, Baso # (Auto) 0.0, Sodium 139, Potassium 4.4, Chloride 109 H, Carbon Dioxide 18 L, Anion Gap 16.4 H, BUN 53 H, Creatinine 2.30 H, Estimated Creat Clear 31, Estimated GFR 27 L, Est GFR ( Amer) 33 L, Glucose 192 H D, Hemoglobin A1c 5.8, Calcium 7.9 L, Magnesium 1.0 L, Total Bilirubin 0.4, AST 25, ALT 15, Alkaline Phosphatase 66, Total Protein 5.9 L, Albumin 3.3 L, Globulin 2.6, Albumin/Globulin Ratio 1.3, Triglycerides 57, Cholesterol 88 L, LDL Cholesterol Direct 32.25 L, VLDL Cholesterol 11, HDL Cholesterol 41, Cholesterol/HDL Ratio 2.1, TSH 1.15 07/25/24 17:19: Sodium 137, Potassium 5.0, Chloride 105, Carbon Dioxide 22, Anion Gap 15.0, BUN 56 H, Creatinine 2.50 H, Estimated Creat Clear 29, Estimated GFR 24 L, Est GFR ( Amer) 30 L, Glucose 171 H, Calcium 8.3 L, Magnesium 2.1 D I & O for Last 24 hours: Intake & Output 07/22/24 07/23/24 07/24/24 07/25/24 23:59 23:59 23:59 23:59 Intake Total 240 / 490 1790 / 1790 Output Total 0 / 0 600 / 600 Balance 240 / 490 1190 / 1190 Weight 99.053 kg 100.108 kg Microbiology Reports for the Last 24 Hours: Microbiology 07/25/24 11:44 Sputum - Expectorated Sputum Gram Stain - Preliminary 07/24/24 14:16 Blood Blood Culture - Preliminary NO GROWTH AFTER 24 HOURS 07/24/24 13:45 Blood Blood Culture - Preliminary NO GROWTH AFTER 24 HOURS Constitutional Constitutional: no acute distress and cooperative *Routine HEENT Exam Eye: Present PERRL *Routine Respiratory Exam Respiratory: Present wheezes; Absent accessory muscle use or crackles *Routine Cardiovascular Exam Cardiovascular: Present RRR, Normal S1 and Normal S2; Absent murmur, gallop or rubs Comments: 1+ bilateral lower extremity pitting edema *Routine Abdominal Exam Abdominal: Present soft; Absent tenderness *Routine Extremities Exam Extremities: Present pulses intact; Absent cyanosis or edema *Routine Skin Exam Skin: Present intact; Absent erythema or wounds *Routine Neurological Exam Neurological: Present alert and oriented X3 Routine Psychiatric Exam Psychiatric: Present cooperative Assessment and Plan *Assessment and plan (1) Generalized weakness: Status: Resolved Category: Medical Code(s): R53.1 - Weakness (2) New onset of congestive heart failure: Status: Acute Category: Medical Code(s): I50.9 - Heart failure, unspecified (3) HTN (hypertension): Status: Acute Category: Medical Code(s): I10 - Essential (primary) hypertension (4) DANIEL (acute kidney injury): Status: Resolved Category: Medical Code(s): N17.9 - Acute kidney failure, unspecified (5) CKD (chronic kidney disease): Status: Acute Category: Medical Code(s): N18.9 - Chronic kidney disease, unspecified Plan Douglas Hughes is a 89-year-old male with a medical history significant for CABG x3, hypertension, BPH who presents with 1 month onset of weakness, exertional dyspnea which has worsened over the past few days including new onset lower extremity edema. He states he has been having on and off exertional dyspnea for a few months, became mildly more prominent over the past month and progressively worsening over the past few days. He also notes that his legs have swollen over the past few days. Denies chest pain, fevers, recent sick contacts. No significant coughing. Vital signs stable on arrival, including oxygen saturation on room air. Workup in the ED significant for VBG pH 7.23, lactic acid 3.6, creatinine 2.2 (baseline around 1.9), troponin 0.14-0.12, proBNP 10,100. CXR shows persistent opacity and volume loss at the right base. Given Lasix 60 mg in the ED. Case discussed with ED provider and decision was made to admit patient for new onset decompensated heart failure. #Acute HFpEF exacerbation #Exertional dyspnea #Lower extremity pitting edema #History of CABG ? Initial BNP 10,100, troponins 0.14-0.12. Denies chest pain, and current shortness of breath. ? Significant peripheral pitting edema 3+. No significant pulmonary edema. ? Cardiology consulted, Transitioned to Bumex 2mg TID today given poor response from IV Lasix. ? Continue home aspirin 81 mg, atorvastatin 40 mg, metoprolol succinate 50 mg. ? ECHO shows LVEF 50%, mildly dilated and reduced RV function. ? Continuous cardiac telemetry. ? A1c, TSH, lipid panel normal. ? Strict MARY's, fluid/salt restriction. Bed elevation. #Headache - CT head revealed interval development of a 15 x 9 mm indeterminate low-density lesion in the right basal ganglion. - However, MRI did not corrobate this finding. - Headache also resolved. #DANIEL on CKD stage III ? Initial creatinine 2.2, baseline around 1.9. In the setting of fluid overload. Diuresis as above. ? Continue monitor renal function. #Metabolic acidosis #Lactic acidosis ? Initial lactic acid 3.6. In the setting of volume overload, third spacing. ? Diuresis as above. Continue to follow lactic acid. #Hypertension ? Resume home Isordil, lisinopril, hydrochlorothiazide once appropriate for BP. #BPH ? Resume home doxazosin, finasteride. #GERD ? Resume home PPI.
[2024-07-25] MEDS: IPRATROPIUM/ALBUTEROL 3 ML NEB IH (23:15)
[2024-07-26] VITALS: BP 139/75; PULSE 60; PULSE 71; RESP 14; TEMP 36.4; O2SAT 94
[2024-07-26 00:05] LABS: VBG Base Excess -3.8 mmol/L (-2.4-2.3); VBG HCO3 22.2 mmol/L (23-30); VBG PCO2 43.6 mmol/L (35-51); VBG PH 7.33 mmol/L (7.31-7.41); VBG PO2 39.2 mmol/L (28-40); VBG Total CO2 23.6 mmol/L (23-27)
[2024-07-26 04:00] VITALS: BP 120/61; PULSE 70; PULSE 74; RESP 16; TEMP 36.9; O2SAT 96; BMI 31.5
[2024-07-26] MEDS: ACETAMINOPHEN 325MG TAB 650 MG PO (04:27)
--- NOTE | 2024-07-26 05:49 | PC.NURSE ---
Lab called to report a positive blood culture of gram positive cocci. Provider notified. No new orders given at this time.
[2024-07-26] MEDS: BUMETANIDE 1 MG TABLET 2 MG PO (06:30)
[2024-07-26 06:46] LABS: Basophils % 0.1 % (0.1-2.0); Lymphocytes # 0.7 K/mm3 (0.7-4.5); Lymphocytes % 8.7 % (10-50); Mean Corpuscular HGB Conc 32.4 g/dL (31.8-35.4); Mean Corpuscular Hemoglobin 33.1 pg (27.0-31.2); Mean Corpuscular Volume 102.4 fl (80-94); Mean Platelet Volume 10.3 fl (7.4-10.4); Monocytes # 0.6 K/mm3 (0.1-1.0); Monocytes % 7.1 % (1.7-9.3); Neutrophils # 6.8 K/mm3 (1.8-7.8); Neutrophils % 84.1 % (37.0-80.0); Platelet Count 129 K/mm3 (142-424); Red Blood Count 3.02 M/mm3 (4.60-6.20); Red Cell Distribution Width 12.7 % (11.5-17.5); White Blood Count 8.1 K/mm3 (4.8-10.8)
[2024-07-26 07:02] LABS: Alanine Aminotransferase 14 U/L (12-78); Albumin Level 3.1 g/dl (3.5-5.0); Albumin/Globulin Ratio 1.2 (1.1-1.8); Alkaline Phosphatase 59 U/L (38-126); Anion Gap 12.7 mEq/L (5-15); Aspartate Amino Transferase 25 U/L (17-59); Bilirubin,Total 0.5 mg/dl (0.2-1.3); Blood Urea Nitrogen 62 mg/dl (9-20); Calcium 8.1 mg/dl (8.4-10.2); Carbon Dioxide 22 mmol/L (22.0-30.0); Chloride 106 mmol/L (98-107); Creatinine Clearance Estimated 32 mL/min (50-200); Estimated Glomerular Filt Rate 27 ml/min (>60); GFR (African American) 33 ML/MIN (>60); Globulin 2.5 g/dL (1.3-3.2); Glucose 121 mg/dl (74-100); Magnesium 1.8 mg/dl (1.6-2.3); Potassium 4.7 mmoL/L (3.5-5.1); Sodium 136 mmol/L (136-145); Total Protein,Serum 5.6 g/dl (6.3-8.2)
[2024-07-26 08:00] VITALS: BP 116/62; PULSE 60; PULSE 78; RESP 16; TEMP 36.6; O2SAT 94
[2024-07-26] MEDS: METOPROLOL SUCCINATE XL 50MG TABLET 50 MG PO (08:29)
[2024-07-26] MEDS: DOXAZOSIN 4MG TAB 4 MG PO (08:29)
[2024-07-26] MEDS: FINASTERIDE 5MG TABLET 5 MG PO (08:30)
[2024-07-26] MEDS: ASPIRIN EC 81MG TABLET 81 MG PO (08:30)
[2024-07-26] MEDS: DAPAGLIFLOZIN PROPANEDIOL 10 MG TABLET PO (11:58)
[2024-07-26] MEDS: BUMETANIDE 1MG/4ML VIAL 2 MG IV (11:58)
[2024-07-26 12:00] VITALS: BP 139/55; PULSE 65; PULSE 80; RESP 16; TEMP 36.4; O2SAT 94
[2024-07-26 12:10] VITALS: BMI 31.4
--- NOTE | 2024-07-26 13:32 | P.PN_ITS ---
Subjective Subjective Date: 07/26/24 Time: 09:30 Interval history: Improved diuresis overnight per patient. I/os still not accurately accounted for. Patient still has pitting edema tristan high bilaterally and bibasilar wheezing. Patient states he will be looking to go to [facility] when cleared for discharge. Exam Data for Last 24 hours Vital signs and Labs for Last 24 Hours: Temp Pulse Resp BP Pulse Ox O2 Del Method 97.6 F 65 16 139/55 L 94 L Room Air 07/26/24 12:00 07/26/24 12:00 07/26/24 12:00 07/26/24 12:00 07/26/24 12:00 07/26/24 12:15 Laboratory Results - last 24 hr 07/25/24 16:07: VBG pH 7.33, VBG pCO2 43.6, VBG pO2 39.2, VBG HCO3 22.2 L, VBG Total CO2 23.6, VBG O2 Saturation 69.0, VBG Base Excess -3.8 L, VBG Lactic Acid 2.0 07/25/24 17:19: Sodium 137, Potassium 5.0, Chloride 105, Carbon Dioxide 22, Anion Gap 15.0, BUN 56 H, Creatinine 2.50 H, Estimated Creat Clear 29, Estimated GFR 24 L, Est GFR ( Amer) 30 L, Glucose 171 H, Calcium 8.3 L, Magnesium 2.1 D 07/26/24 06:08: WBC 8.1 D, RBC 3.02 L, Hgb 10.0 L, Hct 31.0 L, MCV 102.4 H, MCH 33.1 H, MCHC 32.4, RDW 12.7, Plt Count 129 L, MPV 10.3, Neut % (Auto) 84.1 H, Lymph % (Auto) 8.7 L, [place] % (Auto) 7.1, Eos % (Auto) 0.0 L, Baso % (Auto) 0.1, Neut # (Auto) 6.8, Lymph # (Auto) 0.7, [place] # (Auto) 0.6, Eos # (Auto) 0.0, Baso # (Auto) 0.0, Sodium 136, Potassium 4.7, Chloride 106, Carbon Dioxide 22, Anion Gap 12.7, BUN 62 H, Creatinine 2.30 H, Estimated Creat Clear 32, Estimated GFR 27 L, Est GFR ( Amer) 33 L, Glucose 121 H D, Calcium 8.1 L, Magnesium 1.8 D, Total Bilirubin 0.5, AST 25, ALT 14, Alkaline Phosphatase 59, Total Protein 5.6 L, Albumin 3.1 L, Globulin 2.5, Albumin/Globulin Ratio 1.2 I & O for Last 24 hours: Intake & Output 07/23/24 07/24/24 07/25/24 07/26/24 23:59 23:59 23:59 23:59 Intake Total 240 / 490 1790 / 2090 780 / 780 Output Total 0 / 0 1000 / 1000 500 / 500 Balance 240 / 490 790 / 1090 280 / 280 Weight 218 lb 6 oz 220 lb 11.2 oz 224 lb 13.944 oz Microbiology Reports for the Last 24 Hours: Microbiology 07/25/24 11:44 Sputum - Expectorated Sputum Gram Stain - Preliminary 07/25/24 11:44 Sputum - Expectorated Sputum Sputum Culture - Preliminary 07/24/24 14:16 Blood Blood Culture - Preliminary 07/24/24 13:45 Blood Blood Culture - Preliminary NO GROWTH AFTER 24 HOURS Constitutional Constitutional: no acute distress and cooperative *Routine HEENT Exam Eye: Present PERRL *Routine Respiratory Exam Respiratory: Present wheezes; Absent accessory muscle use or crackles *Routine Cardiovascular Exam Cardiovascular: Present RRR, Normal S1 and Normal S2; Absent murmur, gallop or rubs Comments: 1+ bilateral lower extremity pitting edema *Routine Abdominal Exam Abdominal: Present soft; Absent tenderness *Routine Extremities Exam Extremities: Present pulses intact; Absent cyanosis or edema *Routine Skin Exam Skin: Present intact; Absent erythema or wounds *Routine Neurological Exam Neurological: Present alert and oriented X3 Routine Psychiatric Exam Psychiatric: Present cooperative Progress Note: A&P Assessment and plan (1) Generalized weakness: Status: Acute (2) New onset of congestive heart failure: Status: Acute (3) HTN (hypertension): Status: Acute (4) DANIEL (acute kidney injury): Status: Acute (5) CKD (chronic kidney disease): Status: Acute (6) Pneumonia due to COVID-19 virus: Status: Acute Assessment and Plan Assessment and Plan for All Diagnoses:: Acute on chronic HFpEF - normal EF here, mild RV dysfunction and biatrial dilation - change Lasix 40mg BID to Bumex 2mg q8h due to poor response to lasix thus far - strict I/O - no SGLT-2 due to acute infection 07/26: improving diuresis on Bumex. Monitor daily labs and I/O. CAD, [place] s/p CABG 1996 - CCS = 0 - EKG SR, no acute ischemia - cont ASA, Statin, BB, Nitrates COVID PNA - plans per primary service Pt likely here until Monday as he's going to SNF post discharge.
--- NOTE | 2024-07-26 15:09 | P.DS_ITS ---
General Admission date:: 07/24/24 HPI HPI HPI: Douglas Hughes is a 89-year-old male with a medical history significant for CABG x3, hypertension, BPH who presents with 1 month onset of weakness, exertional dyspnea which has worsened over the past few days including new onset lower extremity edema. He states he has been having on and off exertional dyspnea for a few months, became mildly more prominent over the past month and progressively worsening over the past few days. He also notes that his legs have swollen over the past few days. Denies chest pain, fevers, recent sick contacts. No significant coughing. Vital signs stable on arrival, including oxygen saturation on room air. Workup in the ED significant for VBG pH 7.23, lactic acid 3.6, creatinine 2.2 (baseline around 1.9), troponin 0.14-0.12, proBNP 10,100. CXR shows persistent opacity and volume loss at the right base. Given Lasix 60 mg in the ED. Case discussed with ED provider and decision was made to admit patient for new onset decompensated heart failure. Hospital Course Hospital Course Hospital Course: Douglas Hughes is a 89-year-old male with a medical history significant for CABG x3, hypertension, BPH who presents with 1 month onset of weakness, exertional dyspnea which has worsened over the past few days including new onset lower extremity edema. He states he has been having on and off exertional dyspnea for a few months, became mildly more prominent over the past month and progressively worsening over the past few days. He also notes that his legs have swollen over the past few days. Denies chest pain, fevers, recent sick contacts. No significant coughing. Vital signs stable on arrival, including oxygen saturation on room air. Workup in the ED significant for VBG pH 7.23, lactic acid 3.6, creatinine 2.2 (baseline around 1.9), troponin 0.14-0.12, proBNP 10,100. CXR shows persistent opacity and volume loss at the right base. Given Lasix 60 mg in the ED. Case discussed with ED provider and decision was made to admit patient for new onset decompensated heart failure. #Acute new onset decompensated heart failure, unknown type #Exertional dyspnea #Lower extremity pitting edema #History of CABG ? Initial BNP 10,100, troponins 0.14-0.12. Denies chest pain, and current shortness of breath. ? Significant peripheral pitting edema 3+. No significant pulmonary edema. ? PO Bumex 2 mg every 8 hours. Has had good diuresis with this. Continues to have 2+ pitting edema, but improved since admission. Saturating appropriate on room air. ? ECHO reveals normal biventricular function. LVEF 50%. ? A1c, TSH, lipid panel normal. ? Discharged with Bumex 2 mg every 8 hours. Can be weaned to twice daily then daily as edema improves. Follow-up BMP in 3 days. ? Discharged with Farxiga 10 mg. ? Continue home aspirin 81 mg, atorvastatin 40 mg, metoprolol succinate 50 mg. #DANIEL on CKD stage III ? Baseline around 2.0, currently 2.3 in the setting of cardiorenal third spacing. ? Continue diuresis as above. #Metabolic acidosis #Lactic acidosis ? Resolved with diuresis. #Hypertension ?Discontinue home Isordil, lisinopril, hydrochlorothiazide as pressures have been soft in the low SBP 100s with Bumex diuresis. #BPH ? Resume home doxazosin, finasteride. #GERD ? Resume home PPI. Exam Data for Last 24 hours Vital signs and Labs for Last 24 Hours: Temp Pulse Resp BP Pulse Ox O2 Del Method 97.6 F 65 16 139/55 L 94 L Room Air 07/26/24 12:00 07/26/24 12:00 07/26/24 12:00 07/26/24 12:00 07/26/24 12:00 07/26/24 13:37 Laboratory Results - last 24 hr 07/25/24 16:07: VBG pH 7.33, VBG pCO2 43.6, VBG pO2 39.2, VBG HCO3 22.2 L, VBG Total CO2 23.6, VBG O2 Saturation 69.0, VBG Base Excess -3.8 L, VBG Lactic Acid 2.0 07/25/24 17:19: Sodium 137, Potassium 5.0, Chloride 105, Carbon Dioxide 22, Anion Gap 15.0, BUN 56 H, Creatinine 2.50 H, Estimated Creat Clear 29, Estimated GFR 24 L, Est GFR ( Amer) 30 L, Glucose 171 H, Calcium 8.3 L, Magnesium 2.1 D 07/26/24 06:08: WBC 8.1 D, RBC 3.02 L, Hgb 10.0 L, Hct 31.0 L, MCV 102.4 H, MCH 33.1 H, MCHC 32.4, RDW 12.7, Plt Count 129 L, MPV 10.3, Neut % (Auto) 84.1 H, Lymph % (Auto) 8.7 L, [place] % (Auto) 7.1, Eos % (Auto) 0.0 L, Baso % (Auto) 0.1, Neut # (Auto) 6.8, Lymph # (Auto) 0.7, [place] # (Auto) 0.6, Eos # (Auto) 0.0, Baso # (Auto) 0.0, Sodium 136, Potassium 4.7, Chloride 106, Carbon Dioxide 22, Anion Gap 12.7, BUN 62 H, Creatinine 2.30 H, Estimated Creat Clear 32, Estimated GFR 27 L, Est GFR ( Amer) 33 L, Glucose 121 H D, Calcium 8.1 L, Magnesium 1.8 D, Total Bilirubin 0.5, AST 25, ALT 14, Alkaline Phosphatase 59, Total Protein 5.6 L, Albumin 3.1 L, Globulin 2.5, Albumin/Globulin Ratio 1.2 I & O for Last 24 hours: Intake & Output 07/23/24 07/24/24 07/25/24 07/26/24 23:59 23:59 23:59 23:59 Intake Total 240 / 490 1790 / 2090 980 / 980 Output Total 0 / 0 1000 / 1000 500 / 500 Balance 240 / 490 790 / 1090 480 / 480 Weight 99.053 kg 100.108 kg 102 kg Microbiology Reports for the Last 24 Hours: Microbiology 07/24/24 13:45 Blood Blood Culture - Preliminary NO GROWTH AFTER 48 HOURS 07/25/24 11:44 Sputum - Expectorated Sputum Gram Stain - Preliminary 07/25/24 11:44 Sputum - Expectorated Sputum Sputum Culture - Preliminary 07/24/24 14:16 Blood Blood Culture - Preliminary Results Data Completed and Pending Labs on day of discharge: Labs from last 24 hours 07/26/24 07/25/24 07/25/24 06:08 17:19 16:07 WBC 8.1 D RBC 3.02 L Hgb 10.0 L Hct 31.0 L MCV 102.4 H MCH 33.1 H MCHC 32.4 RDW 12.7 Plt Count 129 L MPV 10.3 Neut % (Auto) 84.1 H Lymph % (Auto) 8.7 L [place] % (Auto) 7.1 Eos % (Auto) 0.0 L Baso % (Auto) 0.1 Neut # (Auto) 6.8 Lymph # (Auto) 0.7 [place] # (Auto) 0.6 Eos # (Auto) 0.0 Baso # (Auto) 0.0 VBG pH 7.33 VBG pCO2 43.6 VBG pO2 39.2 VBG HCO3 22.2 L VBG Total CO2 23.6 VBG O2 Saturation 69.0 VBG Base Excess -3.8 L VBG Lactic Acid 2.0 Sodium 136 137 Potassium 4.7 5.0 Chloride 106 105 Carbon Dioxide 22 22 Anion Gap 12.7 15.0 BUN 62 H 56 H Creatinine 2.30 H 2.50 H Estimated Creat Clear 32 29 Estimated GFR 27 L 24 L Est GFR ( Amer) 33 L 30 L Glucose 121 H D 171 H Calcium 8.1 L 8.3 L Magnesium 1.8 D 2.1 D Total Bilirubin 0.5 AST 25 ALT 14 Alkaline Phosphatase 59 Total Protein 5.6 L Albumin 3.1 L Globulin 2.5 Albumin/Globulin Ratio 1.2 Preliminary micro results at discharge 07/24/24 13:45 Blood Culture - Preliminary Blood NO GROWTH AFTER 48 HOURS 07/25/24 11:44 Gram Stain - Preliminary Sputum - Expectorated Sputum Sputum Culture - Preliminary 07/24/24 14:16 Blood Culture - Preliminary Blood DS: Diagnosis Discharge Diagnosis (1) Generalized weakness: Status: Acute Code(s): R53.1 - Weakness (2) New onset of congestive heart failure: Status: Acute Code(s): I50.9 - Heart failure, unspecified (3) HTN (hypertension): Status: Acute Code(s): I10 - Essential (primary) hypertension (4) DANIEL (acute kidney injury): Status: Acute Code(s): N17.9 - Acute kidney failure, unspecified (5) CKD (chronic kidney disease): Status: Acute Code(s): N18.9 - Chronic kidney disease, unspecified (6) Pneumonia due to COVID-19 virus: Status: Acute Code(s): U07.1 - COVID-19; J12.82 - Pneumonia due to coronavirus disease 2019 Meds Home Medications and Allergies Home Medications ?Medication ?Instructions ?Recorded ?Confirmed ?Type aspirin 81 mg tablet,delayed 81 mg PO DAILY 11/27/18 07/24/24 History release (Adult Low Dose Aspirin) atorvastatin 40 mg tablet 40 mg PO DAILY #90 tabs 03/20/24 07/24/24 Rx cyanocobalamin (vitamin B-12) 1,000 mcg PO DAILY #100 caps 04/19/24 07/24/24 Rx 1,000 mcg capsule hydrocodone 5 mg-acetaminophen 325 1 tab PO DAILY #30 tabs 07/15/24 07/24/24 Rx mg tablet doxazosin 4 mg tablet 4 mg PO DAILY 07/24/24 07/24/24 History esomeprazole magnesium 40 mg 40 mg PO DAILY 07/24/24 07/24/24 History capsule,delayed release finasteride 5 mg tablet 5 mg PO DAILY 07/24/24 07/24/24 History metoprolol succinate 50 mg 50 mg PO DAILY 07/24/24 07/24/24 History tablet,extended release 24 hr bumetanide 1 mg tablet 2 mg (2 x 1 mg) PO Q8H 7 days #42 07/26/24 Rx tabs dapagliflozin propanediol 10 mg 10 mg PO DAILY 30 days #30 tabs 07/26/24 Rx tablet (Farxiga) New Prescriptions to Start Prescriptions: bumetanide Efren Rodas dapagliflozin propanediol [Farxiga] Efren Rodas Allergies Allergy/AdvReac Type Severity Reaction Status Date / Time No Known Allergies Allergy Verified 06/18/24 10:04 Discharge Plan Disposition Patient Disposition: [facility] Discharge Order Discharge Orders: Discharge Order (Routine); Ordered 07/26/24 Ordered By: Efren Rodas Follow up Plan Follow up with: Tano Esteban PA [[employer]] - 08/02/24 Prescriptions/Medication Reconciliation: New bumetanide 1 mg Tablet 2 mg PO Q8H 7 Days Qty: 42 0RF dapagliflozin propanediol [Farxiga] 10 mg Tablet 10 mg PO DAILY 30 Days Qty: 30 0RF Continued aspirin [Adult Low Dose Aspirin] 81 mg tablet,delayed release (DR/EC) 81 mg PO DAILY atorvastatin 40 mg tablet 40 mg PO DAILY Qty: 90 1RF cyanocobalamin (vitamin B-12) 1,000 mcg capsule 1,000 mcg PO DAILY Qty: 100 3RF doxazosin 4 mg tablet 4 mg PO DAILY metoprolol succinate 50 mg tablet extended release 24 hr 50 mg PO DAILY esomeprazole magnesium 40 mg capsule,delayed release(DR/EC) 40 mg PO DAILY finasteride 5 mg tablet 5 mg PO DAILY hydrocodone-acetaminophen 5-325 mg tablet 1 tab PO DAILY Qty: 30 0RF Discontinued hydrochlorothiazide 25 mg tablet 25 mg PO DAILY Qty: 90 1RF isosorbide dinitrate 30 mg tablet 30 mg PO BID Qty: 60 2RF Rx Instructions: allow nitrate-free interval of 12-14 hrs per 24-hr period furosemide 40 mg tablet 40 mg PO DAILYP PRN (Reason: Swelling) lisinopril 20 mg tablet 20 mg PO DAILY amoxicillin-pot clavulanate 875-125 mg tablet 1 tab PO BID 7 Days Qty: 14 0RF azithromycin 250 mg tablet 250 mg PO DAILY 6 Days Qty: 6 0RF Rx Instructions: start on day 2 of therapy Problem Reconciliation Problems Reviewed?: Yes Patient Discharge Instructions Patient Instructions: Heart-Healthy Diet, DI for Heart Failure, DI for Acute Kidney Injury, DI for Heart Failure Exacerbations, DI for COVID-19 (Suspected or Confirmed ) Print Language: Guatemalan Providers Primary Care Provider: Oseas Kemp Admit Provider: Efren Rodas Attending Provider: Efren Rodas
--- NOTE | 2024-07-26 15:49 | PC.NURSE ---
Report called to Amanda QUINONES at [facility].
[2024-07-26 16:00] VITALS: BP 130/67; PULSE 73; PULSE 80; RESP 16; TEMP 36.4; O2SAT 95
== END 2024-07-26 18:42 | DRG 177 ==
LOC: ER 14:54 → 2ND 14:55
PROVIDERS: Admitting Provider Student in an Organized Health Care Education/Training Program; Emergency Provider Emergency Medicine; PCP Internal Medicine; Visit Provider Student in an Organized Health Care Education/Training Program
DX: U07.1 COVID-19 (principal); I50.33 Acute on chronic diastolic (congestive) heart failure; J12.82 Pneumonia due to coronavirus disease 2019; N17.9 Acute kidney failure, unspecified; E87.20 Acidosis, unspecified; R53.1 Weakness; N18.30 Chronic kidney disease, stage 3 unspecified; I12.9 Hypertensive chronic kidney disease with stage 1 through stage 4 chronic kidney disease, or unspecified chronic kidney disease; Z79.899 Other long term (current) drug therapy; Z95.1 Presence of aortocoronary bypass graft; Z87.891 Personal history of nicotine dependence; I25.10 Atherosclerotic heart disease of native coronary artery without angina pectoris
CPT/HCPCS: 36415; 70450; 70551; 71045; 80048; 80053; 80061; 82803; 83036; 83605; 83735; 83880; 84443; 84484; 85025; 86803; 87040; 87070; 87077; 87186; 87205; 87265; 87389; 87486; 87581; 87632; 87635; 87636; 93005; 93306; 94640; 97110; 97162; 97165; 97530; 99284; 99291; J1650; J1939; J1940; J2919; J3475; J7620

== ENCOUNTER 2024-10-28 13:26 | Outpatient (POV) | payer MEDICARE, SELFPAY ==
--- NOTE | 2024-10-28 13:46 | A.OFFVIS_ITS ---
[facility] Disclaimer: The information contained in this section may have been updated after the patient was seen, as this information can be updated by other users. Medical History (Updated 10/28/24 @ 13:48 by Juliann Colunga APRN) Right shoulder pain Left hip pain Left buttock pain Low back pain Lumbar radicular pain Trochanteric bursitis, left hip Joint effusion Acute shoulder pain Thrombocytopenia Kidney failure Primary osteoarthritis, right shoulder Primary generalized (osteo)arthritis Constipation Atherosclerotic heart disease of [place] coronary artery without angina pectoris HTN (hypertension) GERD (gastroesophageal reflux disease) HLD (hyperlipidemia) Family History Other Unknown family medical history Social History Smoking Status: Former smoker alcohol intake: never substance use type: denies use current occupational status: retired Travel in the last 8 weeks: None Have you lived/traveled outside [place] in past 30 days?: No Contact w/someone who lives/traveled outside US past 30 days?: No Exposure to someone with infectious disease in past 14 days?: No Do you have a fever (greater than 100.4 F or 38 C)?: No Have you tested positive for COVID-19: No Exposed to someone with COVID-19 in past 14 days?: No Do you have a sore throat?: No Do you have a cough?: No Do you have any weakness?: No Do you have any diarrhea?: No Are you experiencing any unusual bleeding?: No Do you have any muscle aches/pain?: No Do you have any abdominal pain?: No Are you experiencing loss of taste or smell?: No PM Subjective & Objective Subjective Subjective:: Patient is a pleasant 89-year-old male who presents today for worsening pain. He does rate his pain a 7 out of 10. He states the pain is all in his right shoulder. He states this is a chronic pain and that he denies any new injury or falls. He does state from our last appointment where he was scheduled for repeat shoulder injection however he ended up getting COVID and was under the weather and even had to be hospitalized and then go to a nursing facility for rehab. Patient states he is still there currently. He states he is feeling much better however he has had a lot more pain and describes it as an aching, throbbing sensation with sharp shooting pains with certain movements. He does state that he has very limited range of motion and it is affecting his ability perform activities of daily living such as cooking and cleaning or even having difficulty pulling his pants up. Patient did previously have an intra-articular injection back in May that did provide 100% relief. He does state that he would like to get scheduled for repeat injection. He has tried and failed conservative therapy and was even doing exercise classes there at the facility however had to stop due to worsening pain. He has been prescribed [place] 5 mg twice a day from our office and compounded cream. His Jerome has been reviewed and is appropriate. Review of Systems: General: No recent weight changes, no fever, no sleep disturbances Respiratory: No cough, no shortness of air, no recurring pulmonary infections Cardiovascular/peripheral vascular: No chest pain, no palpitations, no edema, no shortness of breath Gastrointestinal: No new onset incontinence, normal bowel movements reported Genitourinary: No new onset incontinence Musculoskeletal: Right shoulder pain Psychiatric: [Normal mood/affect] Neurological: [Denies weakness in extremities], [denies balance issues] Pain at rest (0-10 scale): 7 Objective Objective:: Physical Exam: General: Alert and oriented x3, no acute distress, pleasant and cooperative Lungs: Respirations even and unlabored, symmetrical chest expansion Eyes: PERRL Musculoskeletal: Flexion and extension of right shoulder somewhat guarded secondary to pain, [antalgic gait noted] Neurological: Speech clear, no gross sensory deficit Has patient had previous pain injection?: No Conservative treatment options previously tried: Home exercise plan Length of treatment: Longer than 12-week Meds Home Medications and Allergies Home Medications ?Medication ?Instructions ?Recorded ?Confirmed ?Type aspirin 81 mg tablet,delayed 81 mg PO DAILY 11/27/18 07/24/24 History release (Adult Low Dose Aspirin) atorvastatin 40 mg tablet 40 mg PO DAILY #90 tabs 03/20/24 07/24/24 Rx cyanocobalamin (vitamin B-12) 1,000 mcg PO DAILY #100 caps 04/19/24 07/24/24 Rx 1,000 mcg capsule hydrocodone 5 mg-acetaminophen 325 1 tab PO DAILY #30 tabs 07/15/24 07/24/24 Rx mg tablet doxazosin 4 mg tablet 4 mg PO DAILY 07/24/24 07/24/24 History esomeprazole magnesium 40 mg 40 mg PO DAILY 07/24/24 07/24/24 History capsule,delayed release finasteride 5 mg tablet 5 mg PO DAILY 07/24/24 07/24/24 History metoprolol succinate 50 mg 50 mg PO DAILY 07/24/24 07/24/24 History tablet,extended release 24 hr bumetanide 1 mg tablet 2 mg (2 x 1 mg) PO Q8H 7 days #42 07/26/24 Rx tabs dapagliflozin propanediol 10 mg 10 mg PO DAILY 30 days #30 tabs 07/26/24 Rx tablet (Farxiga) levofloxacin 750 mg tablet 750 mg PO DAILY #5 tabs 07/31/24 Rx polyethylene glycol 3350 17 17 g PO DAILY #510 grams 09/19/24 Rx gram/dose oral powder (Miralax) New Prescriptions to Start Prescriptions: Allergies Allergy/AdvReac Type Severity Reaction Status Date / Time No Known Allergies Allergy Verified 06/18/24 10:04 Assessment and Plan *Assessment and plan (1) Right shoulder pain: Status: Acute Category: Medical Code(s): M25.511 - Pain in right shoulder Plan Patient is experiencing worsening pain in his right shoulder with very limited range of motion. I did review over the risk and benefits of repeat right intra- articular shoulder injection and he would like to proceed forward with this plan of care. Patient has tried and failed conservative therapy including continued at home stretching exercise for longer than 12 weeks as well as recent physical therapy there at the shelter. Patient will be scheduled for a right shoulder intra-articular injection without fluoroscopy or ultrasound. Patient did previously have a intra-articular injection back in May that did provide 100% relief and did help ease down the pain for at least 3 months. Patient does have chronic pain in his right shoulder that has been going on for years. Patient has been instructed to contact the clinic with any concerns before the next appointment. Dr. Chavez has reviewed this note and agrees with this plan of care. This note was dictated using voice recognition software and make contain errors or omissions. All injections are used with Lidocaine, Bupivacaine and Depo Medrol. Occasionally urine drug screen is needed to verify patient's compliance with our office pain contract. This is ordered based off specific treatments related to chronic pain with the potential to abuse certain medications.
[2024-10-28 14:52] VITALS: BP 131/65; PULSE 68; RESP 18; O2SAT 97; BMI 30.4
== END 2024-10-28 23:59 | disposition home or self-care (01) ==
LOC: SC.PAIN 13:29
PROVIDERS: Visit Provider Nurse Practitioner Family
DX: M25.511 Pain in right shoulder (principal); Z73.89 Other problems related to life management difficulty
CPT/HCPCS: 99212; G0463

== ENCOUNTER 2024-10-29 10:17 | Day surgery (SDC) | payer MEDICARE, SELFPAY ==
[2024-10-29 10:46] VITALS: BP 136/53; PULSE 51; RESP 16; TEMP 36.9; O2SAT 98; BMI 30.4
[2024-10-29 11:13] VITALS: BP 129/51; PULSE 52; RESP 16; O2SAT 96
--- NOTE | 2024-10-29 11:13 | EXP.PAIN.PRO ---
Procedure Date: 10/29/24 Time: 11:00 Anesthesiologist:: Nima Benz CRNA Complications:: None Pre-procedure Diagnosis:: DJD right shoulder. Chronic right shoulder pain. Post-procedure Diagnosis:: Same. Indications for Procedure:: Patient is a pleasant 89-year-old male who comes our clinic today for right intra-articular shoulder injection of cortisone and local anesthetic. Patient describes right shoulder pain as constant, dull, aching. Patient rates his pain 8/10. Patient has 4/5 strength in the right arm. However, very limited range of motion secondary to right shoulder joint pain. Procedure Details:: Procedure Details: Right shoulder intra-articular injection Informed consent was obtained risk and benefits of the procedure were explained to the patient. Patient was taken to the procedure room. The right shoulder was prepped using ChloraPrep. A 25-gauge needle was used posteriorly to inject 10 mL bupivacaine 0.25% and Depo-Medrol 40 mg. Patient tolerated procedure well with no complications. Plan and Disposition:: Patient was discharged without incident.
[2024-10-29 11:26] VITALS: BP 150/59; PULSE 68; RESP 18; O2SAT 95
[2024-10-29] MEDS: LIDOCAINE 1% 5ML PF VIAL 5 ML (11:26)
[2024-10-29 11:27] VITALS: BP 150/59; PULSE 68; RESP 18; O2SAT 95
== END 2024-10-29 11:13 | disposition home or self-care (01) ==
PROVIDERS: PCP Family Medicine Hospice and Palliative Medicine; Visit Provider Nurse Anesthetist, Certified Registered
DX: M19.011 Primary osteoarthritis, right shoulder (principal); M25.511 Pain in right shoulder; G89.29 Other chronic pain
CPT/HCPCS: 20610

== ENCOUNTER 2024-11-20 13:17 | Outpatient (POV) | payer MEDICARE, SELFPAY ==
[2024-11-20 13:32] VITALS: BP 122/55; PULSE 64; RESP 18; O2SAT 96; BMI 29.8
--- NOTE | 2024-11-20 13:46 | EXP.PAIN.SOA ---
[facility] Disclaimer: The information contained in this section may have been updated after the patient was seen, as this information can be updated by other users. Medical History Right shoulder pain Left hip pain Left buttock pain Low back pain Lumbar radicular pain Trochanteric bursitis, left hip Joint effusion Acute shoulder pain Thrombocytopenia Kidney failure Primary osteoarthritis, right shoulder Primary generalized (osteo)arthritis Constipation Atherosclerotic heart disease of [place] coronary artery without angina pectoris HTN (hypertension) GERD (gastroesophageal reflux disease) HLD (hyperlipidemia) Family History Other Unknown family medical history Social History Smoking Status: Former smoker alcohol intake: never substance use type: denies use current occupational status: retired Travel in the last 8 weeks: None PM Subjective & Objective Subjective Subjective:: Patient is a pleasant 89-year-old male who presents today for follow-up of right intra-articular shoulder injection on 10/29/2024. Today he rates his pain a 2 out of 10. He does state that he had 100% relief for a full 2 weeks and even now is radiated about 80 to 90% improvement. Patient states that he has been able to move that joint easier with overall decreased pain. He does state that he still will have an occasional pain in this with certain movements however it is much more manageable and not nearly as severe. Patient was ordered compounded cream in the past however states that he has not even needed to use this on this joint. His Jerome has been reviewed and is appropriate. Review of Systems: General: No recent weight changes, no fever, no sleep disturbances Respiratory: No cough, no shortness of air, no recurring pulmonary infections Cardiovascular/peripheral vascular: No chest pain, no palpitations, no edema, no shortness of breath Gastrointestinal: No new onset incontinence, normal bowel movements reported Genitourinary: No new onset incontinence Musculoskeletal: Right shoulder pain Psychiatric: [Normal mood/affect] Neurological: [Denies weakness in extremities], [denies balance issues] Pain at rest (0-10 scale): 2 Objective Objective:: Physical Exam: General: Alert and oriented x3, no acute distress, pleasant and cooperative Lungs: Respirations even and unlabored, symmetrical chest expansion Eyes: PERRL Musculoskeletal: Flexion and extension of right shoulder somewhat guarded secondary to pain, [antalgic gait noted] Neurological: Speech clear, no gross sensory deficit Has patient had previous pain injection?: Yes Percent improvement in pain since last injection: 100% Conservative treatment options previously tried: Home exercise plan Length of treatment: Longer than 12 weeks Meds Home Medications and Allergies Home Medications ?Medication ?Instructions ?Recorded ?Confirmed ?Type aspirin 81 mg tablet,delayed 81 mg PO DAILY 11/27/18 11/20/24 History release (Adult Low Dose Aspirin) atorvastatin 40 mg tablet 40 mg PO DAILY #90 tabs 03/20/24 11/20/24 Rx cyanocobalamin (vitamin B-12) 1,000 mcg PO DAILY #100 caps 04/19/24 11/20/24 Rx 1,000 mcg capsule hydrocodone 5 mg-acetaminophen 325 1 tab PO DAILY #30 tabs 07/15/24 11/20/24 Rx mg tablet doxazosin 4 mg tablet 4 mg PO DAILY 07/24/24 11/20/24 History esomeprazole magnesium 40 mg 40 mg PO DAILY 07/24/24 11/20/24 History capsule,delayed release finasteride 5 mg tablet 5 mg PO DAILY 07/24/24 11/20/24 History metoprolol succinate 50 mg 50 mg PO DAILY 07/24/24 11/20/24 History tablet,extended release 24 hr bumetanide 1 mg tablet 2 mg (2 x 1 mg) PO Q8H 7 days #42 07/26/24 11/20/24 Rx tabs dapagliflozin propanediol 10 mg 10 mg PO DAILY 30 days #30 tabs 07/26/24 11/20/24 Rx tablet (Farxiga) levofloxacin 750 mg tablet 750 mg PO DAILY #5 tabs 07/31/24 11/20/24 Rx polyethylene glycol 3350 17 17 g PO DAILY #510 grams 09/19/24 11/20/24 Rx gram/dose oral powder (Miralax) New Prescriptions to Start Prescriptions: Allergies Allergy/AdvReac Type Severity Reaction Status Date / Time No Known Allergies Allergy Verified 06/18/24 10:04 Assessment and Plan *Assessment and plan (1) Right shoulder pain: Status: Acute Category: Medical Code(s): M25.511 - Pain in right shoulder Plan Patient has had significant improvement following his injection and does not require any additional injection therapy at this time. Patient will return to clinic in 6 weeks for reevaluation of symptoms and plan of care. Patient has been instructed to contact the clinic with any concerns before the next appointment. Dr. Chavez has reviewed this note and agrees with this plan of care. This note was dictated using voice recognition software and make contain errors or omissions. All injections are used with Lidocaine, Bupivacaine and Depo Medrol. Occasionally urine drug screen is needed to verify patient's compliance with our office pain contract. This is ordered based off specific treatments related to chronic pain with the potential to abuse certain medications.
== END 2024-11-20 23:59 | disposition home or self-care (01) ==
LOC: SC.PAIN 13:20
PROVIDERS: PCP Family Medicine; Visit Provider Nurse Practitioner Family
DX: M25.511 Pain in right shoulder (principal)
CPT/HCPCS: 99212; G0463

== ENCOUNTER 2025-01-01 12:59 | Outpatient (POV) | payer MEDICARE, SELFPAY ==
[2025-01-01 13:09] VITALS: BP 100/70; PULSE 67; RESP 18; O2SAT 95; BMI 30.1
--- NOTE | 2025-01-01 13:26 | EXP.PAIN.SOA ---
[facility] Disclaimer: The information contained in this section may have been updated after the patient was seen, as this information can be updated by other users. Medical History Right shoulder pain Left hip pain Left buttock pain Low back pain Lumbar radicular pain Trochanteric bursitis, left hip Joint effusion Acute shoulder pain Thrombocytopenia Kidney failure Primary osteoarthritis, right shoulder Primary generalized (osteo)arthritis Constipation Atherosclerotic heart disease of [place] coronary artery without angina pectoris HTN (hypertension) GERD (gastroesophageal reflux disease) HLD (hyperlipidemia) Family History Other Unknown family medical history Social History Smoking Status: Former smoker alcohol intake: never substance use type: denies use current occupational status: retired Travel in the last 8 weeks: None PM Subjective & Objective Subjective Subjective:: Patient is a pleasant 89-year-old male who presents today for worsening right shoulder pain. He rates his pain an 8 out of 10. He denies any new trauma or injury. He does state that he feels like the last injection has officially worn off. Patient got a right intra-articular injection in October that did provide 100% relief and was still helping up until the last week or 2. Patient does state the pain is back to baseline with a aching, throbbing sensation that is worse in the morning and does get a little bit better as the day goes on. He does state the pain interferes with his ability perform activities of daily living such as cooking and cleaning. Patient is interested in additional injections. He states these did help improve his overall function. Patient denies any problems with this left shoulder. Patient has been prescribed compounded cream. His Jerome has been reviewed and is appropriate. Review of Systems: General: No recent weight changes, no fever, no sleep disturbances Respiratory: No cough, no shortness of air, no recurring pulmonary infections Cardiovascular/peripheral vascular: No chest pain, no palpitations, no edema, no shortness of breath Gastrointestinal: No new onset incontinence, normal bowel movements reported Genitourinary: No new onset incontinence Musculoskeletal: Right shoulder pain Psychiatric: [Normal mood/affect] Neurological: [Denies weakness in extremities], [denies balance issues] Pain at rest (0-10 scale): 8 Objective Objective:: Physical Exam: General: Alert and oriented x3, no acute distress, pleasant and cooperative Lungs: Respirations even and unlabored, symmetrical chest expansion Eyes: PERRL Musculoskeletal: Flexion and extension of right shoulder somewhat guarded secondary to pain, [antalgic gait noted] Neurological: Speech clear, no gross sensory deficit Has patient had previous pain injection?: No Conservative treatment options previously tried: Home exercise plan Length of treatment: Longer than 12 weeks Meds Home Medications and Allergies Home Medications ?Medication ?Instructions ?Recorded ?Confirmed ?Type aspirin 81 mg tablet,delayed 81 mg PO DAILY 11/27/18 01/01/25 History release (Adult Low Dose Aspirin) atorvastatin 40 mg tablet 40 mg PO DAILY #90 tabs 03/20/24 01/01/25 Rx cyanocobalamin (vitamin B-12) 1,000 mcg PO DAILY #100 caps 04/19/24 01/01/25 Rx 1,000 mcg capsule hydrocodone 5 mg-acetaminophen 325 1 tab PO DAILY #30 tabs 07/15/24 01/01/25 Rx mg tablet doxazosin 4 mg tablet 4 mg PO DAILY 07/24/24 01/01/25 History esomeprazole magnesium 40 mg 40 mg PO DAILY 07/24/24 01/01/25 History capsule,delayed release finasteride 5 mg tablet 5 mg PO DAILY 07/24/24 01/01/25 History metoprolol succinate 50 mg 50 mg PO DAILY 07/24/24 01/01/25 History tablet,extended release 24 hr bumetanide 1 mg tablet 2 mg (2 x 1 mg) PO Q8H 7 days #42 07/26/24 01/01/25 Rx tabs dapagliflozin propanediol 10 mg 10 mg PO DAILY 30 days #30 tabs 07/26/24 01/01/25 Rx tablet (Farxiga) levofloxacin 750 mg tablet 750 mg PO DAILY #5 tabs 07/31/24 01/01/25 Rx polyethylene glycol 3350 17 17 g PO DAILY #510 grams 09/19/24 01/01/25 Rx gram/dose oral powder (Miralax) azithromycin 250 mg tablet See Rx Instructions PO .COMPLEX #6 12/02/24 01/01/25 Rx tabs codeine 10 mg-guaifenesin 100 mg/5 See Rx Instructions PO Q6H PRN 12/02/24 01/01/25 Rx mL oral liquid cough #120 mL New Prescriptions to Start Prescriptions: Allergies Allergy/AdvReac Type Severity Reaction Status Date / Time No Known Allergies Allergy Verified 12/02/24 13:08 Assessment and Plan *Assessment and plan (1) Right shoulder pain: Status: Acute Category: Medical Code(s): M25.511 - Pain in right shoulder Plan Patient is experiencing worsening pain in his right shoulder with limited range of motion. Patient was counseled that he may benefit from repeat intra-articular shoulder injection. Patient's last shoulder injection was in October that did provide 100% improvements and did give at least 2 months of decreased pain. Patient has had chronic shoulder pain for longer than 6 months and has continued conservative treatment including oral medication, heat and ice, topicals, at home stretching exercise for longer than 12 weeks. Patient will be scheduled for a right shoulder intra-articular injection. This will be done without fluoroscopic guidance or ultrasound. Patient has been instructed to contact the clinic with any concerns before the next appointment. Dr. Chavez has reviewed this note and agrees with this plan of care. This note was dictated using voice recognition software and make contain errors or omissions. All injections are used with Lidocaine, Bupivacaine and Depo Medrol. Occasionally urine drug screen is needed to verify patient's compliance with our office pain contract. This is ordered based off specific treatments related to chronic pain with the potential to abuse certain medications.
--- OUTSIDE RECORDS SUMMARY | 2025-01-02 22:12 | XMS_ITS | Data Portability ---
Author Organization [facility] [place] [facility] Address [address] [place] [address] Care Team Providers Care Mgmt Consultant Name Role Phone NAELKENNETHT Primary Care Provider GARFIELD NG Talent Development Specialist Assessment No assessment recorded. Plan of Treatment Reminders Order Date Submit Date Provider Last Modified By Organization Details Last Modified Time Details Appointments FOLLOW UP DAK 2024 11:30A M GARFIELD RIGGS MD Not available Not available Not available Lab surgical pathology study 2024 025 [facility], [address] [place] [address], [phone], 10/31/2024 14:50:31 surgical pathology study 2022 023 [facility], [address] [place] [address], [id number], 08/09/2023 12:58:40 Referral None recorded. Procedures None recorded. Surgeries None recorded. Imaging None recorded. Medication Orders None recorded. Patient TargetsNo targets recorded. Patient Instructions Encounter Date Encounter Id Patient Instructions Last Modified By Organization Details Last Modified Time 10/30/2024 [id number] Recommended returning to clinic in 6 months for FBSE Not available 10/30/2024 12:07:45 Reason for Referral None Reported. 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 AJCC: T1, Nx, Mx SOURC E OF SPECI MEN: 1) SKIN, L AC FOSSA 2) SKIN, L ELBOW [facility] INFOR MATIO N: A: R/O: SCC. ED&C DONE. B: R/O: SCC. ED&C DONE. Gross Descr iptio n: A: The speci men consi sted of a singl e dias tissu e fragm ent which measu red 12 x 8 x 6 mm. Speci men is seria lly secti oned (x4). All is submi tted in one casse tte. B: The speci men consi sted of multi ple (x2) dias fragm ents which measu red 18 x 9 x 8 [address] ag[address] gate. Trise cted both piece s. All tissu e submi tted in two casse ttes. Micro scopi c Descr iptio n: A: The strat um corne um is marke dly hyper kerat otic formi ng a tall cutan eous horn. The under lying epide rmis displ ays kerat inocy te atypi a and disor ganiz ation . Atypi christiane kerat inocy mitchell invad e the dermi s. B: Irreg ular islan ds and nests of cytol ogica lly atypi christiane kerat inizi ng epith elial cells infil trate the dermi s. LILIYA COPPOLA MD Lakisha d Out Date: 10/31 13:33 1 Not Available [facility] [address] [place], [phone], 10/31/2024 14:50:30 Result Notes None recorded. Problems Name Problem SNOMED Code Status Onset Date Resolution Date Notes Provider Name and Address Organization Details Recorded Time Arthritis 3474961 Active 2022 Kitaconor Clementskyjhonny [facility] 3 10:05:44 Heart disease 14693756 Active 2022 Kitaconor Gonzalez [facility] 3 10:05:52 Hypertensive disorder 39698828 [facility] 10:06[facility]01 History of malignant neoplasm of skin 175355593 Active [address]23 [facility] 4 11:41:25 Notes:High Cholesterol Problem Notes None recorded. Procedures Surgical History Date Name Laterality Status Provider Name and Address Organization Details Recorded Time 5 DAK - Cryo AK completed [facility] 10/30/2024 12:07:39 5 DAK - ED&C; trunk,arm,leg completed [facility] 10/30/2024 12:12:21 4 DAK - Cryo AK completed [facility] 04/30/2024 11:46:59 4 DAK - Destruction BN Lesions completed [facility] 04/30/2024 11:44:37 3 Biopsy Skin Lesion; Tangential completed [facility] 08/08/2023 10:28:19 3 DAK - Cryo AK completed [facility] 08/08/2023 10:29:55 Imaging Results None recorded. Procedure Notes None recorded. Medical Equipment None Reported. Allergies No known drug allergies Medications Name Sig Start Date Stop Date Status Note LastModified by Organization Details LastModified Time atorvastatin active Not Available Not Available Not Available aspirin active Not Available Not Avail able Not Available finasteride active Not Available Not A vailable Not Available doxazosin active Not Available Not Anila ilable Not Available metoprolol tartrate active Not Availab le Not Available Not Available hydrochlorothiazide active Not Availab le Not Available Not Available lisinopril active Not Available Not Av ailable Not Available Nexium active Not Available Not Availa ble Not Available Vitals None Recorded Social History Question Answer Notes LastModified by Organizat ion Details LastModified Time Tobacco Smoking Status [facility] 08/08/2023 10:06:52 What Is Your Level Of Alcohol Consumption? None Information not available 08/08/2023 When Did You Quit Smoking? 17+yearssin paul jon Information not available 08/08/2023 What Was The Date Of Your Most Recent Tobacco Screening? 10/30/2024 Information not available 10/30/2024 Do You Use Any Illicit Or Recreational Drugs? No Information not available 08/08/2023 Do You Or Have You Ever Used Any Other Forms Of Tobacco Or Nicotine? No Information not available 08/08/2023 Sex: Unknown Functional Status None recorded. Mental Status None recorded. Family History Nothing Reported. Medical History Condition Response Skin Cancer Melanoma Y Past Encounters Encounter ID Performer Location Encounter Start Date Encounter Closed Date Diagnosis/Indication Diagnosis SNOMED-CT Code Diagnosis ICD10 Code Diagnosis Note [id number] GARFIELD RIGGS MD [address] [id number] 08/08/2023 09:49:09 08/08/2023 10:43:34 History of malignant neoplasm of skin 807125828 Z85.828 - No evidence of recurrence today- Call with any worrisome lesions or if treated lesions return- Return at regular intervals for skin exam as recommende d most recent 01/2023 Multiple b enign melanocytic nevi 402912836 D22.5 - Benign moles seen on exam today - SPF 30 or higher broad-spec trum sunscreen recommende d with re-applica tion every 2 hours - Discussed sun protection measures, including wide-brimm ed hat, sun-protec tive clothing, and avoidance of sun during peak hours of 10am-4pm - Avoid tanning beds as these can increase the chances of all 3 types of skin cancer - Instructed to monitor for changes and to call us for appointmen t with any changing or worrisome lesions Seborrheic keratosis 394 686544 L82.1 - Benign overgrowth s of skin - 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 Can have a genetic tendency. Alert provider to any new or changing symptoms so you may be evaluated for internal spread of melanoma. Call if any new spots you are worried about. MMis R posterolat eral neck, sp WLE 2016MMIs, R retroauric ular neck, s/p WLE 2010 Actinic keratosis 530498 007 L57.0 Actinic keratoses are precancero us lesions that may progress to squamous cell carcinoma if untreated. UV light and genetics may increase risk. Treated lesions should blister, scab over, and heal within a few weeks. If treated lesion(s) does not resolve within 1-2 months, patient agrees to follow up for re-evaluat ion. Neoplasm o f uncertain behavior of skin 26545237 D48.5 Right medial amish - ill-define d 1.5cm pink scaly patch - r/o AK vs SCC (Mohs if +) [id number] [address] [address] 12/14/2023 12:44:03 12/21/2023 11:28:53 [id number] GARFIELD RIGGS MD [address] [address] 04/30/2024 11:13:04 04/30/2024 11:52:37 History of malignant neoplasm of skin 436098851 Z85.828 - No evidence of recurrence today- Call with any worrisome lesions or if treated lesions return- Return at regular intervals for skin exam as recommende d most recent 09/2022 Seborrheic keratosis 394 678079 L82.1 - Benign overgrowth s of skin - Hereditary Senile angioma 5516327 I 78.1 - Benign blood vessel growths - Hereditary Solar lentigo 31300586 L 81.4 - Benign brown spots - Sun-induce d History of malignant melanoma of the skin 4491905511 08 Z85.820 Reiterated need for annual eye exams, sun protection , regular self-exam, and skin exams for 1st degree relatives as melanoma. Can have a genetic tendency. Alert provider to any new or changing symptoms so you may be evaluated for internal spread of melanoma. Call if any new spots you are worried about. MMis R posterolat eral neck, sp WLE 2016MMIs, R retroauric ular neck, s/p WLE 2010 Actinic keratosis 646997 007 L57.0 Actinic keratoses are precancero us lesions that may progress to squamous cell carcinoma if untreated. UV light and genetics may increase risk. Treated lesions should blister, scab over, and heal within a few weeks. If treated lesion(s) does not resolve within 1-2 months, patient agrees to follow up for re-evaluat ion. Melanocyti c nevus of face 366831492 D22.39 Benign appearing nevi noted on exam. Reassured. Monitor for changes and call us for appt if changing or worrisome. Recommende d daily SPF 30 (or higher) broad-spec trum sunscreen usage with re-applica tion every 2 hours, as well as sun protection measures, including wide-brimm ed hats, wearing of protective clothing, and avoidance of sun during peak hours of the day 10 am - 4 pm. Avoid tanning beds as these can increase chances of all 3 main types of skin cancers. Seborrheic dermatitis 50 708230 L21.8 Seborrheic dermatitis can cause itching, redness and dandruff in the scalp, brows, facial folds and chest. A yeast naturally found on the skin can overgrow and cause this reaction in some people. The condition may wax and wane.???Pt declines treatment today Inflamed s eborrheic keratosis 861795204 L82.0 R52 Counseled on benign nature. Pt elected to treat with liquid nitrogen due to painful irritation . May recur or persist after treatment. Discolorat ion or scarring is possible. [id number] GARFIELD RIGGS MD [address] [address] 10/30/2024 11:02:41 10/30/2024 12:30:53 History of malignant neoplasm of skin 274233545 Z85.828 - No evidence of recurrence today- Call with any worrisome lesions or if treated lesions return- Return at regular intervals for skin exam as recommende d most recent 09/2022 History of malignant melanoma of the skin 2604442809 08 Z85.820 Reiterated need for annual eye exams, sun protection , regular self-exam, and skin exams for 1st degree relatives as melanoma. Can have a genetic tendency. Alert provider to any new or changing symptoms so you may be evaluated for internal spread of melanoma. Call if any new spots you are worried about. MMis R posterolat eral neck, sp WLE 2016MMIs, R retroauric ular neck, s/p WLE 2011 Multiple b enign melanocytic nevi 092659997 D22.5 - Benign moles seen on exam today - SPF 30 or higher broad-spec trum sunscreen recommende d with re-applica tion every 2 hours - Discussed sun protection measures, including wide-brimm ed hat, sun-protec tive clothing, and avoidance of sun during peak hours of 10am-4pm - Instructed to monitor for changes and to call us for appointmen t with any changing or worrisome lesions Seborrheic keratosis 394 050635 L82.1 - Benign blood vessel growths - Hereditary Solar lentigo 85866769 L 81.4 - Benign brown spots - Sun-induce d Senile angioma 3649246 I 78.1 - Benign blood vessel growths - Hereditary Actinic keratosis 213954 007 L57.0 Actinic keratoses are precancero us lesions that may progress to squamous cell carcinoma if untreated. UV light and genetics may increase risk. Treated lesions should blister, scab over, and heal within a few weeks. If treated lesion(s) does not resolve within 1-2 months, patient agrees to follow up for re-evaluat ion. Neoplasm o f uncertain behavior of skin 95654163 D48.5 C44.629 Left AC fossa - 1.2cm pink scaly plaque - R/o SCC (ED&C done)Left elbow- 1.2cm pink scaly plaque -R/o SCC (ED&C done) Due to patient history and preference , ED&C was performed on site at time of biopsy Health Concerns Section Related Observation LastModified by Organization Detai ls LastModified Time None Recorded Concern Status LastModified by Organization Details LastModified Time None Recorded Advance Directives Directive None Recorded Payers Encounter Date Sequence Insurance Name Policy Number Policy Bueno Covered Member ID Bueno Member ID Guarantor Name 08/08/2023 1 [facility] (MEDICARE REPLACEMENT/A DVANTAGE - PPO) [id number] Mery Hughes [id number] Douglasjessica Hughes 12/14/2023 1 [facility] (MEDICARE REPLACEMENT/A DVANTAGE - PPO) [id number] Mery Hughes [id number] Douglas K Saul 04/30/2024 1 [facility] (MEDICARE REPLACEMENT/A DVANTAGE - PPO) [id number] Mery Hughes [id number] Douglas K Saul 10/30/2024 1 [facility] (MEDICARE REPLACEMENT/A DVANTAGE - PPO) [id number] Mery Hughes [id number] Douglas [employer] Saul Notes Date Note Type Note Provider Name and Address Organization Details Recorded Time 08/08/2023 text/html Here for a full body skin examination - last skin check:January 2023- history of skin cancer - {{BCC SCC MM BCC and SCC BCC and MM SCC and MM BCC, SCC, and MM*}}- last skin cancer was in {{2022#}}- spots of concern today: Right cheek GARFIELD RIGGS MD [address] [place] [address], [phone], [facility] 08/08/2023 12:29:55 04/30/2024 text/html Here for a full body skin examination - last skin check:08/08/23 - history of skin cancer - {{BCC SCC MM BCC and SCC BCC and MM SCC and MM BCC, SCC, and MM*}} - last skin cancer was in {{/ 2020#}} - spots of concern today: left elbow, above left eye , back of head In wheel chair and doesn't think he can sit on the table. May not be able to be put in gown GARFIELD RIGGS MD [address] [place] [address], [phone], [facility] 04/30/2024 19:56:07 10/30/2024 text/html Here for a waist up skin examination. - last skin check: April 2024- history of skin cancer - {{BCC SCC MM BCC and SCC BCC and MM SCC and MM BCC, SCC, and MM*}}- last skin cancer was in {{/ 2020#}}- spots of concern today: Right hand, left wrist, right ear, left elbow. In wheel chair and doesn't think he can sit on the table. May not be able to be put in gown GARFIELD RIGGS MD [address] [place], [phone], [facility] 10/30/2024 12:54:15
== END 2025-01-01 23:59 | disposition home or self-care (01) ==
LOC: SC.PAIN 13:01
PROVIDERS: PCP Family Medicine Hospice and Palliative Medicine; Visit Provider Nurse Practitioner Family
DX: M25.511 Pain in right shoulder (principal); Z87.891 Personal history of nicotine dependence; Z73.89 Other problems related to life management difficulty
CPT/HCPCS: 99212; G0463

== ENCOUNTER 2025-02-04 12:09 | Outpatient (CLI) | payer MEDICARE, SELFPAY ==
[2025-02-04 17:27] LABS: Basophils % 0.2 % (0.1-2.0); Eosinophils % 0.4 % (0.1-12.0); Hematocrit 37.7 % (42.0-52.0); Hemoglobin 12.2 g/dL (14.1-18.0); Immature Granulocytes # 0.02 10^3uL; Immature Granulocytes % 0.2 %; Lymphocytes # 0.8 K/mm3 (0.7-4.5); Lymphocytes % 8.8 % (10-50); Mean Corpuscular HGB Conc 32.4 g/dL (31.8-35.4); Mean Corpuscular Hemoglobin 31.4 pg (27.0-31.2); Mean Corpuscular Volume 97.2 fl (80-94); Mean Platelet Volume 11.7 fl (7.4-10.4); Monocytes # 0.2 K/mm3 (0.1-1.0); Monocytes % 1.7 % (1.7-9.3); Neutrophils % 88.7 % (37.0-80.0); Nucleated Red Blood Cells # 0 10^3/uL; Nucleated Red Blood Cells % 0 %; Platelet Count 131 K/mm3 (142-424); Red Blood Count 3.88 M/mm3 (4.60-6.20); Red Cell Distribution Width 14.4 % (11.5-17.5); Red Cell Distribution Width-SD 51.6 fL
[2025-02-04 18:08] LABS: Alanine Aminotransferase 12 U/L (12-78); Albumin Level 4.1 g/dl (3.5-5.0); Albumin/Globulin Ratio 1.7 (1.1-1.8); Alkaline Phosphatase 109 U/L (38-126); Anion Gap 10.3 mEq/L (5-15); Aspartate Amino Transferase 19 U/L (17-59); Bilirubin,Total 0.9 mg/dl (0.2-1.3); Blood Urea Nitrogen 48 mg/dl (9-20); Calcium 8.8 mg/dl (8.4-10.2); Carbon Dioxide 26 mmol/L (22.0-30.0); Chloride 108 mmol/L (98-107); Chol/HDL Ratio 1.9 (1-3.5); Cholesterol 98 mg/dl (140-200); Estimated Glomerular Filt Rate 28 ml/min (>60); GFR (African American) 34 ML/MIN (>60); Globulin 2.4 g/dL (1.3-3.2); Glucose 106 mg/dl (74-100); HDL Cholesterol 51 mg/dl (40-60); Potassium 4.3 mmoL/L (3.5-5.1); Sodium 140 mmol/L (136-145); Total Protein,Serum 6.5 g/dl (6.3-8.2); Triglycerides 70 mg/dl (30-150); VLDL Cholesterol 14 mg/dL (0-40)
[2025-02-04 18:20] LABS: Free T4 (Free Thyroxine) 1.29 ng/dl (0.78-2.19)
[2025-02-04 18:25] LABS: Direct LDL Cholesterol 33.87 mg/dL (100-129)
--- OUTSIDE RECORDS SUMMARY | 2025-02-07 12:11 | XMS_ITS | Data Portability ---
Author Organization [facility] CRUZ Bland DOWELL CLOSED Address [address] [place] [address] Care Team Providers Care Oracle Brm Developer Name Role Phone NAELKENNETHT Primary Care Provider GARFIELD NG Pneumatic Hoist Operator Assessment No assessment recorded. Plan of Treatment Reminders Order Date Submit Date Provider Last Modified By Organization Details Last Modified Time Details Appointments FOLLOW UP DAK 2024 11:30A M GARFIELD RIGGS MD Not available Not available Not available Lab surgical pathology study 2024 025 [facility], [address] [place] [address], [phone], 10/31/2024 14:50:31 surgical pathology study 2022 023 [facility], [address] [place] [address], [phone], 08/09/2023 12:58:40 Referral None recorded. Procedures None recorded. Surgeries None recorded. Imaging None recorded. Medication Orders None recorded. Patient TargetsNo targets recorded. Patient Instructions Encounter Date Encounter Id Patient Instructions Last Modified By Organization Details Last Modified Time 10/30/2024 [id number] Recommended returning to clinic in 6 months for FBSE [email or web address] Not available 10/30/2024 12:07:45 Reason for Referral None Reported. Results Created Date Observation Date Name Description Value Unit Range Abnormal Flag Note LastModifiedBy Organization Detail LastModifiedTime 10/30/1910/30/2024 SURGI CHRISTIANE surgical SEE BELOW abnormal [place] topat holog y Repor t NAME: DOUGLAS [...] Out Date: 10/31 13:33 1 Not Available [facility] [address] [place], [phone], 10/31/2024 14:50:30 Result Notes None recorded. Problems Name Problem SNOMED Code Status Onset Date Resolution Date Notes Provider Name and Address Organization Details Recorded Time Arthritis 8281845 Active 2022 Kitaconor Clementsrijhonny [facility] 3 10:05:44 Heart disease 04547622 Active 2022 Kitaconor Gonzalez [facility] 3 10:05:52 Hypertensive disorder 70907106 [facility] 10:06:01 History of malignant neoplasm of skin 551401849 Active 2023 [facility] 4 11:41:25 Notes:High Cholesterol Problem Notes None recorded. Procedures Surgical History Date Name Laterality Status Provider Name and Address Organization Details Recorded Time 5 DAK - Cryo AK completed [facility] 10/30/2024 12:07:39 5 DAK - ED&C; trunk,arm,leg completed [facility] 10/30/2024 12:12:21 4 DAK - Cryo AK completed [facility] 04/30/2024 11:46:59 4 DAK - Destruction BN Lesions completed [facility] 04/30/2024 11:44:37 3 Biopsy Skin Lesion; Tangential completed [facility] 08/08/2023 10:28:19 3 DAK - Cryo AK completed [facility] 08/08/2023 10:29:55 Imaging Results None recorded. Procedure [...] Time Tobacco Smoking Status [facility] 08/08/2023 10:06:52 When Did You Quit Smoking? 17+yearssinc elastcigaret te Information not available 08/08/2023 What Was The Date Of Your Most Recent Tobacco Screening? 10/30/2024 [email or web address] Information not available 10/30/2024 Sex: Unknown Functional Status Question Answer Note LastModified by Organizat ion Details LastModified Time Do you use any illicit or recreational drugs? No Information not available 08/08/2023 Do you or have you ever used any other forms of tobacco or nicotine? No Information not available 08/08/2023 What is your level of alcohol consumption? None Information not available 08/08/2023 Mental Status None recorded. Family History Nothing Reported. Medical History Condition Response Skin Cancer Melanoma Y Past Encounters Encounter ID Performer Location Encounter Start Date Encounter Closed Date Diagnosis/Indication Diagnosis SNOMED-CT Code Diagnosis ICD10 Code Diagnosis Note [id number] GARFIELD RIGGS MD [address] [place] [address] 08/08/2023 09:49:09 08/08/2023 10:43:34 History of malignant neoplasm of skin 372526516 Z85.828 - No evidence of recurrence today- Call with any worrisome lesions or if treated lesions return- Return at regular intervals for skin exam as recommende d most recent 01/2023 Multiple b enign melanocytic nevi 295660983 D22.5 - Benign moles seen on exam [...] changing or worrisome lesions Seborrheic keratosis 394 946055 L82.1 - Benign overgrowth s of skin - 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 UV light and genetics may increase risk. Treated lesions should blister, scab over, and heal within a few weeks. If treated lesion(s) does not resolve within 1-2 months, patient agrees to follow up for re-evaluat ion. Neoplasm o f uncertain behavior of skin 23660072 D48.5 Right medial evangelical - ill-define d 1.5cm pink scaly patch - r/o AK vs SCC (Mohs if +) [id number] JUAN BENTLEY MD [address] [address] 12/14/2023 12:44:03 12/21/2023 11:28:53 [id number] GARFIELD RIGGS MD [address] [address] 04/30/2024 11:13:04 04/30/2024 11:52:37 History of malignant neoplasm of skin 256652874 Z85.828 - No evidence of recurrence today- Call with any worrisome lesions or if treated lesions return- Return at regular intervals for skin exam as recommende d most recent 09/2022 Seborrheic keratosis 394 146307 L82.1 - Benign overgrowth s of skin - Hereditary Senile angioma 5099905 I 78.1 - Benign blood vessel growths - Hereditary Solar lentigo 49601905 L 81.4 - Benign brown spots - Sun-induce d History of malignant melanoma of the skin 4402812577 08 Z85.820 Reiterated need for annual eye [...] ular neck, s/p WLE 2010 Actinic keratosis 717740 007 L57.0 Actinic keratoses are precancero us lesions that may progress to squamous cell carcinoma if untreated. UV light and genetics may increase risk. Treated lesions should blister, scab over, and heal within a few weeks. If treated lesion(s) does not resolve within 1-2 months, patient agrees to follow up for re-evaluat ion. Melanocyti c nevus of face 004167567 D22.39 Benign appearing nevi noted on exam. [...] types of skin cancers. Seborrheic dermatitis 50 698389 L21.8 Seborrheic dermatitis can cause itching, redness and dandruff in the scalp, brows, facial folds and chest. A yeast naturally found on the skin can overgrow and cause this reaction in some people. The condition may wax and wane.???Pt declines treatment today Inflamed s eborrheic keratosis 611592827 L82.0 R52 Counseled on benign nature. Pt elected to treat with liquid nitrogen due to painful irritation . May recur or persist after treatment. Discolorat ion or scarring is possible. [id number] GARFIELD RIGGS MD [address] [address] 10/30/2024 11:02:41 10/30/2024 12:30:53 History of malignant neoplasm of skin 168380714 Z85.828 - No evidence of recurrence today- Call with any worrisome lesions or if treated lesions return- Return at regular intervals for skin exam as recommende d most recent 09/2022 History of malignant melanoma of the skin 5863782340 08 Z85.820 Reiterated need for annual eye [...] R retroauric ular neck, s/p WLE 2010 Multiple b enign melanocytic nevi 285979253 D22.5 - Benign moles seen on exam [...] changing or worrisome lesions Seborrheic keratosis 394 731665 L82.1 - Benign blood vessel growths - Hereditary Solar lentigo 98281259 L 81.4 - Benign brown spots - Sun-induce d Senile angioma 3151282 I 78.1 - Benign blood vessel growths - Hereditary Actinic keratosis 216736 007 L57.0 Actinic keratoses are precancero us lesions that may progress to squamous cell carcinoma if untreated. UV light and genetics may increase risk. Treated lesions should blister, scab over, and heal within a few weeks. If treated lesion(s) does not resolve within 1-2 months, patient agrees to follow up for re-evaluat ion. Neoplasm o f uncertain behavior of skin 18406401 D48.5 C44.629 Left AC fossa - 1.2cm [...] Recorded Advance Directives Directive None Recorded Payers Insurance Date Sequence Insurance Name Policy Number Policy Bueno Covered Member ID Bueon Member ID Guarantor Name 11/05/2024 1 [facility] (MEDICARE REPLACEMENT/A DVANTAGE - PPO) [id number] Mery K Saul [id number] Douglas K Saul Notes Date Note Type Note Provider [...] concern today: Right cheek GARFIELD RIGGS MD [address] [place] [address], [phone] [place] [address] 08/08/2023 12:29:55 04/30/2024 text/html Here for a full body skin examination - last skin check:08/08/23 - history of skin cancer - {{BCC SCC MM BCC and SCC BCC and MM SCC and MM BCC, SCC, and MM*}} - last skin cancer was in {{2020#}} - spots of concern today: left elbow, above left eye , back of head In wheel chair and doesn't think he can sit on the table. May not be able to be put in gown GARFIELD RIGGS MD [address] [place] [address], [phone] [place] [address] 04/30/2024 19:56:07 10/30/2024 text/html Here for a [...] be put in gown GARFIELD RIGGS MD [address] [place] [address], [phone] 10/30/2024 12:54:15
== END 2025-02-04 23:59 ==
LOC: LAB.DROPOF 02-07 12:10
PROVIDERS: PCP Internal Medicine; Visit Provider Internal Medicine
DX: I48.91 Unspecified atrial fibrillation (principal); R00.1 Bradycardia, unspecified; E78.5 Hyperlipidemia, unspecified; I13.0 Hypertensive heart and chronic kidney disease with heart failure and stage 1 through stage 4 chronic kidney disease, or unspecified chronic kidney disease; N18.9 Chronic kidney disease, unspecified; I50.30 Unspecified diastolic (congestive) heart failure; I25.10 Atherosclerotic heart disease of native coronary artery without angina pectoris
CPT/HCPCS: 80053; 80061; 84439; 84443; 85025

== ENCOUNTER 2025-02-04 13:40 | Day surgery (SDC) | payer MEDICARE, SELFPAY ==
[2025-02-04 13:44] VITALS: BP 135/78; RESP 18; O2SAT 97
[2025-02-04 13:49] VITALS: BP 135/78; PULSE 42; RESP 16; TEMP 36.8; O2SAT 99; BMI 29.8
[2025-02-04] MEDS: BUPIVACAINE 0.25% 10ML INJ 25 MG IJ (13:56)
[2025-02-04] MEDS: LIDOCAINE 1% 5ML PF VIAL 5 ML (13:56)
[2025-02-04] MEDS: DEXAMETHASONE 10MG/ML 1ML VIAL 10 MG (13:56)
[2025-02-04 13:59] VITALS: BP 135/78; RESP 18; O2SAT 97
--- NOTE | 2025-02-04 14:10 | EXP.PAIN.PRO ---
Procedure Date: 02/04/25 Time: 13:30 Anesthesiologist:: Nima Benz CRNA Complications:: None Pre-procedure Diagnosis:: DJD right shoulder. Chronic right shoulder pain. Post-procedure Diagnosis:: Same. Indications for Procedure:: Patient is a very pleasant 89-year-old male who comes our clinic today for repeat right intra-articular shoulder injection of cortisone local anesthetic. Patient describes right shoulder pain as constant, dull, aching. Patient has 5/5 strength in the right arm however, limited range of motion secondary to right shoulder pain. He rates his pain 7/10. Procedure Details:: Procedure Details: Right shoulder intra-articular injection Informed consent was obtained risk and benefits of the procedure were explained to the patient. Patient was taken to the procedure room. The right shoulder was prepped using ChloraPrep. A 25-gauge needle was used posteriorly to inject 10 mL bupivacaine 0.25% and Depo-Medrol 40 mg. Patient tolerated procedure well with no complications. Plan and Disposition:: Patient was discharged without incident.
[2025-02-04 14:20] VITALS: BP 128/63; PULSE 51; RESP 16; O2SAT 97
== END 2025-02-04 14:20 | disposition home or self-care (01) ==
PROVIDERS: PCP Internal Medicine; Visit Provider Nurse Anesthetist, Certified Registered
DX: M19.011 Primary osteoarthritis, right shoulder (principal); M25.511 Pain in right shoulder; G89.29 Other chronic pain
CPT/HCPCS: 20610; J1100

== ENCOUNTER 2025-02-12 11:39 | Outpatient (CLI) | payer MEDICARE, SELFPAY ==
--- OUTSIDE RECORDS SUMMARY | 2025-02-12 11:42 | XMS_ITS | Data Portability ---
Author Organization [facility] CRUZ Bland OCEANA CLOSED Address [address] [facility] [address] [place] [address] Care Team Providers Care Cattle Killer Name Role Phone NAELKENNETHT Primary Care Provider [phone] GARFIELD NG Snap Attacher Assessment No assessment recorded. Plan of Treatment Reminders Order Date Submit Date Provider Last Modified By Organization Details Last Modified Time Details Appointments FOLLOW UP DAK 2024 11:30A M GARFIELD RIGGS MD Not available Not available Not available Lab surgical pathology study 2024 025 [facility], [address] [place] [address], [phone], 10/31/2024 14:50:31 surgical pathology study 2022 023 [facility], [address] [place] [address], [phone], 08/09/2023 12:58:40 Referral None recorded. Procedures None recorded. Surgeries None recorded. Imaging None recorded. Medication Orders None recorded. Patient TargetsNo targets recorded. Patient Instructions Encounter Date Encounter Id Patient Instructions Last Modified By Organization Details Last Modified Time 10/30/2024 [id number] Recommended returning to clinic in 6 months for FBSE Not available 10/30/2024 12:07:45 Reason for Referral None Reported. Results Created Date Observation Date Name Description Value Unit Range Abnormal Flag Note LastModifiedBy Organization Detail LastModifiedTime 10/30/1910/30/2024 SURGI CHRISTIANE surgical SEE BELOW abnormal [place] topat holog y Repor t NAME: DOUGLAS [...] Date: 10/31 13:33 1 Not Available [facility] [address] [place], [address], 10/31/2024 14:50:30 Result Notes None recorded. Problems Name Problem SNOMED Code Status Onset Date Resolution Date Notes Provider Name and Address Organization Details Recorded Time Arthritis 7428237 Active 2022 Kitaconor Clementswijhonny [facility] 3 10:05:44 Heart disease 53106874 Active 2022 Kitaconro Gonzalez [facility] 3 10:05:52 Hypertensive disorder 75276986 [facility] 3 10:06:01 History of malignant neoplasm of skin 986335143 Active 2023 [facility] 4 11:41:25 Notes:High Cholesterol Problem Notes None recorded. Procedures Surgical History Date Name Laterality Status Provider Name and Address Organization Details Recorded Time 5 DAK - Cryo AK completed [facility] 10/30/2024 12:07:39 5 DAK - ED&C; trunk,arm,leg completed [facility] 10/30/2024 12:12:21 4 DAK - Cryo AK completed [facility] 04/30/2024 11:46:59 4 DAK - Destruction BN Lesions completed [facility] 04/30/2024 11:44:37 3 Biopsy Skin Lesion; Tangential completed [facility] 08/08/2023 10:28:19 3 DAK - Cryo AK completed [facility] 08/08/2023 10:29:55 Imaging Results None recorded. Procedure [...] Tobacco Smoking Status Former Smoker [email or web address] 08/08/2023 10:06:52 When Did You Quit Smoking? 17+yearssinc elastcigaret te Information not available 08/08/2023 What Was The Date Of Your Most Recent Tobacco Screening? 10/30/2024 [email or web address] Information not available 10/30/2024 Sex: Unknown Functional [...] SNOMED-CT Code Diagnosis ICD10 Code Diagnosis Note [id number] GARFIELD RIGGS MD [address] [place] [address] 08/08/2023 09:49:09 08/08/2023 10:43:34 History of malignant neoplasm of skin 261490395 Z85.828 - No evidence of recurrence today- Call with any worrisome lesions or if treated lesions return- Return at regular intervals for skin exam as recommende d most recent 01/2023 Multiple b enign melanocytic nevi 258767588 D22.5 - Benign moles seen on exam [...] changing or worrisome lesions Seborrheic keratosis 394 449284 L82.1 - Benign overgrowth s of skin - Hereditary Senile angioma 4951560 I 78.1 - Benign blood vessel growths - Hereditary Solar lentigo 50761704 L 81.4 - Benign brown spots - Sun-induce d History of malignant melanoma of the skin 5824858528 08 Z85.820 Reiterated need for annual eye [...] ular neck, s/p WLE 2010 Actinic keratosis 542897 007 L57.0 Actinic keratoses are precancero us lesions that may progress to squamous cell carcinoma if untreated. UV light and genetics may increase risk. Treated lesions should blister, scab over, and heal within a few weeks. If treated lesion(s) does not resolve within 1-2 months, patient agrees to follow up for re-evaluat ion. Neoplasm o f uncertain behavior of skin 02100782 D48.5 Right medial baptism - ill-define d 1.5cm pink scaly patch - r/o AK vs SCC (Mohs if +) [id number] JUAN BENTLEY MD [address] [address] 12/14/2023 12:44:03 12/21/2023 11:28:53 [id number] GARFIELD RIGGS MD [address] [address] 04/30/2024 11:13:04 04/30/2024 11:52:37 History of malignant neoplasm of skin 027025037 Z85.828 - No evidence of recurrence today- Call with any worrisome lesions or if treated lesions return- Return at regular intervals for skin exam as recommende d most recent 09/2022 Seborrheic keratosis 394 982826 L82.1 - Benign overgrowth s of skin - Hereditary Senile angioma 3876786 I 78.1 - Benign blood vessel growths - Hereditary Solar lentigo 50670841 L 81.4 - Benign brown spots - Sun-induce d History of malignant melanoma of the skin 0797953127 08 Z85.820 Reiterated need for annual eye [...] ular neck, s/p WLE 2010 Actinic keratosis 233828 007 L57.0 Actinic keratoses are precancero us lesions that may progress to squamous cell carcinoma if untreated. UV light and genetics may increase risk. Treated lesions should blister, scab over, and heal within a few weeks. If treated lesion(s) does not resolve within 1-2 months, patient agrees to follow up for re-evaluat ion. Melanocyti c nevus of face 835125987 D22.39 Benign appearing nevi noted on exam. [...] types of skin cancers. Seborrheic dermatitis 50 281170 L21.8 Seborrheic dermatitis can cause itching, redness and dandruff in the scalp, brows, facial folds and chest. A yeast naturally found on the skin can overgrow and cause this reaction in some people. The condition may wax and wane.???Pt declines treatment today Inflamed s eborrheic keratosis 278150968 L82.0 R52 Counseled on benign nature. Pt elected to treat with liquid nitrogen due to painful irritation . May recur or persist after treatment. Discolorat ion or scarring is possible. [id number] GARFIELD RIGGS MD [address] [address] 10/30/2024 11:02:41 10/30/2024 12:30:53 History of malignant neoplasm of skin 011917598 Z85.828 - No evidence of recurrence today- Call with any worrisome lesions or if treated lesions return- Return at regular intervals for skin exam as recommende d most recent 09/2022 History of malignant melanoma of the skin 0457176859 08 Z85.820 Reiterated need for annual eye [...] WLE 2010 Multiple b enign melanocytic nevi 514320206 D22.5 - Benign moles seen on exam [...] changing or worrisome lesions Seborrheic keratosis 394 817507 L82.1 - Benign blood vessel growths - Hereditary Solar lentigo 17890580 L 81.4 - Benign brown spots - Sun-induce d Senile angioma 5732867 I 78.1 - Benign blood vessel growths - Hereditary Actinic keratosis 420634 007 L57.0 Actinic keratoses are precancero us lesions that may progress to squamous cell carcinoma if untreated. UV light and genetics may increase risk. Treated lesions should blister, scab over, and heal within a few weeks. If treated lesion(s) does not resolve within 1-2 months, patient agrees to follow up for re-evaluat ion. Neoplasm o f uncertain behavior of skin 89453055 D48.5 C44.629 Left AC fossa - 1.2cm [...] Member ID Bueno Member ID Guarantor Name 11/05/2024 1 [facility] (MEDICARE REPLACEMENT/A DVANTAGE - PPO) [id number] Mery K Saul [id number] Douglas K Saul Notes Date Note Type [...] concern today: Right cheek GARFIELD RIGGS MD [address] [place] [address], [phone] [place] [address] 08/08/2023 12:29:55 04/30/2024 text/html Here for a [...] be put in gown GARFIELD RIGGS MD [address] [place] [address], [phone] [place] [address] 04/30/2024 19:56:07 10/30/2024 text/html Here for a [...] be put in gown GARFIELD RIGGS MD [address] [place] [address], [phone] 10/30/2024 12:54:15
[2025-02-12 12:44] LABS: Microscopic, Urine URINE MICROSCOPIC (MICROSCOPIC)
[2025-02-12 12:47] LABS: Appearance,Urine CLEAR (Clear); Bilirubin,Urine Negative (Negative); Blood, Urine TRACE-I (Negative); Color,Urine BROWN (Yellow); Glucose,Urine (UA) 2+ (Negative); Ketones,Urine Negative (Negative); Leukocyte Esterase,Urine Negative (Negative); Nitrate,Urine POSITIVE (Negative); PH,Urine 5.5 (5.0-8.5); Protein,Urine 1+ (Negative); Specific Gravity, Urine 1.015 (1.005-1.030)
[2025-02-12 12:48] LABS: Basophils % 0.2 % (0.1-2.0); Eosinophils % 0.2 % (0.1-12.0); Hematocrit 33.7 % (42.0-52.0); Hemoglobin 11.3 g/dL (14.1-18.0); Immature Granulocytes # 0.09 10^3uL; Immature Granulocytes % 0.9 %; Lymphocytes # 0.8 K/mm3 (0.7-4.5); Lymphocytes % 7.4 % (10-50); Mean Corpuscular HGB Conc 33.5 g/dL (31.8-35.4); Mean Corpuscular Hemoglobin 31.7 pg (27.0-31.2); Mean Corpuscular Volume 94.4 fl (80-94); Mean Platelet Volume 11.6 fl (7.4-10.4); Monocytes # 1.3 K/mm3 (0.1-1.0); Monocytes % 12.7 % (1.7-9.3); Neutrophils % 78.6 % (37.0-80.0); Nucleated Red Blood Cells # 0 10^3/uL; Nucleated Red Blood Cells % 0 %; Platelet Count 138 K/mm3 (142-424); Red Blood Count 3.57 M/mm3 (4.60-6.20); Red Cell Distribution Width 13.9 % (11.5-17.5); Red Cell Distribution Width-SD 48.2 fL; White Blood Count 10.2 K/mm3 (4.8-10.8)
[2025-02-12 12:54] LABS: Bacteria,Urine Trace /lpf; Hyaline Casts,Urine OCC #/lpf (0); Squamous Epithelial Cell,Urine Occasional #/hpf (0-5)
[2025-02-12 13:32] LABS: Alanine Aminotransferase 13 U/L (12-78); Albumin Level 3.5 g/dl (3.5-5.0); Albumin/Globulin Ratio 1.4 (1.1-1.8); Alkaline Phosphatase 104 U/L (38-126); Anion Gap 11.9 mEq/L (5-15); Aspartate Amino Transferase 18 U/L (17-59); Bilirubin,Total 1.1 mg/dl (0.2-1.3); Blood Urea Nitrogen 39 mg/dl (9-20); Calcium 8.3 mg/dl (8.4-10.2); Carbon Dioxide 26 mmol/L (22.0-30.0); Chloride 102 mmol/L (98-107); Estimated Glomerular Filt Rate 32 ml/min (>60); GFR (African American) 38 ML/MIN (>60); Globulin 2.5 g/dL (1.3-3.2); Glucose 109 mg/dl (74-100); Potassium 3.9 mmoL/L (3.5-5.1); Sodium 136 mmol/L (136-145)
== END 2025-02-12 23:59 | disposition home or self-care (01) ==
PROVIDERS: PCP Internal Medicine; Visit Provider Nurse Practitioner Family
DX: N17.9 Acute kidney failure, unspecified (principal)
CPT/HCPCS: 80053; 81001; 85025; 87086

== ENCOUNTER 2025-02-18 15:53 | Outpatient (CLI) | payer MEDICARE, SELFPAY ==
--- NOTE | 2025-02-18 15:45 | CT_ITS ---
FINAL REPORT TECHNIQUE: Axial images through the abdomen and pelvis were performed without contrast. This study was performed with techniques to keep radiation doses as low as reasonably achievable, (ALARA). Individualized dose reduction techniques using automated exposure control or adjustment of mA and/or kV according to the patient's size were employed. CLINICAL HISTORY: Gross hematuria, right flank and right abdominal p COMPARISON: 11/26/2021 FINDINGS: Abdomen: There is scarring at the bases. The liver parenchyma is homogeneous. The gallbladder is present. The spleen, pancreas, and adrenals are unremarkable. There are several exophytic structures arising from the right kidney, probably due to benign cysts. Larger structure measures 2.5 cm. Pelvis: The urinary bladder is incompletely distended. The appendix is not visualized. There is no pelvic mass or inflammation. Streak artifact is seen from posterior fusion hardware bridging L3-4 and L4-5. There are advanced changes of degenerative disc disease. IMPRESSION: Several right renal cysts. Pre and post infused evaluation is necessary to fully characterize in the setting of gross hematuria. Reviewed, Interpreted and Dictated by Jassi Chaudhry MD Transcribed by Snow Tapia Authenticated and [facility]
== END 2025-02-18 23:59 | disposition home or self-care (01) ==
PROVIDERS: PCP Internal Medicine; Visit Provider Internal Medicine
DX: N28.1 Cyst of kidney, acquired (principal); R31.0 Gross hematuria; R10.9 Unspecified abdominal pain
CPT/HCPCS: 74176

== ENCOUNTER 2025-03-03 09:34 | Outpatient (POV) | payer MEDICARE, SELFPAY ==
--- NOTE | 2025-03-03 09:37 | XR_ITS ---
FINAL REPORT CLINICAL HISTORY: right shoulder pain pt states that he got a shot 4 weeks ago and hasn't been able to lift arm since. pain and limited rom COMPARISON: None FINDINGS: RIGHT SHOULDER Three views demonstrate no acute fracture or dislocation. There is advanced narrowing of the glenohumeral joint with subchondral sclerosis and degenerative cyst formation. The soft tissues are unremarkable. IMPRESSION: Moderate osteoarthritis of the glenohumeral joint. Reviewed, Interpreted and Dictated by Jassi Chaudhry MD Transcribed by Viridiana Goetz Authenticated and [facility]
[2025-03-03 15:17] VITALS: BP 124/59; PULSE 80; RESP 14; O2SAT 94; BMI 27.8
--- NOTE | 2025-03-03 16:05 | A.OFFVIS_ITS ---
[facility] Disclaimer: The information contained in this section may have been updated after the patient was seen, as this information can be updated by other users. Medical History Right shoulder pain Left hip pain Left buttock pain Low back pain Lumbar radicular pain Trochanteric bursitis, left hip Joint effusion Acute shoulder pain Thrombocytopenia Kidney failure Primary osteoarthritis, right shoulder Primary generalized (osteo)arthritis Constipation Atherosclerotic heart disease of [place] coronary artery without angina pectoris HTN (hypertension) GERD (gastroesophageal reflux disease) HLD (hyperlipidemia) Family History Other Unknown family medical history Social History Smoking Status: Former smoker alcohol intake: never substance use type: denies use current occupational status: other Travel in the last 8 weeks?: None PM Subjective & Objective Subjective Subjective:: Patient is a pleasant 89-year-old male who presents today for severe pain of his right shoulder. He rates it a 10 out of 10. Patient states all this started following his last injection with our office for a intra-articular shoulder injection. He states the day of the procedure he did not have any sharp shooting pains however very shortly after that within a day or so he was experiencing much more severe pain. 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 Patient states he cannot even write with that extremity. He states the simplest movements are very painful. Patient is currently getting physical therapy at [facility] and states he has had some improvement but overall feels like it is just so severe that he cannot function. Patient did have x-ray imaging today and then went and saw Dr. Colunga's office here at [facility] who did tell him that it was just severe osteoarthritis. Patient is interested in any help we may be able to provide. Patient does present today with his son at his visit. Patient is a resident at [facility] and he is prescribed compounded cream from our office and is getting pain medication of [place] there at the facility however he states he does not think he has had it in the last couple of days. Patient has had his Jerome reviewed and is appropriate. Review of Systems: General: No recent weight changes, no fever, no sleep disturbances Respiratory: No cough, no shortness of air, no recurring pulmonary infections Cardiovascular/peripheral vascular: No chest pain, no palpitations, no edema, no shortness of breath Gastrointestinal: No new onset incontinence, normal bowel movements reported Genitourinary: No new onset incontinence Musculoskeletal: Right shoulder pain Psychiatric: [Normal mood/affect] Neurological: [Denies weakness in extremities], [denies balance issues] Pain at rest (0-10 scale): 10 Objective Objective:: Physical Exam: General: Alert and oriented x3, no acute distress, pleasant and cooperative Lungs: Respirations even and unlabored, symmetrical chest expansion Eyes: PERRL Musculoskeletal: Flexion and extension of right shoulder somewhat guarded secondary to pain, 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 compared to the left, point tenderness Neurological: Speech clear, no gross sensory deficit Has patient had previous pain injection?: No Conservative treatment options previously tried: Home exercise plan Length of treatment: Longer than 12 weeks and Physical Therapy Length of treatment: Ongoing Meds Home Medications and Allergies Home Medications ?Medication ?Instructions ?Recorded ?Confirmed ?Type aspirin 81 mg tablet,delayed 81 mg PO DAILY 11/27/18 0 03/03/25 History release (Adult Low Dose Aspirin) atorvastatin 40 mg tablet 40 mg PO DAILY #90 tabs 02/2403/03/25 Rx cyanocobalamin (vitamin B-12) 1,000 mcg PO DAILY #100 caps 04/19/24 03/03/25 Rx 1,000 mcg capsule hydrocodone 5 mg-acetaminophen 325 1 tab PO DAILY #30 tabs 07/15/24 03/03/25 Rx mg tablet doxazosin 4 mg tablet 4 mg PO DAILY 07/24/2403/03 History esomeprazole magnesium 40 mg 40 mg PO DAILY 07/24/24 0 03/03/25 History capsule,delayed release finasteride 5 mg tablet 5 mg PO DAILY 07/24/2403/03 History bumetanide 1 mg tablet 2 mg (2 x 1 mg) PO Q8H 7 day s #42 07/26/24 03/03/25 Rx tabs dapagliflozin propanediol 10 mg 10 mg PO DAILY 30 days #30 tabs 07/26/24 03/03/25 Rx tablet (Farxiga) levofloxacin 750 mg tablet 750 mg PO DAILY #5 tabs 03/1803/03/25 Rx polyethylene glycol 3350 17 17 g PO DAILY #510 grams 1 11/20/23 03/03/25 Rx gram/dose oral powder (Miralax) apixaban 2.5 mg tablet (Eliquis) 2.5 mg PO BID To thin blood #180 02/04/25 03/03/25 Rx tabs metoprolol succinate 50 mg 25 mg PO DAILY 02/04/2506/19 History tablet,extended release 24 hr diclofenac sodium 1 % topical gel 2 g topical QID #100 grams 03/03/25 03/03/25 Rx (Voltaren Arthritis Pain) New Prescriptions to Start Prescriptions: Allergies Allergy/AdvReac Type Severity Reaction Status Date / Time No Known Allergies Allergy Verified 03/03/25 10:06 Assessment and Plan *Assessment and plan (1) Arthritis of right shoulder: Status: Acute Category: Medical Code(s): M19.011 - Primary osteoarthritis, right shoulder (2) Right shoulder pain: Status: Acute Category: Medical Code(s): M25.511 - Pain in right shoulder Plan Patient did have very limited range of motion of his shoulder with flexion and extension. 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 This is a significant change from previous where he was just having increased pain in the joint itself. Patient did also have a positive drop test and I did credit support counselor him that I have high concerns that he does have a tear and may need surgical intervention such as a shoulder arthroscopy. We did review over his options. Patient does state he would like to proceed forward with the imaging. I will order MRI without contrast of his shoulder and have him tentatively follow-up in clinic in 2 weeks. He was counseled to make sure that he is taking his pain medication as prescribed twice a day and also that he can still use the compounded cream in combination with lidocaine patches for better improvement. Patient will follow-up following his imaging for reevaluation of symptoms and plan of care. Patient has been instructed to contact the clinic with any concerns before the next appointment. Dr. Chavez has reviewed this note and agrees with this plan of care. This note was dictated using voice recognition software and make contain errors or omissions. All injections are used with Lidocaine, Bupivacaine and dexamethasone. Occasionally urine drug screen is needed to verify patient's compliance with our office pain contract. This is ordered based off specific treatments related to chronic pain with the potential to abuse certain medications.
== END 2025-03-03 23:59 | disposition home or self-care (01) ==
LOC: SC.PAIN 09:35
PROVIDERS: PCP Nurse Practitioner Family; Visit Provider Nurse Practitioner Family
DX: M19.011 Primary osteoarthritis, right shoulder (principal); Z79.891 Long term (current) use of opiate analgesic
CPT/HCPCS: 73030; 99212; G0463

== ENCOUNTER 2025-03-14 13:27 | Outpatient (CLI) | payer MEDICARE, SELFPAY ==
--- NOTE | 2025-03-14 13:30 | MR_ITS ---
FINAL REPORT TECHNIQUE: Multiplanar and multisequence imaging of the shoulder was obtained without contrast. CLINICAL HISTORY: RT SHOULDER PAIN, LIMITED ROM FINDINGS: Bones and joints: Exam is limited by motion artifact. There is advanced degenerative joint disease involving the acromioclavicular and glenohumeral joints. There is bone marrow edema in the humeral head, likely reactive. No fracture is identified. Rotator cuff: There is significant tendinopathy of the supraspinatus and infraspinatus tendons. There are at least partial thickness articular sided tears of both tendons. The subscapularis tendon is intact. There is fatty atrophy of all the rotator cuff muscles. Labrum: The biceps labral complex is not seen. The labrum is abnormal anteriorly and posteriorly likely with tearing. The inferior glenohumeral ligament is intact. Other: There is a large significant joint effusion. Remaining soft tissues are within normal limits. IMPRESSION: Significant rotator cuff tendinopathy with fatty atrophy. No normal-appearing labrum or biceps labral complex. Reviewed, Interpreted and Dictated by Eliza Suazo MD Transcribed by Snow Tapia Authenticated and [facility]
--- OUTSIDE RECORDS SUMMARY | 2025-03-14 13:30 | XMS_ITS | Data Portability ---
Author Organization [facility] CRUZ Bland [place] [facility] Address [address] [place] [address] Care Team Providers Care Screen Print Operator Name Role Phone NAELKENNETHT Primary Care Provider [phone] GARFIELD NG Business Transformation Analyst Assessment No assessment recorded. Plan of Treatment Reminders Order Date Submit Date Provider Last Modified By Organization Details Last Modified Time Details Appointments FOLLOW UP DAK 2024 11:30A M GARFIELD RIGGS MD Not available Not available Not available Lab surgical pathology study 2024 025 [facility], [address] [place] [address], [phone], 10/31/2024 14:50:31 surgical pathology study 2022 023 [facility], [address] [place] [address], [phone], 08/09/2023 12:58:40 Referral None recorded. Procedures None recorded. Surgeries None recorded. Imaging None recorded. Medication Orders None recorded. Patient TargetsNo targets recorded. Patient Instructions Encounter Date Encounter Id Patient Instructions Last Modified By Organization Details Last Modified Time 10/30/2024 [id number] Recommended returning to clinic in 6 months for FBSE [email or web address] Not available 10/30/2024 12:07:45 Reason for Referral None Reported. Results Created Date Observation Date Name Description Value Unit Range Abnormal Flag Note LastModifiedBy Organization Detail LastModifiedTime 10/30/1910/30/2024 SURGI CHRISTIANE surgical SEE BELOW abnormal [place] topat holog y Repor t NAME: DOUGLAS [...] Out Date: 10/31 13:33 1 Not Available [facility] [address] [place], [phone], 10/31/2024 14:50:30 Result Notes None recorded. Problems Name Problem SNOMED Code Status Onset Date Resolution Date Notes Provider Name and Address Organization Details Recorded Time Arthritis 9670775 Active 2022 Kitaconor Clementswajhonny [facility] 3 10:05:44 Heart disease 68679690 Active 2022 Kitaconor Gonzalez [facility] 3 10:05:52 Hypertensive disorder 52490940 [facility] 10:06[facility]01 History of malignant neoplasm of skin 789668536 Active 2023 [facility] 4 11:41:25 Notes:High Cholesterol Problem Notes None recorded. Procedures Surgical History Date Name Laterality Status Provider Name and Address Organization Details Recorded Time 5 DAK - Cryo AK completed [facility] 10/30/2024 12:07:39 5 DAK - ED&C; trunk,arm,leg completed [facility] 10/30/2024 12:12:21 4 DAK - Cryo AK completed [facility] 04/30/2024 11:46:59 4 DAK - Destruction BN Lesions completed [facility] 04/30/2024 11:44:37 3 Biopsy Skin Lesion; Tangential completed [facility] 08/08/2023 10:28:19 3 DAK - Cryo AK completed [facility] 08/08/2023 10:29:55 Imaging Results None recorded. [...] Tobacco Smoking Status [facility] 08/08/2023 10:06:52 When Did You Quit Smoking? 16+yearssinc elastcigaret te Information not available 08/08/2023 What Was The Date Of Your Most Recent Tobacco Screening? 10/30/2024 Information not available 10/30/2024 Sex: Unknown Functional [...] History Nothing Reported. Medical History Condition Response Melanoma Y Skin Cancer Past Encounters Encounter ID Performer Location Encounter Start Date Encounter Closed Date Diagnosis/Indication Diagnosis SNOMED-CT Code Diagnosis ICD10 Code Diagnosis Note [id number] GARFIELD RIGGS MD [place] [address] [place] [address] 08/08/2023 09:49:09 08/08/2023 10:43:34 History of malignant neoplasm of skin 276028583 Z85.828 - No evidence of recurrence today- Call with any worrisome lesions or if treated lesions return- Return at regular intervals for skin exam as recommende d most recent 01/2023 Multiple b enign melanocytic nevi 875353397 D22.5 - Benign moles seen on exam [...] changing or worrisome lesions Seborrheic keratosis 394 109981 L82.1 - Benign overgrowth s of skin - 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 UV light and genetics may increase risk. Treated lesions should blister, scab over, and heal within a few weeks. If treated lesion(s) does not resolve within 1-2 months, patient agrees to follow up for re-evaluat ion. Neoplasm o f uncertain behavior of skin 05073166 D48.5 Right medial baptism - ill-define d 1.5cm pink scaly patch - r/o AK vs SCC (Mohs if +) [id number] JUAN BENTLEY MD [address] [address] 12/14/2023 12:44:03 12/21/2023 11:28:53 [id number] GARFIELD RIGGS MD [address] [address] 04/30/2024 11:13:04 04/30/2024 11:52:37 History of malignant neoplasm of skin 102205454 Z85.828 - No evidence of recurrence today- Call with any worrisome lesions or if treated lesions return- Return at regular intervals for skin exam as recommende d most recent 09/2022 Seborrheic keratosis 394 041240 L82.1 - Benign overgrowth s of skin - Hereditary Senile angioma 6953603 I 78.1 - Benign blood vessel growths - Hereditary Solar lentigo 41149712 L 81.4 - Benign brown spots - Sun-induce d History of malignant melanoma of the skin 9404096129 08 Z85.820 Reiterated need for annual eye [...] ular neck, s/p WLE 2010 Actinic keratosis 364207 007 L57.0 Actinic keratoses are precancero us lesions that may progress to squamous cell carcinoma if untreated. UV light and genetics may increase risk. Treated lesions should blister, scab over, and heal within a few weeks. If treated lesion(s) does not resolve within 1-2 months, patient agrees to follow up for re-evaluat ion. Melanocyti c nevus of face 658911895 D22.39 Benign appearing nevi noted on exam. [...] types of skin cancers. Seborrheic dermatitis 50 175566 L21.8 Seborrheic dermatitis can cause itching, redness and dandruff in the scalp, brows, facial folds and chest. A yeast naturally found on the skin can overgrow and cause this reaction in some people. The condition may wax and wane. Pt declines treatment today Inflamed s eborrheic keratosis 378344786 L82.0 R52 Counseled on benign nature. Pt elected to treat with liquid nitrogen due to painful irritation . May recur or persist after treatment. Discolorat ion or scarring is possible. [id number] GARFIELD RIGGS MD [address] [address] 10/30/2024 11:02:41 10/30/2024 12:30:53 History of malignant neoplasm of skin 734266883 Z85.828 - No evidence of recurrence today- Call with any worrisome lesions or if treated lesions return- Return at regular intervals for skin exam as recommende d most recent 09/2022 History of malignant melanoma of the skin 6066432424 08 Z85.820 Reiterated need for annual eye [...] WLE 2010 Multiple b enign melanocytic nevi 137285806 D22.5 - Benign moles seen on exam [...] changing or worrisome lesions Seborrheic keratosis 394 943873 L82.1 - Benign blood vessel growths - Hereditary Solar lentigo 28989135 L 81.4 - Benign brown spots - Sun-induce d Senile angioma 3845703 I 78.1 - Benign blood vessel growths - Hereditary Actinic keratosis 945517 007 L57.0 Actinic keratoses are precancero us lesions that may progress to squamous cell carcinoma if untreated. UV light and genetics may increase risk. Treated lesions should blister, scab over, and heal within a few weeks. If treated lesion(s) does not resolve within 1-2 months, patient agrees to follow up for re-evaluat ion. Neoplasm o f uncertain behavior of skin 61614710 D48.5 C44.629 Left AC fossa - 1.2cm [...] ID Guarantor Name 11/05/2024 1 [facility] (MEDICARE REPLACEMENT/A DVANTAGE - PPO) [id number] Mery K Saul [id number] Douglas Hughes Notes Date Note Type Note Provider Name and Address Organization Details Recorded Time 08/08/2023 text/html Here for a full body skin examination - last skin check:January 2023- history of skin cancer - BCC, SCC, and MM- last skin cancer was in 2022- spots of concern today: Right cheek GARFIELD RIGGS MD [address] [place] [address], [phone], [facility] 08/08/2023 12:29:55 04/30/2024 text/html Here for a full body skin examination - last skin check:08/08/23 - history of skin cancer - BCC, SCC, and MM - last skin cancer was in 2020 - spots of concern today: left elbow, above left eye , back of head In wheel chair and doesn't think he can sit on the table. May not be able to be put in gown GARFIELD RIGGS MD [address] [place] [address], [phone], [facility] 04/30/2024 19:56:07 10/30/2024 text/html Here for a waist up skin examination. - last skin check: April 2024- history of skin cancer - BCC, SCC, and MM- last skin cancer was in 2020- spots of concern today: Right hand, left wrist, right ear, left elbow. In wheel chair and doesn't think he can sit on the table. May not be able to be put in gown GARFIELD RIGGS MD [address] [place] [address], [phone], [facility] 10/30/2024 12:54:15
== END 2025-03-14 23:59 | disposition home or self-care (01) ==
LOC: RAD 13:27
PROVIDERS: PCP Nurse Practitioner Family; Visit Provider Nurse Practitioner Family
DX: M67.811 Other specified disorders of synovium, right shoulder (principal); M62.511 Muscle wasting and atrophy, not elsewhere classified, right shoulder
CPT/HCPCS: 73221

== ENCOUNTER 2025-03-17 11:31 | Outpatient (POV) | payer MEDICARE, SELFPAY ==
[2025-03-17 12:07] VITALS: BP 117/57; PULSE 69; RESP 18; O2SAT 96; BMI 27.4
--- NOTE | 2025-03-17 12:13 | EXP.PAIN.SOA ---
[facility] Disclaimer: The information contained in this section may have been updated after the patient was seen, as this information can be updated by other users. Medical History Right shoulder pain Left hip pain Left buttock pain Low back pain Lumbar radicular pain Trochanteric bursitis, left hip Joint effusion Acute shoulder pain Thrombocytopenia Kidney failure Primary osteoarthritis, right shoulder Primary generalized (osteo)arthritis Constipation Atherosclerotic heart disease of [place] coronary artery without angina pectoris HTN (hypertension) GERD (gastroesophageal reflux disease) HLD (hyperlipidemia) Family History Other Unknown family medical history Social History Smoking Status: Former smoker alcohol intake: never substance use type: denies use current occupational status: other Travel in the last 8 weeks?: None PM Subjective & Objective Subjective Subjective:: Patient is a pleasant 89-year-old male who presents today for follow-up of his right shoulder MRI. Today he rates his pain a 7 out of 10. He does state that the pain has improved a little bit from our last visit. He has been able to do more movements with the arm and is continuing to have physical therapy there at the facility. He states he will occasionally still have back catching sensation but it is not nearly as severe as what it previously was. He denies any new falls or injuries. He does state that he has been using the compounded cream more frequently and that that does seem to help as well. His Jerome has been reviewed and is appropriate. Review of Systems: General: No recent weight changes, no fever, no sleep disturbances Respiratory: No cough, no shortness of air, no recurring pulmonary infections Cardiovascular/peripheral vascular: No chest pain, no palpitations, no edema, no shortness of breath Gastrointestinal: No new onset incontinence, normal bowel movements reported Genitourinary: No new onset incontinence Musculoskeletal: Right shoulder pain Psychiatric: [Normal mood/affect] Neurological: [Denies weakness in extremities], [denies balance issues] Pain at rest (0-10 scale): 7 Objective Objective:: Physical Exam: General: Alert and oriented x3, no acute distress, pleasant and cooperative Lungs: Respirations even and unlabored, symmetrical chest expansion Eyes: PERRL Musculoskeletal: Flexion and extension of right shoulder somewhat guarded secondary to pain, [antalgic gait noted] Neurological: Speech clear, no gross sensory deficit Has patient had previous pain injection?: No Conservative treatment options previously tried: Home exercise plan Length of treatment: Longer than 12-week Meds Home Medications and Allergies Home Medications ?Medication ?Instructions ?Recorded ?Confirmed ?Type aspirin 81 mg tablet,delayed 81 mg PO DAILY 11/27/18 03/03/25 History release (Adult Low Dose Aspirin) atorvastatin 40 mg tablet 40 mg PO DAILY #90 tabs 03/20/24 03/03/25 Rx cyanocobalamin (vitamin B-12) 1,000 mcg PO DAILY #100 caps 04/19/24 03/03/25 Rx 1,000 mcg capsule hydrocodone 5 mg-acetaminophen 325 1 tab PO DAILY #30 tabs 07/15/24 03/03/25 Rx mg tablet doxazosin 4 mg tablet 4 mg PO DAILY 07/24/24 03/03/25 History esomeprazole magnesium 40 mg 40 mg PO DAILY 07/24/24 03/03/25 History capsule,delayed release finasteride 5 mg tablet 5 mg PO DAILY 07/24/24 03/03/25 History bumetanide 1 mg tablet 2 mg (2 x 1 mg) PO Q8H 7 days #42 07/26/24 03/03/25 Rx tabs dapagliflozin propanediol 10 mg 10 mg PO DAILY 30 days #30 tabs 07/26/24 03/03/25 Rx tablet (Farxiga) levofloxacin 750 mg tablet 750 mg PO DAILY #5 tabs 07/31/24 03/03/25 Rx apixaban 2.5 mg tablet (Eliquis) 2.5 mg PO BID To thin blood #180 02/04/25 03/03/25 Rx tabs metoprolol succinate 50 mg 25 mg PO DAILY 02/04/25 03/03/25 History tablet,extended release 24 hr diclofenac sodium 1 % topical gel 2 g topical QID #100 grams 03/03/25 03/03/25 Rx (Voltaren Arthritis Pain) diazepam 2 mg tablet 2 mg PO ONCE #1 tab 03/06/25 Rx polyethylene glycol 3350 17 See Rx Instructions .Route 03/07/25 Rx gram/dose oral powder .COMPLEX #510 grams New Prescriptions to Start Prescriptions: Allergies Allergy/AdvReac Type Severity Reaction Status Date / Time No Known Allergies Allergy Verified 03/03/25 10:06 Assessment and Plan *Assessment and plan (1) Arthritis of right shoulder: Status: Acute Category: Medical Code(s): M19.011 - Primary osteoarthritis, right shoulder (2) Right shoulder pain: Status: Acute Category: Medical Code(s): M25.511 - Pain in right shoulder (3) Rotator cuff tear arthropathy of right shoulder: Status: Acute Category: Medical Code(s): M75.101 - Unspecified rotator cuff tear or rupture of right shoulder, not specified as traumatic; M12.811 - Other specific arthropathies, not elsewhere classified, right shoulder Plan I did review over with the patient regarding his findings of his right shoulder MRI. Patient did have both infraspinatus and supraspinatus tears with suspected labrum tear. I did discuss with the patient that we can send him back for follow-up with Dr. Colunga here at [facility]. Patients son did state that as of the last 2 visits they did not really offer any additional options for his pain. Patient is interested in having another opinion. We will send him for referral to [facility] for possible shoulder scope evaluation. Patient and his son do agree with this plan of care. We will have him follow back up in our office in 1 month. Patient's son is requesting the referral be put under his #[phone]. Patient has been instructed to contact the clinic with any concerns before the next appointment. Dr. Chavez has reviewed this note and agrees with this plan of care. This note was dictated using voice recognition software and make contain errors or omissions. All injections are used with Lidocaine, Bupivacaine and dexamethasone. Occasionally urine drug screen is needed to verify patient's compliance with our office pain contract. This is ordered based off specific treatments related to chronic pain with the potential to abuse certain medications.
== END 2025-03-17 23:59 | disposition home or self-care (01) ==
LOC: SC.PAIN 11:33
PROVIDERS: PCP Internal Medicine; Visit Provider Nurse Practitioner Family
DX: M19.011 Primary osteoarthritis, right shoulder (principal); M75.101 Unspecified rotator cuff tear or rupture of right shoulder, not specified as traumatic
CPT/HCPCS: 99212; G0463

== ENCOUNTER 2025-04-04 10:56 | Outpatient (CLI) | payer MEDICARE, SELFPAY ==
--- OUTSIDE RECORDS SUMMARY | 2025-04-04 10:59 | XMS_ITS | Data Portability ---
Author Organization [facility] SHIRIN BlandS [place] [facility] Address [address] [facility] [address] [place] [address] Care Team Providers Care Release Of Information Specialist Name Role Phone VERONICA NAYAK Primary Care Provider [phone] GARFIELD NG Phlebotomy Services Technician Assessment No assessment recorded. Plan of Treatment Reminders Order Date Submit Date Provider Last Modified By Organization Details Last Modified Time Details Appointments FOLLOW UP DAK 2024 11:30A M GARFIELD RIGGS MD Not available Not available Not available Lab surgical pathology study 2024 025 [facility], [address] [place] [address], [id number], 10/31/2024 14:50:31 surgical pathology study 2022 023 [facility], [address] [place] [address], [id number], 08/09/2023 12:58:40 Referral None recorded. Procedures None recorded. Surgeries None recorded. Imaging None recorded. Medication Orders None recorded. Patient TargetsNo targets recorded. Patient Instructions Encounter Date Encounter Id Patient Instructions Last Modified By Organization Details Last Modified Time 10/30/2024 [id number] Recommended returning to clinic in 6 months for FBSE [email or web address] Not available 10/30/2024 12:07:45 Reason for Referral None Reported. Results Created Date Observation Date Name Description Value Unit Range Abnormal Flag Note LastModifiedBy Organization Detail LastModifiedTime 10/30/1910/30/2024 SURGI CHRISTIANE surgical SEE BELOW abnormal W[place]et topat holog y Repor t NAME: DOUGLAS [...] Out Date: 10/31 13:33 1 Not Available [facility] [place], [address], 10/31/2024 14:50:30 Result Notes None recorded. Problems Name Problem SNOMED Code Status Onset Date Resolution Date Notes Provider Name and Address Organization Details Recorded Time Arthritis 9520978 Active 2022 Kitaconor Clementsmtjhonny [facility] 3 10:05:44 Heart disease 67368542 Active 2022 Kitaconor Gonzalez [facility] 3 10:05:52 Hypertensive disorder 68173787 [facility] 10:06:01 History of malignant neoplasm of skin 169575616 Active 2023 [facility] 4 11:41:25 Notes:High Cholesterol Problem Notes None recorded. Procedures Surgical History Date Name Laterality Status Provider Name and Address Organization Details Recorded Time 5 DAK - Cryo AK completed [facility] 10/30/2024 12:07:39 5 DAK - ED&C; trunk,arm,leg completed Janell Amaral [facility] 10/30/2024 12:12:21 4 DAK - Cryo AK completed [facility] 04/30/2024 11:46:59 4 DAK - Destruction BN Lesions completed [facility] 04/30/2024 11:44:37 3 Biopsy Skin Lesion; Tangential completed [facility] 08/08/2023 10:28:19 3 DAK - Cryo AK completed [facility] 08/08/2023 10:29:55 Imaging Results None recorded. [...] Tobacco Smoking Status Former Smoker Kita Carlos [facility] 08/08/2023 10:06:52 When Did You Quit Smoking? 17+yearssinc elastcigaret te Information not available 08/08/2023 What Was The Date Of Your Most Recent Tobacco Screening? 10/30/2024 [email or web address] Information not available 10/30/2024 Sex: Unknown Functional [...] SNOMED-CT Code Diagnosis ICD10 Code Diagnosis Note [id number] GARFIELD RIGGS MD [address] [place] [address] 08/08/2023 09:49:09 08/08/2023 10:43:34 History of malignant neoplasm of skin 657660341 Z85.828 - No evidence of recurrence today- Call with any worrisome lesions or if treated lesions return- Return at regular intervals for skin exam as recommende d most recent 01/2023 Multiple b enign melanocytic nevi 275751484 D22.5 - Benign moles seen on exam [...] changing or worrisome lesions Seborrheic keratosis 394 494333 L82.1 - Benign overgrowth s of skin - Hereditary 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 UV light and genetics may increase risk. Treated lesions should blister, scab over, and heal within a few weeks. If treated lesion(s) does not resolve within 1-2 months, patient agrees to follow up for re-evaluat ion. Neoplasm o f uncertain behavior of skin 42750074 D48.5 Right medial yarsanism - ill-define d 1.5cm pink scaly patch - r/o AK vs SCC (Mohs if +) [id number] JUAN BENTLEY MD [address] [address] 12/14/2023 12:44:03 12/21/2023 11:28:53 [id number] GARFIELD RIGGS MD [address] [address] 04/30/2024 11:13:04 04/30/2024 11:52:37 History of malignant neoplasm of skin 847355169 Z85.828 - No evidence of recurrence today- Call with any worrisome lesions or if treated lesions return- Return at regular intervals for skin exam as recommende d most recent 09/2022 Seborrheic keratosis 394 331281 L82.1 - Benign overgrowth s of skin - Hereditary Senile angioma 3180432 I 78.1 - Benign blood vessel growths - Hereditary Solar lentigo 94288949 L 81.4 - Benign brown spots - Sun-induce d History of malignant melanoma of the skin 9623011752 08 Z85.820 Reiterated need for annual eye [...] ular neck, s/p WLE 2010 Actinic keratosis 159916 007 L57.0 Actinic keratoses are precancero us lesions that may progress to squamous cell carcinoma if untreated. UV light and genetics may increase risk. Treated lesions should blister, scab over, and heal within a few weeks. If treated lesion(s) does not resolve within 1-2 months, patient agrees to follow up for re-evaluat ion. Melanocyti c nevus of face 245473639 D22.39 Benign appearing nevi noted on exam. [...] types of skin cancers. Seborrheic dermatitis 50 811657 L21.8 Seborrheic dermatitis can cause itching, redness and dandruff in the scalp, brows, facial folds and chest. A yeast naturally found on the skin can overgrow and cause this reaction in some people. The condition may wax and wane. Pt declines treatment today Inflamed s eborrheic keratosis 591975977 L82.0 R52 Counseled on benign nature. Pt elected to treat with liquid nitrogen due to painful irritation . May recur or persist after treatment. Discolorat ion or scarring is possible. [id number] GARFIELD RIGGS MD [address] [address] 10/30/2024 11:02:41 10/30/2024 12:30:53 History of malignant neoplasm of skin 891061839 Z85.828 - No evidence of recurrence today- Call with any worrisome lesions or if treated lesions return- Return at regular intervals for skin exam as recommende d most recent 09/2022 History of malignant melanoma of the skin 6310061714 08 Z85.820 Reiterated need for annual eye [...] WLE 2011 Multiple b enign melanocytic nevi 010796022 D22.5 - Benign moles seen on exam [...] changing or worrisome lesions Seborrheic keratosis 394 717354 L82.1 - Benign blood vessel growths - Hereditary Solar lentigo 34438250 L 81.4 - Benign brown spots - Sun-induce d Senile angioma 9458524 I 78.1 - Benign blood vessel growths - Hereditary Actinic keratosis 079748 007 L57.0 Actinic keratoses are precancero us lesions that may progress to squamous cell carcinoma if untreated. UV light and genetics may increase risk. Treated lesions should blister, scab over, and heal within a few weeks. If treated lesion(s) does not resolve within 1-2 months, patient agrees to follow up for re-evaluat ion. Neoplasm o f uncertain behavior of skin 39527975 D48.5 C44.629 Left AC fossa - 1.2cm [...] ID Guarantor Name 11/05/2024 1 [facility] (MEDICARE REPLACEMENT/A DVANTAGE - PPO) [id number] Mery Hughes [id number] Douglas Hughes Notes Date Note Type Note Provider Name and Address Organization Details Recorded Time 08/08/2023 text/html Here for a full body skin examination - last skin check:January 2023- history of skin cancer - BCC, SCC, and MM- last skin cancer was in 2022- spots of concern today: Right cheek GARFIELD RIGGS MD [address] [place] [address] [place], [address], [facility] 08/08/2023 12:29:55 04/30/2024 text/html Here for [...] be put in gown GARFIELD RIGGS MD [address] [place] [address] [place], [address], [facility] 04/30/2024 19:56:07 10/30/2024 text/html Here for [...] be put in gown GARFIELD RIGGS MD [facility] [place], [address], [facility] 10/30/2024 12:54:15
--- NOTE | 2025-04-04 11:02 | FL_ITS ---
FINAL REPORT CLINICAL HISTORY: DYSPHAGIA 1.35 min DAP 1496.12 FINDINGS: UPPER GI EXAM HISTORY: Dysphagia. PROCEDURE: The patient ingested barium. Spot and overhead films were obtained. FINDINGS: The esophagus is normal. There is no hiatal hernia. There is moderate gastroesophageal reflux. There is marked elevation of the right hemidiaphragm in the distal stomach and proximal duodenum reside in the right lower chest. This results in mild delay in gastric emptying. There are prominent duodenal loop suggestive of duodenitis. Fluoroscopy time: 1.35 minutes Fluoro dose: 1496.12 DAP in uGym2 IMPRESSION: 1. Marked elevation of the right hemidiaphragm with the distal stomach and proximal duodenum in the right lower chest. 2. Moderate gastroesophageal reflux. 3. Mild duodenitis. Films reviewed , interpreted and dictated by Dr. Phan. Transcribed by Luis Whelan PA-C. Reviewed, Interpreted and Dictated by Nita Phan MD Transcribed by BASIA Wahl Authenticated and . [facility]
[2025-04-04] MEDS: BARIUM SULFATE (E-Z-HD 340GM);135ML BOTTLE 135 ML PO (11:31)
== END 2025-04-04 23:59 | disposition home or self-care (01) ==
LOC: RAD 10:57
PROVIDERS: PCP Internal Medicine; Visit Provider Nurse Practitioner Family
DX: K21.9 Gastro-esophageal reflux disease without esophagitis (principal); Q79.1 Other congenital malformations of diaphragm; K29.80 Duodenitis without bleeding
CPT/HCPCS: 74246

== ENCOUNTER 2025-04-23 13:21 | Outpatient (POV) | payer MEDICARE, SELFPAY ==
--- OUTSIDE RECORDS SUMMARY | 2025-04-23 13:26 | XMS_ITS | Clinical Summary ---
Author Organization [facility] Address [address] [place] [address] Care Team Providers Care Realty Loan Specialist Name Role Phone Oseas Kemp MD Primary Care Provider [phone] Allergies Active Allergy Reactions Criticality Noted Date Comments Kaelumetone 09/15/2016 Medications esomeprazole (nexIUM) 40 MG capsule Take 1 capsule by mouth Every Morning Before Breakfast. Active finasteride (PROSCAR) 5 MG tablet Take 1 tablet by mouth Daily. Active aspirin 81 MG EC tablet Take 1 tablet by mouth Daily. Active atorvastatin (LIPITOR) 20 MG tablet Take 1 tablet by mouth Daily. Active hydrochlorothiaz shirley (HYDRODIURIL) 25 MG tablet Take 1 tablet by mouth As Needed. Active isosorbide mononitrate (IMDUR) 30 MG 24 hr tablet Take 1 tablet by mouth Daily. 90 tablet 3 05/16/2019 Active doxazosin (CARDURA) 2 MG tablet TAKE 1 TABLET EVERY NIGHT 90 tablet 3 04/14/2021 Active metoprolol succinate XL (TOPROL-XL) 50 MG 24 hr tabletIndication s:Coronary artery disease involving [place] coronary artery of [place] heart without angina pectoris TAKE 1 TABLET DAILY 90 tablet 3 02/14/2022 Active vitamin B-12 (CYANOCOBALAMIN) 1000 MCG tablet Take 1 tablet by mouth Daily. 04/03/2023 Active furosemide (LASIX) 40 MG tablet 1 tablet As Needed. 05/22/2024 Active lisinopril (PRINIVIL,ZESTRI L) 40 MG tablet Take 1 tablet by mouth Daily. 90 tablet 3 06/20/2024 Active Active Problems Problem Noted Date Diagnosed Date Chest pain 04/09/2019 Overview (04/09/2019): Added automatically from request for surgery [id number] CAD (coronary artery disease) 09/15/2016 Overview (09/15/2016): a. May 1997, coronary artery bypass graft surgery x4 per Dr. Spencer: DOMÍNGUEZ to LAD, saphenous vein graft to D2, saphenous vein graft to RI, saphenous vein graft to OM. b. 2012 myocardial perfusion study with no reversible defect, preserved left ventricular function. PVD (peripheral vascular disease) 09/15/2016 Overview (09/15/2016): No claudication. Hypertension 09/15/2016 Dyslipidemia 09/15/2016 Overview (09/15/2016): 1. Dyslipidemia on statin therapy followed by Dr. Kemp. Osteoarthritis 09/15/2016 Overview (09/15/2016): Multilevel lumbar disk fusion and dai placement per Dr. Burrell, 2013 Neuropathy 09/15/2016 Overview (09/15/2016): Lower extremity neuropathy followed per Dr. Hoover. Bradycardia 09/15/2016 Overview (09/15/2016): Asymptomatic bradycardia. Improved pulse rate on decreased dose of metoprolol to 50 mg. Family History Relation Name Status Comments Father Mother Social History Tobacco Use Types Packs/Day Years Used Date Smoking Tobacco: Former Cigarettes Q uit: 10/18/1986 Passive Smoke Exposure: Past Smokeless Tobacco: Never Tobacco Cessation:Counseling Given: Not Answered Alcohol Use Standard Drinks/Week Comments No 0 (1 standard drink = 0.6 oz pur e alcohol) Abuse Screen Answer Date Recorded Unsafe at Home or Work/School Not on file Feels Threatened by Someone? Not on file 05/2023 Does Anyone Keep You from Co ntacting Others or Doint Things Outside the Home? Not on file 07/03/2023 Physical Sign of Abuse Present Not on file 1 Housing Stability Answer Date Recorded Current Living Arrangements Not on file 1005/2023 Potentially Unsafe Housing Conditions Not on gill e 07/03/2023 Family and Community Support Answer Elias e Recorded Help with Day-to-Day Activities Not on file 07/03/2023 Lonely or Isolated Not on file 07/03/2023 Employment Answer Date Recorded Do you want help finding or keeping work or a magnolia b? Not on file 07/03/2023 Disabilities Answer Date Recorded Concentrating, Remembering, or Making Decisions Difficulty Not on file 07/03/2023 Doing Errands Independently Difficulty Not on fi le 07/03/2023 Education Answer Date Recorded Help with school or training? Not on file Preferred Language Not on file 07/03/2023 Sex and Gender Information Value Date Recorded Sex Assigned at Not on file Legal Sex Male 10:44 AM EDT Gender Identity Not on file Sexual Orientation Not on file Last Filed Vital Signs Vital Sign Reading Time Taken Comments Blood Pressure 122/60 06/20/2024 11:56 AM EDT Pulse 68 06/20/2024 11:56 AM EDT Temperature 35.8 C (96.4 F) 03/05/2020 1:22 PM EDT Respiratory Rate 18 04/12/2019 1:56 PM EDT Oxygen Saturation 96% 06/20/2024 11:56 AM EDT Inhaled Oxygen Concentration - - Weight 104 kg (230 lb) 06/20/2024 11:56 AM EDT Height 180.3 cm (5' 11 ) 06/20/2024 11:56 AM EDT Body Mass Index 32.08 06/20/2024 11:56 AM EDT Plan of Treatment Upcoming Encounters Date Type Department Care Team (Late st Contact Info) Description 06/19/2025 2:45 PM EDT Office Visit [facility] [address] [facility] [place] [place] [address] Noam Sanchez MD [address] [address] 10/02/2025 3:45 PM EST Office Visit [facility] [address] [facility] [facility] [place] [address] Noam Sanchez MD [address] [place] [address] Health Maintenance Due Date Last Done Comments TDAP/TD VACCINES (1 - Tdap) 1955 Pneumococcal Vaccine 50+ (1 of 1 - PCV) 1986 ZOSTER VACCINE (1 of 2) 1986 RSV Vaccine - Adults (1 - 1- dose 75+ series) 2011 ANNUAL WELLNESS VISIT 08/22/2017 LIPID PANEL 04/12/2020 04/12/2019 COVID-19 Vaccine (6 2023-2 5 season) 2024 07/18/2022, 01/04/2022, 06/10/2021, Additional history exists INFLUENZA VACCINE 06/25/2025 07/31/2023, 07/18/2022 Procedures Procedure Name Priority Date/Time Associated Diagnosis Comments LIPID PANEL STAT 04/12/2019 7:58 AM EDT from Last 3 Months or Most Recently Relevant to Health Maintenance Results * (ABNORMAL) Lipid Panel (04/12/2019 7:58 AM EDT) Total Cholesterol 109 0 - 200 mg/dL 04/12/2019 9:31 AM EDT [facility] Triglycerides 102 0 - 150 mg/dL 04/12/2019 9:31 AM EDT [facility] HDL Cholesterol 38(L) 40 - 60 mg/dL 04/12/2019 9:31 AM EDT [facility] LDL Cholesterol 51 0 - 100 mg/dL 04/12/2019 9:31 AM EDT [facility] VLDL Cholesterol 20.4 mg/dL 04/12/20 9:31 AM EDT [facility] LDL/HDL Ratio 1.33 04/12/2019 9:31 AM EDT [facility] Blood Line / Unknown 04/12/2019 7: 58 AM EDT 04/12/2019 9:02 AM EDT Narrative [facility] - 04/12/2019 9:31 AM EDT Cholesterol Reference Ranges (U.S. Department of Health and Human Services ATP III Classifications) Desirable <200 mg/dL Borderline High 200-239 mg/dL High Risk >240 mg/dL Triglyceride Reference Ranges (U.S. Department of Health and Human Services ATP III Classifications) Normal <150 mg/dL Borderline High 150-199 mg/dL High 200-499 mg/dL Very High >500 mg/dL HDL Reference Ranges (U.S. Department of Health and Human Services ATP III Classifcations) Low <40 mg/dl (major risk factor for CHD) High >60 mg/dl ('negative' risk factor for CHD) LDL Reference Ranges (U.S. Department of Health and Human Services ATP III Classifcations) Optimal <100 mg/dL Near Optimal 100-129 mg/dL Borderline High 130-159 mg/dL High 160-189 mg/dL Very High >189 mg/dL Nicol Fajardo APRN LAB BLOOD ORDERABLES Final Result [facility]
[address] [place] [address], from Last 3 Months or Most Recently Relevant to Health Maintenance Insurance Care Teams Realty Loan Specialist Relationship Specialty Start Date End Date Oseas Kemp MD [address] [place] [address] [place] [address] PCP - General 12/11/15
[2025-04-23 13:34] VITALS: BP 118/52; PULSE 69; RESP 14; O2SAT 97; BMI 26.4
--- NOTE | 2025-04-23 14:04 | EXP.PAIN.SOA ---
[facility] Disclaimer: The information contained in this section may have been updated after the patient was seen, as this information can be updated by other users. Medical History Right shoulder pain Left hip pain Left buttock pain Low back pain Lumbar radicular pain Trochanteric bursitis, left hip Joint effusion Acute shoulder pain Thrombocytopenia Kidney failure Primary osteoarthritis, right shoulder Primary generalized (osteo)arthritis Constipation Atherosclerotic heart disease of [place] coronary artery without angina pectoris HTN (hypertension) GERD (gastroesophageal reflux disease) HLD (hyperlipidemia) Family History Other Unknown family medical history Social History Smoking Status: Former smoker alcohol intake: never substance use type: denies use current occupational status: other Travel in the last 8 weeks?: None PM Subjective & Objective Subjective Subjective:: Patient is a pleasant 89-year-old male who [facility]. He rates his pain a 7 out of 10 and states it is still on his right shoulder. Patient did see orthopedics with Dr. Haley. They do state that the PA Robert was either recommending shoulder replacement or continued injection therapy. They do state that he got an injection that day however has not noticed significant relief just yet. He does state this was about 3 weeks ago. Patient is not interested in shoulder replacement. He states the pain has still been better than what it was previously however certain movements do still cause pain such as pulling a blanket up. He states he was able to put on his shirt with minimal issues. Patient is prescribed compounded cream from our office. His Jerome has been reviewed and is appropriate. Review of Systems: General: No recent weight changes, no fever, no sleep disturbances Respiratory: No cough, no shortness of air, no recurring pulmonary infections Cardiovascular/peripheral vascular: No chest pain, no palpitations, no edema, no shortness of breath Gastrointestinal: No new onset incontinence, normal bowel movements reported Genitourinary: No new onset incontinence Musculoskeletal: Right shoulder pain Psychiatric: [Normal mood/affect] Neurological: [Denies weakness in extremities], [denies balance issues] Pain at rest (0-10 scale): 7 Objective Objective:: Physical Exam: General: Alert and oriented x3, no acute distress, pleasant and cooperative Lungs: Respirations even and unlabored, symmetrical chest expansion Eyes: PERRL Musculoskeletal: Flexion and extension of right shoulder somewhat guarded secondary to pain, [antalgic gait noted] Neurological: Speech clear, no gross sensory deficit Has patient had previous pain injection?: No Conservative treatment options previously tried: Home exercise plan Length of treatment: Longer than 12 weeks Meds Home Medications and Allergies Home Medications ?Medication ?Instructions ?Recorded ?Confirmed ?Type aspirin 81 mg tablet,delayed 81 mg PO DAILY 11/27/18 04/23/25 History release (Adult Low Dose Aspirin) atorvastatin 40 mg tablet 40 mg PO DAILY #90 tabs 03/20/24 04/23/25 Rx cyanocobalamin (vitamin B-12) 1,000 mcg PO DAILY #100 caps 04/19/24 04/23/25 Rx 1,000 mcg capsule hydrocodone 5 mg-acetaminophen 325 1 tab PO DAILY #30 tabs 07/15/24 04/23/25 Rx mg tablet doxazosin 4 mg tablet 4 mg PO DAILY 07/24/24 04/23/25 History esomeprazole magnesium 40 mg 40 mg PO DAILY 07/24/24 04/23/25 History capsule,delayed release finasteride 5 mg tablet 5 mg PO DAILY 07/24/24 04/23/25 History bumetanide 1 mg tablet 2 mg (2 x 1 mg) PO Q8H 7 days #42 07/26/24 04/23/25 Rx tabs dapagliflozin propanediol 10 mg 10 mg PO DAILY 30 days #30 tabs 07/26/24 04/23/25 Rx tablet (Farxiga) levofloxacin 750 mg tablet 750 mg PO DAILY #5 tabs 07/31/24 04/23/25 Rx apixaban 2.5 mg tablet (Eliquis) 2.5 mg PO BID To thin blood #180 02/04/25 04/23/25 Rx tabs metoprolol succinate 50 mg 25 mg PO DAILY 02/04/25 04/23/25 History tablet,extended release 24 hr diclofenac sodium 1 % topical gel 2 g topical QID #100 grams 03/03/25 04/23/25 Rx (Voltaren Arthritis Pain) diazepam 2 mg tablet 2 mg PO ONCE #1 tab 03/06/25 04/23/25 Rx polyethylene glycol 3350 17 See Rx Instructions .Route 03/07/25 04/23/25 Rx gram/dose oral powder .COMPLEX #510 grams New Prescriptions to Start Prescriptions: Allergies Allergy/AdvReac Type Severity Reaction Status Date / Time No Known Allergies Allergy Verified 03/03/25 10:06 Assessment and Plan *Assessment and plan (1) Rotator cuff tear arthropathy of right shoulder: Status: Acute Category: Medical Code(s): M75.101 - Unspecified rotator cuff tear or rupture of right shoulder, not specified as traumatic; M12.811 - Other specific arthropathies, not elsewhere classified, right shoulder (2) Arthritis of right shoulder: Status: Acute Category: Medical Code(s): M19.011 - Primary osteoarthritis, right shoulder Plan I did discuss with the patient that he may benefit from a right suprascapular nerve block. Risk and benefits were discussed with the patient however at this time he would like to wait. We will increase his compounded cream concentration and follow-up with him in 6 weeks. Patient is scheduled for follow-up with Dr. Haley office, mid April. Patient agrees with this plan of care. Patient has been instructed to contact the clinic with any concerns before the next appointment. Dr. Chavez has reviewed this note and agrees with this plan of care. This note was dictated using voice recognition software and make contain errors or omissions. All injections are used with Lidocaine, Bupivacaine and dexamethasone. Occasionally urine drug screen is needed to verify patient's compliance with our office pain contract. This is ordered based off specific treatments related to chronic pain with the potential to abuse certain medications.
== END 2025-04-23 23:59 | disposition home or self-care (01) ==
LOC: SC.PAIN 13:22
PROVIDERS: PCP Internal Medicine; Visit Provider Nurse Practitioner Family
DX: M75.101 Unspecified rotator cuff tear or rupture of right shoulder, not specified as traumatic (principal); M19.011 Primary osteoarthritis, right shoulder
CPT/HCPCS: 99212; G0463

== ENCOUNTER 2025-08-11 16:40 | Outpatient (CLI) | payer MEDICARE, SELFPAY ==
[2025-08-11 17:14] LABS: Hematocrit 35.9 % (42.0-52.0); Hemoglobin 12.0 g/dL (14.1-18.0); Immature Granulocytes % 0.3 %; Mean Corpuscular HGB Conc 33.4 g/dL (31.8-35.4); Mean Corpuscular Hemoglobin 32.8 pg (27.0-31.2); Mean Corpuscular Volume 98.1 fl (80-94); Nucleated Red Blood Cells % 0 %; Platelet Count 153 K/mm3 (142-424); Red Blood Count 3.66 M/mm3 (4.60-6.20); Red Cell Distribution Width-SD 44.4 fL; White Blood Count 6.9 K/mm3 (4.8-10.8)
[2025-08-11 18:06] LABS: Alanine Aminotransferase 18 U/L (12-78); Albumin Level 4.0 g/dl (3.5-5.0); Albumin/Globulin Ratio 1.5 (1.1-1.8); Alkaline Phosphatase 89 U/L (38-126); Anion Gap 14.0 mEq/L (5-15); Aspartate Amino Transferase 27 U/L (17-59); Bilirubin,Total 0.9 mg/dl (0.2-1.3); Blood Urea Nitrogen 48 mg/dl (9-20); Calcium 9.5 mg/dl (8.4-10.2); Carbon Dioxide 26 mmol/L (22.0-30.0); Chloride 102 mmol/L (98-107); Cholesterol 113 mg/dl (140-200); Creatinine,Serum 2.20 mg/dl (0.66-1.25); Estimated Glomerular Filt Rate 28 ml/min (>60); GFR (African American) 34 ML/MIN (>60); Globulin 2.7 g/dL (1.3-3.2); Glucose 112 mg/dl (74-100); HDL Cholesterol 43 mg/dl (40-60); Potassium 5.0 mmoL/L (3.5-5.1); Sodium 137 mmol/L (136-145); Total Protein,Serum 6.7 g/dl (6.3-8.2); Triglycerides 121 mg/dl (30-150)
== END 2025-08-11 23:59 ==
LOC: LAB.DROPOF 08-12 11:16
PROVIDERS: PCP Internal Medicine; Visit Provider Internal Medicine
DX: R10.31 Right lower quadrant pain (principal); E78.5 Hyperlipidemia, unspecified; I10 Essential (primary) hypertension
CPT/HCPCS: 36415; 80053; 80061; 85025